=== PATIENT | male | born 1975 | race American Indian/Alaskan Native ===

== ENCOUNTER 2016-08-16 09:58 | Inpatient (IN) | payer MEDICARE, OTHER ==
[2016-08-16 10:12] VITALS: BMI 25.8
[2016-08-16] MEDS ORDERED: Benzoin Compound Tincture (60 ml) TOP STA (10:12)
[2016-08-16 10:36] LABS: BASO # 0.1 K/uL (0.0-0.2); BASO % 0.8 % (0.0-2.0); EOS # 0.2 K/uL (0.0-0.7); EOS % 3.2 % (0.0-4.0); HEMATOCRIT 29.2 % (35.0-51.0); LYMPH # 1.6 K/uL (1.0-4.3); LYMPH % 22.6 % (20.0-40.0); MEAN CELL VOLUME 78.1 fL (80.0-94.0); MEAN CORPUSCULAR HEMOGLOBIN 23.9 pg (27.0-31.0); MEAN CORPUSCULAR HGB CONC 30.5 g/dL (33.0-37.0); MEAN PLATELET VOLUME 9.4 fL (7.2-11.7); MONO # 0.4 K/uL (0.0-0.8); MONO % 5.8 % (0.0-10.0); RED CELL DISTRIBUTION WIDTH 19.7 % (11.5-14.5); WHITE BLOOD COUNT 6.9 K/uL (4.8-10.8)
[2016-08-16 10:44] LABS: INR 1.1
[2016-08-16] MEDS ORDERED: Midazolam 2 MG/2 ML VIAL ONE ×2 (10:47→11:04)
[2016-08-16] MEDS ORDERED: Midazolam 2 MG/2 ML VIAL IV STA ×2 (10:54→11:04)
[2016-08-16 11:03] LABS: POTASSIUM 3.7 mmol/L (3.6-5.2)
[2016-08-16] MEDS ORDERED: Propofol 10 mg/ml 1,000 MG/100 ML VIAL ONE (11:03)
[2016-08-16 11:05] LABS: ALB/GLOB RATIO 1.2 (1.0-2.1); BILIRUBIN,TOTAL 0.6 mg/dL (0.2-1.3); TOTAL PROTEIN 6.7 g/dL (6.3-8.3)
[2016-08-16 11:06] LABS: CALCIUM 9.2 mg/dl (8.6-10.4)
[2016-08-16] MEDS ORDERED: Propofol 10 mg/ml Inj (20 ML) IV ONE (11:13)
[2016-08-16] MEDS: Propofol 10 mg/ml 1,000 MG/100 ML VIAL IV PRN ×4 (11:16→18:36)
--- NOTE | 2016-08-16 11:25 | C.PDOC ---
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 As per EMS, patient had a witnessed arrest during hemodialysis. HD staff states to EMS, patient received one defibrillator prior to their arrival. Pt found unconscious with sinus tachycardia and palpable pulse. (+) airway compromise, that improved w/ B/L nasal trumpet prior to arrival. Patient given bicarb and calcium en route. Fingerstick 180. All other Hx unable to obtain due to clinical condition. 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 PER EMS, WITNESSED ARREST DURING HD. HD STAFF STATES TO EMS PT RECEIVED 1 DEFIB PRIOR TO THEIR ARRIVAL. FOUND PT UNCONSCIOUS + SINUS TACH W PALP PULSE. 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 GIVEN BICARB AND CALCIUM EN ROUTE. FS 180 RO UTO EXAM SEVERE DIST, HYPOTENSIVE 100% ON NRB HEENT PERRLA +PROFUSE ORAL SECRETIONS; NO EPISTAXIS B/L NASAL TRUMPETS IN PLACE NO STRIDOR LUNGS SPONT RESP CTA B/L NO W/R/R CV RRR SINUS TACH PALP RADIAL ABD NO DISTENTION, SOFT NEURO UNRESPONSIVE TO VERBAL +GAG REFLEX, +FOCAL RESPONSE TO PAIN SKIN DIAPH WARM MDM ?CARDIAC ARREST VS NEW ONSET SZ W BREAKTHROUGH SZ ACTIVITY IN ER; +RESP DISTRESS. Time Seen by Provider: 08/16/16 10:00 Chief Complaint (Nursing): Cardiac Arrest Past Medical History Reviewed: Historical Data, Nursing Documentation, Vital Signs Vital Signs: Last Vital Signs Temp 97.6 F 08/16/16 10:12 Pulse 110 H 08/16/16 14:00 Resp 18 08/16/16 14:00 BP 108/70 08/16/16 14:00 Pulse Ox 98 08/16/16 14:00 - Medical History PMH: Fractures (Rt. Finger Compound Fx.15 Yrs ago.), HTN, End Stage Renal Disease, Chronic Kidney Disease (ESRD) - [facility] Procedures INSERTION OF INFUSION DEV INTO INF VENA CAVA, PERC APPROACH (12/09/15) INSERTION OF INFUSION DEV INTO R FEMOR VEIN, PERC APPROACH (12/17/15) PERFORMANCE OF URINARY FILTRATION, SINGLE (12/09/15) Family History: States: No Known Family Hx - Social History Hx Alcohol Use: No Hx Substance Use: No - Immunization History Hx Tetanus Toxoid Vaccination: No Hx Influenza Vaccination: No Hx Pneumococcal Vaccination: No Review Of Systems Review Of Systems: ROS cannot be obtained secondary to pt's inabilty to answer questions. Physical Exam - Physical Exam Appears: Other (SEVERE DIST, HYPOTENSIVE 100% ON NRB) Skin: Warm, Diaphoretic Head: Other (PERRLA +PROFUSE ORAL SECRETIONS; NO EPISTAXIS B/L NASAL TRUMPETS IN PLACE) Eye(s): bilateral: PERRL Nose: No Epistaxis Cardiovascular: Rhythm Regular, No Murmur, Other (PALP RADIAL) Respiratory: No Stridor, Other (SPONT RESP CTA B/L NO W/R/R) Gastrointestinal/Abdominal: Soft, No Distention Neurological/Psych: Other ( UNRESPONSIVE TO VERBAL +GAG REFLEX, +FOCAL RESPONSE TO PAIN) ED Course And Treatment - Laboratory Results Result Diagrams: 08/16/16 10:29 08/16/16 10:29 ECG: Interpreted By Ct ECG Rhythm: Sinus Tachycardia (108) ECG Interpretation: Abnormal - Radiology CXR: Interpreted by Ct CXR Interpretation: Yes: Other (NABIL ARLENE) Endotracheal Intubation - Endotracheal Intubation Intubated With ETT Size: 8 Blade Type Used: Curved Indication: Respiratory Failure, Airway Protection Intubated: Orally Pre-Intubation Airway Assessment: Ventilated And Oxygenated, Appears To Have A difficult Airway Medications Used During Pre-Intubation: Midazolam Paralyzed With: Succinylcholine Post-Intubation Assessment: ETT Secured AT (cm): (22), Breath Sounds Equal Bilat , Placement Confirmed Via CXR, Color Change W/End Tidal CO2 Detector, Oxygen Saturation: (100) Procedure: Blank - Time Time Performed: 11:00 - Time Out Time Out: Patient ID confirmed - Procedure Procedure:: OROGASTRIC TUBE - Consent obtained: Consent obtained: Emergent consent implied - Performed by: Performed by:: Attending physician - Contraindications: Contraindications:: None - Patient Position Patient Position:: Supine - Location Location: Mouth - Tube Size Tube size Peruvian:: 14 - Result Result: Successful - Post-Procedure Post-procedure:: Vital signs stable, Other (+GASTRIC SOUND W AUSCULATION, + GASTRIC ASPIRATION) Progress - Re-Evaluation Re-evaluation Note: 08/16/16 10:20 EXAM UNCH 100% +GAG, FOCAL RESPONSE TO PAIN. 08/16/16 10:41 +NEW ONSET SEIZURE TONIC CLONIC. RELIEVED W ATIVAN. INCR RESP DISTRESS. SINUS TACH ON MONITOR, 100%. WILL INTUBATE FOR AIRPROTECTION UNABLE TO PROCEED W CODE FREEZE DUE TO CLIN COND @ THIS TIME. 08/16/16 10:50 RECUR SZ, REPEAT ATIVAN GIVEN. 08/16/16 11:31 REPEAT CXR: +ETT ABOVE BRYAN SP INTUBATION PENDING CT HEAD 08/16/16 12:13 D/W DR MCLAUGHLIN NO EMERGENT NEED FOR HD. WILL CONSULT. STATES PT IS CHRONICALLY ELEVATED HTN DIATOLIC <100. FAMILY @ BEDSIDE. PMD SKLOWER. STABLE ON VENT W HTN PT W EXCLUSION CRITERIA FOR CODE FREEZE. 08/16/16 13:33 CT HEAD NEG D/W DR RILEY ACCEPTS FOR ICU - Data Reviewed Data Reviewed: Lab, Diagnostic imaging, EKG, Old records - Critical Care Citical Care: Excluding Proc Time Critical Care Time: 120 minutes Medical Decision Making Medical Decision Making: MDM ?CARDIAC ARREST VS NEW ONSET SZ W BREAKTHROUGH SZ ACTIVITY IN ER; +RESP DISTRESS. 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 - Scribe Statement The provider has reviewed the documentation as recorded by the Scribe (Mikael Mathews) All medical record entries made by the Scribe were at my direction and personally dictated by me. I have reviewed the chart and agree that the record accurately reflects my personal performance of the history, physical exam, medical decision making, and the department course for this patient. I have also personally directed, reviewed, and agree with the discharge instructions and disposition. Decision To Admit - Pt Status Changed To: Hospital Disposition Of: Inpatient - Admit Certification Admit to Inpatient:: After my assessment, the patient will require hospitalization for at least two midnights. This is because of the severity of symptoms shown, intensity of services needed, and/or the medical risk in this patient being treated as an outpatient. - InPatient: Physician Admission Certification:: SEE NOTE - . Bed Request Type: ICU Admitting Physician: Arjun Beasley Patient Diagnosis: Respiratory failure, Cardiac arrest, New onset seizure, ESRD (end stage renal disease)
[2016-08-16 11:59] LABS: TROPONIN I 0.241 ng/mL (0.00-0.120)
--- NOTE | 2016-08-16 12:02 | RAD ---
PROCEDURE: CHEST RADIOGRAPH, 1 VIEW HISTORY: CARDIAC ARREST COMPARISON: 12/09/2015 FINDINGS: LUNGS: Moderate venous congestion with right hilar prominence and patchy left basilar airspace opacity. Right paratracheal airspace opacity may represent prominent vasculature. Correlation with lateral view may be helpful. Circumferential right pleural thickening. Correlation with chest CT may be helpful. PLEURA: As above. CARDIOVASCULAR: Cardiomegaly. OSSEOUS STRUCTURES: No significant abnormalities. VISUALIZED UPPER ABDOMEN: Normal. OTHER FINDINGS: None. IMPRESSION: Moderate venous congestion with right hilar prominence and patchy left basilar airspace opacity. Right paratracheal airspace opacity may represent prominent vasculature. Correlation with lateral view may be helpful. Circumferential right pleural thickening. Correlation with chest CT may be helpful. Cardiomegaly.
--- NOTE | 2016-08-16 12:16 | RAD ---
Chest x-ray single frontal view History: ET tube placement. Comparison: 08/17/2015 Findings: Endotracheal tube approximately 5 centimeters from the ari. Advancement approximately 1-2 centimeters may be helpful. NG tube with the distal tip not well visualized. Repeat study is recommended. Mild venous congestion. Patchy left basilar airspace opacity. Lucency along the right heart border which may represent Mach artifact. Clinical correlation. Repeat study may be helpful. Right hilar prominence. Persistent right paratracheal airspace opacity may represent prominent vasculature. Circumferential pleural thickening in the right deny thorax. Impression: Endotracheal tube approximately 5 centimeters from the ari. Advancement approximately 1-2 centimeters may be helpful. NG tube with the distal tip not well visualized. Repeat study is recommended. Mild venous congestion. Patchy left basilar airspace opacity. Lucency along the right heart border which may represent Mach artifact. Clinical correlation. Repeat study may be helpful. Right hilar prominence. Persistent right paratracheal airspace opacity may represent prominent vasculature. Circumferential pleural thickening in the right deny thorax.
--- NOTE | 2016-08-16 12:40 | CP.PCM.CON ---
History of Present Illness - History of Present Illness History of Present Illness: seen and examined and mother at bedside pt is a 41 yo male w/ hx of esrd on hd tts, femoral permcath. hx of htn, sec hyperparathyroidism. Was undergoing usual hd - noted to have high heart rate in 170 range, improved to 115 after hd terminated, pt passed out 2.5 hr of hd initiation. CPR done, pt shocked once, EMS found him unresponsive but good pulse. Pt was noticed to be seizing twice in ER, was intubated for airway protection. denies any recent illnesses, travel, sick contact. no fevers chills n/v/d/ neck stiffness. No prior hx of seizures. No missed hd, last hd monday. ROS: unable to obtain Allergies: NKDA PMHx: as per HPI surgeries: HD catheter family hx: NC Past Patient History - Infectious Disease Hx of Infectious Diseases: None - Past Medical History & Family History Past Medical History?: Yes - Past Social History Smoking Status: Never Smoked - CARDIAC Hx Hypertension: Yes - PULMONARY Hx Respiratory Disorders: No - NEUROLOGICAL Hx Neurological Disorder: No - HEENT Hx HEENT Problems: No - RENAL Hx Chronic Kidney Disease: Yes (ESRD) - ENDOCRINE/METABOLIC Hx Endocrine Disorders: No - HEMATOLOGICAL/ONCOLOGICAL Hx Blood Disorders: No - INTEGUMENTARY Hx Dermatological Problems: No - MUSCULOSKELETAL/RHEUMATOLOGICAL Hx Fractures: Yes (Rt. Finger Compound Fx.15 Yrs ago.) - GASTROINTESTINAL Hx Gastrointestinal Disorders: No - GENITOURINARY/GYNECOLOGICAL Hx Genitourinary Disorders: Yes Other/Comment: on HD VOIDS CLEAR YELLOW - PSYCHIATRIC Hx Substance Use: No - SURGICAL HISTORY Hx Surgeries: Yes Other/Comment: RIGHT GROIN DIAYSIS CATH 11/2015, P:D Catheter 4 Yrs. Ago,Rt. Perma cath - ANESTHESIA Hx Anesthesia: Yes Hx Anesthesia Reactions: No Hx Malignant Hyperthermia: No Meds Allergies/Adverse Reactions: Allergies Allergy/AdvReac Type Severity Reaction Status Date / Time shellfish Allergy Uncoded 08/16/16 10:09 Physical Exam - Constitutional Additional comments: intubated sedated - Head Exam Head Exam: ATRAUMATIC, NORMAL INSPECTION - Eye Exam Eye Exam: Normal appearance - ENT Exam Additional comments: et tube - Neck Exam Neck exam: Positive for: Normal Inspection - Respiratory Exam Additional comments: mechanical vent sounds - Cardiovascular Exam Cardiovascular Exam: Tachycardia, REGULAR RHYTHM - GI/Abdominal Exam GI & Abdominal Exam: Diminished Bowel Sounds, Distended, Soft - Extremities Exam Extremities exam: Positive for: normal inspection Results - Vital Signs Recent Vital Signs: Last Vital Signs Temp 97.6 F 08/16/16 10:12 Pulse 114 H 08/16/16 12:33 Resp 18 08/16/16 12:33 BP 99/69 L 08/16/16 12:33 Pulse Ox 99 08/16/16 12:33 - Labs Result Diagrams: 08/16/16 10:29 08/16/16 10:29 Labs: Laboratory Results - last 24 hr 08/16/16 08/16/16 08/16/16 10:17 10:29 10:29 WBC 6.9 RBC 3.74 L Hgb 8.9 L Hct 29.2 L MCV 78.1 L MCH 23.9 L MCHC 30.5 L RDW 19.7 H Plt Count 139 MPV 9.4 Neut % (Auto) 67.6 Lymph % (Auto) 22.6 Hinds % (Auto) 5.8 Eos % (Auto) 3.2 Baso % (Auto) 0.8 Neut # 4.7 Lymph # 1.6 Hinds # 0.4 Eos # 0.2 Baso # 0.1 PT 12.5 H INR 1.1 APTT 22 Sodium Potassium Chloride Carbon Dioxide Anion Gap BUN Creatinine Est GFR ( Amer) Est GFR (Non-Af Amer) POC Glucose (mg/dL) 138 H Random Glucose Calcium Total Bilirubin AST ALT Alkaline Phosphatase Troponin I NT-Pro-B Natriuret Pep Total Protein Albumin Globulin Albumin/Globulin Ratio Lipase 08/16/16 10:29 WBC RBC Hgb Hct MCV MCH MCHC RDW Plt Count MPV Neut % (Auto) Lymph % (Auto) Hinds % (Auto) Eos % (Auto) Baso % (Auto) Neut # Lymph # Hinds # Eos # Baso # PT INR APTT Sodium 139 Potassium 3.7 Chloride 92 L Carbon Dioxide 28 Anion Gap 23 H BUN 41 H Creatinine 9.0 H* D Est GFR ( Amer) 8 Est GFR (Non-Af Amer) 6 POC Glucose (mg/dL) Random Glucose 114 H Calcium 9.2 Total Bilirubin 0.6 AST 37 ALT 31 Alkaline Phosphatase 348 H Troponin I 0.2410 H* NT-Pro-B Natriuret Pep 05844 H Total Protein 6.7 Albumin 3.6 Globulin 3.1 Albumin/Globulin Ratio 1.2 Lipase 52 Assessment & Plan (1) Seizure Status: Acute (2) Cardiac arrest Status: Acute (3) Anemia Status: Acute (4) ESRD (end stage renal disease) Status: Chronic (5) HTN (hypertension) Status: Chronic - Assessment and Plan (Free Text) Assessment: -head imaging - icu admission -neuro consultation -repeat chem later today. -probable hd tomorrow if lytes stable. Pt had 2.5 hours today -iv antihypertensives per icu team
--- NOTE | 2016-08-16 13:29 | CT ---
PROCEDURE: CT HEAD WITHOUT CONTRAST. HISTORY: SEIZURE, CARDIAC ARREST COMPARISON: None available. TECHNIQUE: Axial computed tomography images were obtained through the head/brain without intravenous contrast. Radiation dose: Total exam DLP = 1046.86 mGy-cm. This CT exam was performed using one or more of the following dose reduction techniques: Automated exposure control, adjustment of the mA and/or kV according to patient size, and/or use of iterative reconstruction technique. FINDINGS: HEMORRHAGE: No intracranial hemorrhage. BRAIN: No mass effect or edema. No atrophy or chronic microvascular ischemic changes. VENTRICLES: Unremarkable. No hydrocephalus. CALVARIUM: Abnormal appearance of the calvarium, diffusely, with loss of normal inner and outer table definition. Granular appearance of the calvarium. Findings consistent with renal osteodystrophy. PARANASAL SINUSES: Mild chronic ethmoid and right maxillary sinusitis. MASTOID AIR CELLS: Unremarkable as visualized. No inflammatory changes. OTHER FINDINGS: There are 2 oral tubes identified, likely orogastric and joan tracheal. Please correlate. IMPRESSION: No intracranial mass, hemorrhage or evidence of acute infarct. 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
--- NOTE | 2016-08-16 13:55 | CP.PCM.CON ---
<Kacie Garcia - Last Filed: 08/16/16 14:03> History of Present Illness - History of Present Illness History of Present Illness: ICU Consult note Reason for consult: cardiac arrest Please note history as per and mother at bedside as patient was sedated on propofol, intubated on vent HPI: 41 year old male PMHx ESRD on HD TTS, HTN, secondary hyperparathyroidism presented s/p cardiac arrest at HD center. Patient was having dialysis for 2.5 hours and was complaining of dizziness and soon became unresponsive. Patient was coded and was defibrillated one time before EMS arrived. Patient was found unconscious with sinus tachycardia and palpable pulse and had bilateral nasal trumpets placed and was brought to ER. Patient was given bicarb and calcium en route to ED and fingerstick BG was 180. In the ED patient had profuse oral secretions and had two witnessed tonic clonic seizures and was given 2 doses of ativan. Patient intubated for airway protection and placed on vent. reports that since last year patient has been complaining of some SOB and dyspnea on exertion [especially when walking up stairs at home and walking 1/2 to 1 a block] and b/l leg swelling and pain. Patient also had an episode of dizziness 1 month ago during HD after which he had en episode of nonbloody nonbiliuos emesis. denied patient having missed HD, no prior hx of seizures , no travel hx, sick contacts, recent illnesses. denied patient complaining of any recent fever, chills, pain in his chest, cough, abd pain, bowel complaints. PMD: Dr Bearden Collar Feller: Dr. Mata/Alivia PMHx: ESRD on HD TTS, HTN, secondary hyperparathyroidism Meds: please see chart ALL: NKDA PSurg: femoral permacath 12/16/16 PHospitalization: Nov 2015 for hyperkalemia FamHx: no hx of CVA, [place]; lung cancer in aunt who is a smoker SocHx: denies tobacco, EtOH, drug use. Currently unemployed and lives at home with . Denied any recent travel. ROS: unobtainable Review of Systems - Review of Systems Systems not reviewed;Unavailable: Acuity of Condition Past Patient History - Infectious Disease Hx of Infectious Diseases: None - Past Medical History & Family History Past Medical History?: Yes - Past Social History Smoking Status: Never Smoked - CARDIAC Hx Hypertension: Yes - PULMONARY Hx Respiratory Disorders: No - NEUROLOGICAL Hx Neurological Disorder: No - HEENT Hx HEENT Problems: No - RENAL Hx Chronic Kidney Disease: Yes (ESRD) - ENDOCRINE/METABOLIC Hx Endocrine Disorders: No - HEMATOLOGICAL/ONCOLOGICAL Hx Blood Disorders: No - INTEGUMENTARY Hx Dermatological Problems: No - MUSCULOSKELETAL/RHEUMATOLOGICAL Hx Fractures: Yes (Rt. Finger Compound Fx.15 Yrs ago.) - GASTROINTESTINAL Hx Gastrointestinal Disorders: No - GENITOURINARY/GYNECOLOGICAL Hx Genitourinary Disorders: Yes Other/Comment: on HD VOIDS CLEAR YELLOW - PSYCHIATRIC Hx Substance Use: No - SURGICAL HISTORY Hx Surgeries: Yes Other/Comment: RIGHT GROIN DIAYSIS CATH 11/2015, P:D Catheter 4 Yrs. Ago,Rt. Perma cath - ANESTHESIA Hx Anesthesia: Yes Hx Anesthesia Reactions: No Hx Malignant Hyperthermia: No Meds Allergies/Adverse Reactions: Allergies Allergy/AdvReac Type Severity Reaction Status Date / Time shellfish Allergy Uncoded 08/16/16 10:09 - Medications Medications: Current Medications Propofol (Diprivan) 1,000 mg in 100 mls @ 4.972 mls/hr IV .Q20H7M PRN; Protocol ; 9 MCG/KG/MIN PRN Reason: TITRATE PER MD ORDER Last Admin: 08/16/16 13:41 Dose: 4.972 mls/hr Physical Exam - Constitutional Appears: Other (sedated, intubated on vent) - Head Exam Head Exam: ATRAUMATIC, NORMAL INSPECTION, NORMOCEPHALIC - Eye Exam Eye Exam: Normal appearance, PERRL. absent: Conjunctival injection, Scleral icterus Pupil Exam: NORMAL ACCOMODATION, PERRL - ENT Exam ENT Exam: Mucous Membranes Moist Additional comments: ET tube in place- oral secretions noted - Neck Exam Neck exam: Positive for: Normal Inspection. Negative for: Lymphadenopathy - Respiratory Exam Respiratory Exam: Decreased Breath Sounds (vent sounds heard throughout), NORMAL BREATHING PATTERN. absent: Accessory Muscle Use, Rales, Rhonchi, Wheezes Additional comments: intubated on vent (14, 5, 550, 100%) - Cardiovascular Exam Cardiovascular Exam: Tachycardia, REGULAR RHYTHM, +S1, +S2. absent: Systolic Murmur - GI/Abdominal Exam GI & Abdominal Exam: Normal Bowel Sounds, Soft. absent: Firm - Extremities Exam Extremities exam: Positive for: normal capillary refill, pedal edema (trace b/l) , pedal pulses present - Neurological Exam Additional comments: sedated on propofol gtt - Skin Skin Exam: Dry, Intact, Normal Color, Warm Results - Vital Signs Recent Vital Signs: Last Vital Signs Temp 97.6 F 08/16/16 10:12 Pulse 104 H 08/16/16 13:30 Resp 18 08/16/16 13:30 BP 112/73 08/16/16 13:30 Pulse Ox 100 08/16/16 13:30 - Labs Result Diagrams: 08/16/16 10:29 08/16/16 10:29 Labs: Laboratory Results - last 24 hr 08/16/16 08/16/16 08/16/16 10:17 10:29 10:29 WBC 6.9 RBC 3.74 L Hgb 8.9 L Hct 29.2 L MCV 78.1 L MCH 23.9 L MCHC 30.5 L RDW 19.7 H Plt Count 139 MPV 9.4 Neut % (Auto) 67.6 Lymph % (Auto) 22.6 [place] % (Auto) 5.8 Eos % (Auto) 3.2 Baso % (Auto) 0.8 Neut # 4.7 Lymph # 1.6 [place] # 0.4 Eos # 0.2 Baso # 0.1 PT 12.5 H INR 1.1 APTT 22 Sodium Potassium Chloride Carbon Dioxide Anion Gap BUN Creatinine Est GFR ( Amer) Est GFR (Non-Af Amer) POC Glucose (mg/dL) 138 H Random Glucose Calcium Total Bilirubin AST ALT Alkaline Phosphatase Troponin I NT-Pro-B Natriuret Pep Total Protein Albumin Globulin Albumin/Globulin Ratio Lipase 08/16/16 10:29 WBC RBC Hgb Hct MCV MCH MCHC RDW Plt Count MPV Neut % (Auto) Lymph % (Auto) [place] % (Auto) Eos % (Auto) Baso % (Auto) Neut # Lymph # [place] # Eos # Baso # PT INR APTT Sodium 139 Potassium 3.7 Chloride 92 L Carbon Dioxide 28 Anion Gap 23 H BUN 41 H Creatinine 9.0 H* D Est GFR ( Amer) 8 Est GFR (Non-Af Amer) 6 POC Glucose (mg/dL) Random Glucose 114 H Calcium 9.2 Total Bilirubin 0.6 AST 37 ALT 31 Alkaline Phosphatase 348 H Troponin I 0.2410 H* NT-Pro-B Natriuret Pep 72326 H Total Protein 6.7 Albumin 3.6 Globulin 3.1 Albumin/Globulin Ratio 1.2 Lipase 52 Assessment & Plan - Assessment and Plan (Free Text) Assessment: 41 year old male PMHx ESRD on HD TTS, HTN, secondary hyperparathyroidism presented s/p cardiac arrest at HD center Plan: Neuro -intubated and sedated on propofol gtt -patient had 2 seizures in ER and was given ATivan 2mg x 2 -f/u EEG -CT head: unremarkable Cardiovascular -Patient s/p cardiac arrest and 1 defibrillation in HD center -f/u lipid panel -troponin 0.2410 -f/u repeat PATRICK with EKG -proBNP 96535 -f/u Echo -f/u D dimer -f/u venous dopplers b/l -ASA 81mg po daily -Plavix 75mg po daily -Crestor 10mg po hs -Metoprolol tartate 12.5mg po bid -Dr Haynes consulted Respiratory -respiratory failure -intubated on vent (5, 14, 550, 100%) -f/u ABG shock panel -CXR: mild venous congestion; patchy L basilar airspace opacity; lucency along R heart border which may represent artifact; R hilar prominence; persistent R paratracheal airspace opacity may represent prominent vascularture; circumferential pleural thickening in R hemithorax GI -no acute issues Renal -ESRD on HD TTS -probable HD tomorrow 08/17 -Dr Bunch consulted Heme -Anemia of chronic disease -H&H stable Endo -f/u HgbA1c -Accucheck Q6 -RISS q6 ID -f/u blood culture -f/u sputum culture DVT ppx: Heparin 5000u sc q12; SCD c/i for DVT suspection GI ppx: Pepcid 20mg ivp daily Code status: full code Case discussed with Dr. Hilario Garcia PGY2 <Neo Rich - Last Filed: 08/16/16 16:31> Meds - Medications Medications: Current Medications Aspirin (Aspirin Chewable) 81 mg PO DAILY [facility] Last Admin: 08/16/16 15:46 Dose: 81 mg Clopidogrel Bisulfate (Plavix) 75 mg PO DAILY [facility] Last Admin: 08/16/16 15:46 Dose: 75 mg Famotidine (Pepcid) 20 mg IVP DAILY [facility] Last Admin: 08/16/16 15:45 Dose: 20 mg Heparin Sodium (Porcine) (Heparin) 5,000 units SC Q12 [facility] Propofol (Diprivan) 1,000 mg in 100 mls @ 4.972 mls/hr IV .Q20H7M PRN; Protocol ; 9 MCG/KG/MIN PRN Reason: TITRATE PER MD ORDER Last Admin: 08/16/16 13:45 Dose: 18.1 mcg/kg/min, 10 mls/hr Insulin Aspart (Novolog) 0 unit SC Q6 [facility] PRN Reason: Protocol Metoprolol Tartrate (Lopressor) 12.5 mg PO BID [facility] Rosuvastatin Calcium (Crestor) 10 mg PO HS [facility] Results - Vital Signs Recent Vital Signs: Last Vital Signs Temp 98.7 F 08/16/16 14:45 Pulse 91 H 08/16/16 15:30 Resp 14 08/16/16 15:30 BP 130/98 H 08/16/16 14:38 Pulse Ox 100 08/16/16 16:11 - Labs Result Diagrams: 08/16/16 10:29 08/16/16 10:29 Labs: Laboratory Results - last 24 hr 08/16/16 08/16/16 08/16/16 14:59 15:30 15:30 D-Dimer, Quantitative 936 H Puncture Site Lr pCO2 36 pO2 421 H HCO3 28.8 H ABG pH 7.50 H ABG Total CO2 29.2 H ABG O2 Saturation 99.3 H ABG Base Excess 4.9 H Alberto Test Unable ABG Potassium 3.1 L A-a O2 Difference 247.0 Respiratory Index 0.6 Sodium 140.0 Chloride 106.0 Glucose 77 Lactate 1.4 Mechanical Rate 14 FiO2 100.0 Tidal Volume 550 PEEP 5 Hemoglobin A1c 5.4 Arterial Blood Potassium 3.1 L Attending/Attestation - Attestation I have personally seen and examined this patient.: Yes I have fully participated in the care of the patient.: Yes I have reviewed all pertinent clinical information: Yes Notes (Text): 08/16/16 16:25 Patient seen and examined. 41 year old male PMHx ESRD on HD TTS, HTN, secondary hyperparathyroidism presented s/p cardiac arrest at HD center, Status post cardioversion for ventricular tachycardia Intubated in the emergency room for seizures Now sedated on propofol Neurology and cardiology evaluation
[2016-08-16] MEDS ORDERED: (Novolog) Insulin Aspart, Recombinant 100 u/ml 10 ml vial SC SCH (14:30)
[2016-08-16 14:34] LABS: MAGNESIUM 2.3 mg/dL (1.6-2.3); PHOSPHOROUS 4.8 mg/dL (2.5-4.5)
[2016-08-16 15:03] LABS: ABG ALLEN TEST UNABLE; ABG MECHANICAL RATE 14; ATERIAL BLOOD GAS PEEP 5; DRAW SITE LR
--- NOTE | 2016-08-16 15:18 | CP.PCM.HP ---
<Kacie Garcia - Last Filed: 08/16/16 15:16> History of Present Illness - History of Present Illness History of Present Illness: Please note history as per and mother at bedside as patient was sedated on propofol, intubated on vent HPI: 41 year old male PMHx ESRD on HD TTS, HTN, secondary hyperparathyroidism presented s/p cardiac arrest at HD center. Patient was having dialysis for 2.5 hours and was complaining of dizziness and soon became unresponsive. Patient was coded and was defibrillated one time before EMS arrived. Patient was found unconscious with sinus tachycardia and palpable pulse and had bilateral nasal trumpets placed and was brought to ER. Patient was given bicarb and calcium en route to ED and fingerstick BG was 180. In the ED patient had profuse oral secretions and had two witnessed tonic clonic seizures and was given 2 doses of ativan. Patient intubated for airway protection and placed on vent. reports that since last year patient has been complaining of some SOB and dyspnea on exertion [especially when walking up stairs at home and walking 1/2 to 1 a block] and b/l leg swelling and pain. Patient also had an episode of dizziness 1 month ago during HD after which he had en episode of nonbloody nonbiliuos emesis. denied patient having missed HD, no prior hx of seizures , no travel hx, sick contacts, recent illnesses. denied patient complaining of any recent fever, chills, pain in his chest, cough, abd pain, bowel complaints. PMD: Dr Bearden Content Curator: Dr. Mata/Alivia PMHx: ESRD on HD TTS, HTN, secondary hyperparathyroidism Meds: please see chart ALL: NKDA PSurg: femoral permacath 12/16/16 PHospitalization: Nov 2015 for hyperkalemia FamHx: no hx of CVA, [place]; lung cancer in aunt who is a smoker SocHx: denies tobacco, EtOH, drug use. Currently unemployed and lives at home with . Denied any recent travel. ROS: unobtainable Present on Admission - Present on Admission Any Indicators Present on Admission: No Review of Systems - Review of Systems Systems not reviewed;Unavailable: Acuity of Condition Past Patient History - Infectious Disease Hx of Infectious Diseases: None - Past Medical History & Family History Past Medical History?: Yes - Past Social History Smoking Status: Never Smoked - CARDIAC Hx Hypertension: Yes - PULMONARY Hx Respiratory Disorders: No - NEUROLOGICAL Hx Neurological Disorder: No - HEENT Hx HEENT Problems: No - RENAL Hx Chronic Kidney Disease: Yes (ESRD) - ENDOCRINE/METABOLIC Hx Endocrine Disorders: No - HEMATOLOGICAL/ONCOLOGICAL Hx Blood Disorders: No - INTEGUMENTARY Hx Dermatological Problems: No - MUSCULOSKELETAL/RHEUMATOLOGICAL Hx Fractures: Yes (Rt. Finger Compound Fx.15 Yrs ago.) - GASTROINTESTINAL Hx Gastrointestinal Disorders: No - GENITOURINARY/GYNECOLOGICAL Hx Genitourinary Disorders: Yes Other/Comment: on HD VOIDS CLEAR YELLOW - PSYCHIATRIC Hx Substance Use: No - SURGICAL HISTORY Hx Surgeries: Yes Other/Comment: RIGHT GROIN DIAYSIS CATH 11/2015, P:D Catheter 4 Yrs. Ago,Rt. Perma cath - ANESTHESIA Hx Anesthesia: Yes Hx Anesthesia Reactions: No Hx Malignant Hyperthermia: No Meds Allergies/Adverse Reactions: Allergies Allergy/AdvReac Type Severity Reaction Status Date / Time shellfish Allergy DIZZINESS Uncoded 08/16/16 16:54 Physical Exam - Constitutional Appears: Other (sedated on propofol gtt and intubated) - Head Exam Head Exam: ATRAUMATIC, NORMAL INSPECTION, NORMOCEPHALIC - Eye Exam Eye Exam: Normal appearance, PERRL. absent: Conjunctival injection, Scleral icterus Pupil Exam: NORMAL ACCOMODATION, PERRL - ENT Exam ENT Exam: Mucous Membranes Moist Additional comments: ET tube in place- oral secretions noted - Neck Exam Neck exam: Positive for: Normal Inspection. Negative for: Lymphadenopathy - Respiratory Exam Respiratory Exam: Decreased Breath Sounds (vent sounds heard throughout), NORMAL BREATHING PATTERN. absent: Rales, Rhonchi, Wheezes Additional comments: intubated on vent (14, 5, 550, 100%) - Cardiovascular Exam Cardiovascular Exam: Tachycardia, REGULAR RHYTHM, +S1, +S2. absent: Systolic Murmur - GI/Abdominal Exam GI & Abdominal Exam: Normal Bowel Sounds, Soft. absent: Firm - Extremities Exam Extremities exam: Positive for: normal capillary refill, pedal edema, pedal pulses present - Neurological Exam Additional comments: sedated on propofol gtt - Skin Skin Exam: Dry, Intact, Normal Color, Warm Results - Vital Signs Recent Vital Signs: Last Vital Signs Temp 97.6 F 08/16/16 10:12 Pulse 110 H 08/16/16 14:00 Resp 18 08/16/16 14:00 BP 108/70 08/16/16 14:00 Pulse Ox 98 08/16/16 14:00 - Labs Result Diagrams: 08/16/16 10:29 08/16/16 10:29 Labs: Laboratory Results - last 24 hr 08/16/16 08/16/16 08/16/16 10:17 10:29 10:29 WBC 6.9 RBC 3.74 L Hgb 8.9 L Hct 29.2 L MCV 78.1 L MCH 23.9 L MCHC 30.5 L RDW 19.7 H Plt Count 139 MPV 9.4 Neut % (Auto) 67.6 Lymph % (Auto) 22.6 [place] % (Auto) 5.8 Eos % (Auto) 3.2 Baso % (Auto) 0.8 Neut # 4.7 Lymph # 1.6 [place] # 0.4 Eos # 0.2 Baso # 0.1 PT 12.5 H INR 1.1 APTT 22 Puncture Site pCO2 pO2 HCO3 ABG pH ABG Total CO2 ABG O2 Saturation ABG Base Excess Alberto Test ABG Potassium A-a O2 Difference Respiratory Index Glucose Lactate Mechanical Rate FiO2 Tidal Volume PEEP Sodium Potassium Chloride Carbon Dioxide Anion Gap BUN Creatinine Est GFR ( Amer) Est GFR (Non-Af Amer) POC Glucose (mg/dL) 138 H Random Glucose Calcium Phosphorus Magnesium Total Bilirubin AST ALT Alkaline Phosphatase Troponin I NT-Pro-B Natriuret Pep Total Protein Albumin Globulin Albumin/Globulin Ratio Lipase Arterial Blood Potassium 08/16/16 08/16/16 10:29 14:59 WBC RBC Hgb Hct MCV MCH MCHC RDW Plt Count MPV Neut % (Auto) Lymph % (Auto) [place] % (Auto) Eos % (Auto) Baso % (Auto) Neut # Lymph # [place] # Eos # Baso # PT INR APTT Puncture Site Lr pCO2 36 pO2 421 H HCO3 28.8 H ABG pH 7.50 H ABG Total CO2 29.2 H ABG O2 Saturation 99.3 H ABG Base Excess 4.9 H Alberto Test Unable ABG Potassium 3.1 L A-a O2 Difference 247.0 Respiratory Index 0.6 Glucose 77 Lactate 1.4 Mechanical Rate 14 FiO2 100.0 Tidal Volume 550 PEEP 5 Sodium 139 140.0 Potassium 3.7 Chloride 92 L 106.0 Carbon Dioxide 28 Anion Gap 23 H BUN 41 H Creatinine 9.0 H* D Est GFR ( Amer) 8 Est GFR (Non-Af Amer) 6 POC Glucose (mg/dL) Random Glucose 114 H Calcium 9.2 Phosphorus 4.8 H Magnesium 2.3 Total Bilirubin 0.6 AST 37 ALT 31 Alkaline Phosphatase 348 H Troponin I 0.2410 H* NT-Pro-B Natriuret Pep 57467 H Total Protein 6.7 Albumin 3.6 Globulin 3.1 Albumin/Globulin Ratio 1.2 Lipase 52 Arterial Blood Potassium 3.1 L Assessment & Plan - Assessment and Plan (Free Text) Assessment: 41 year old male PMHx ESRD on HD TTS, HTN, secondary hyperparathyroidism presented s/p cardiac arrest at HD center Plan: Neuro -intubated and sedated on propofol gtt -patient had 2 seizures in ER and was given ATivan 2mg x 2 -f/u EEG -CT head: unremarkable Cardiovascular -Patient s/p cardiac arrest and 1 defibrillation in HD center -f/u lipid panel -troponin 0.2410 -f/u repeat PATRICK with EKG -proBNP 80500 -f/u Echo -f/u D dimer -f/u venous dopplers b/l -ASA 81mg po daily -Plavix 75mg po daily -Crestor 10mg po hs -Metoprolol tartate 12.5mg po bid -Dr Haynes consulted Respiratory -respiratory failure -intubated on vent (5, 14, 550, 100%) -f/u ABG shock panel -CXR: mild venous congestion; patchy L basilar airspace opacity; lucency along R heart border which may represent artifact; R hilar prominence; persistent R paratracheal airspace opacity may represent prominent vascularture; circumferential pleural thickening in R hemithorax GI -no acute issues Renal -ESRD on HD TTS -probable HD tomorrow 08/17 -Dr Bunch consulted Heme -Anemia of chronic disease -H&H stable Endo -f/u HgbA1c -Accucheck Q6 -RISS q6 ID -f/u blood culture -f/u sputum culture DVT ppx: Heparin 5000u sc q12; SCD c/i for DVT suspection GI ppx: Pepcid 20mg ivp daily Code status: full code Case discussed with Dr. Hilario Garcia PGY2 <Arjun Beasley H - Last Filed: 08/16/16 17:21> Results - Vital Signs Recent Vital Signs: Last Vital Signs Temp 97.6 F 08/16/16 16:00 Pulse 96 H 08/16/16 16:37 Resp 16 08/16/16 16:37 BP 102/72 08/16/16 16:37 Pulse Ox 100 08/16/16 16:37 - Labs Result Diagrams: 08/16/16 10:29 08/16/16 10:29 Labs: Laboratory Results - last 24 hr 08/16/16 08/16/16 08/16/16 14:59 15:30 15:30 D-Dimer, Quantitative Puncture Site Lr pCO2 36 pO2 421 H HCO3 28.8 H ABG pH 7.50 H ABG Total CO2 29.2 H ABG O2 Saturation 99.3 H ABG Base Excess 4.9 H Alberto Test Unable ABG Potassium 3.1 L A-a O2 Difference 247.0 Respiratory Index 0.6 Sodium 140.0 Chloride 106.0 Glucose 77 Lactate 1.4 Mechanical Rate 14 FiO2 100.0 Tidal Volume 550 PEEP 5 Hemoglobin A1c 5.4 Phosphorus 4.9 H Magnesium 2.3 Total Creatine Kinase 439 H CK-MB (Mass) 5.80 H Troponin I, Quant 0.3480 H* Arterial Blood Potassium 3.1 L 08/16/16 15:30 D-Dimer, Quantitative 936 H Puncture Site pCO2 pO2 HCO3 ABG pH ABG Total CO2 ABG O2 Saturation ABG Base Excess Alberto Test ABG Potassium A-a O2 Difference Respiratory Index Sodium Chloride Glucose Lactate Mechanical Rate FiO2 Tidal Volume PEEP Hemoglobin A1c Phosphorus Magnesium Total Creatine Kinase CK-MB (Mass) Troponin I, Quant Arterial Blood Potassium Attending/Attestation - Attestation I have personally seen and examined this patient.: Yes I have fully participated in the care of the patient.: Yes I have reviewed all pertinent clinical information: Yes Notes (Text): 08/16/16 17:16 Medical Attending: Patient was seen and examined by me as well. Patient as mentioned above in the resident note was at HD and had 2 and half hours of HD when he lossed consciousness and required a shock to be given - the rhythm is not clear, he is on telemetry monitoring now - there is some recorded bigemny noted. He is currently intubated and also on propofol for sedation Family members present at bedside including his mother, father, sister and we all discussed. The patient was previously here at [facility] in November 2015 for need of repair of the femoral HD access and also because of an elevated K. Hopefully he will be able to successfully be extubated soon. Head CT did not suggest any hemorrhage seen. There is a 2 decho ordered. thank you Arjun Beasley
[2016-08-16 15:46] LABS: MAGNESIUM 2.3 mg/dL (1.6-2.3); PHOSPHOROUS 4.9 mg/dL (2.5-4.5)
[2016-08-16] MEDS: (Novolog) Insulin Aspart, Recombinant 100 u/ml 10 ml vial SC SCH (18:23)
--- NOTE | 2016-08-16 19:59 | CP.PCM.CON ---
History of Present Illness - History of Present Illness History of Present Illness: Reason For Consultation: Cardiac arrest Patient intubated. Info from the chart HPI: 41 year old male PMHx ESRD on HD TTS, HTN, secondary hyperparathyroidism presented s/p cardiac arrest at HD center. Patient was having dialysis for 2.5 hours and was complaining of dizziness and soon became unresponsive. Patient was coded and was defibrillated one time before EMS arrived. Patient was found unconscious with sinus tachycardia and palpable pulse and had bilateral nasal trumpets placed and was brought to ER. Patient was given bicarb and calcium en route to ED and fingerstick BG was 180. In the ED patient had profuse oral secretions and had two witnessed tonic clonic seizures and was given 2 doses of ativan. Patient intubated for airway protection and placed on vent. reports that since last year patient has been complaining of some SOB and dyspnea on exertion [especially when walking up stairs at home and walking 1/2 to 1 a block] and b/l leg swelling and pain. Patient also had an episode of dizziness 1 month ago during HD after which he had en episode of nonbloody nonbiliuos emesis. denied patient having missed HD, no prior hx of seizures , no travel hx, sick contacts, recent illnesses. denied patient complaining of any recent fever, chills, pain in his chest, cough, abd pain, bowel complaints. PMD: Dr Bearden Central Processing Technician: Dr. Mata/Alivia PMHx: ESRD on HD TTS, HTN, secondary hyperparathyroidism Meds: please see chart ALL: NKDA PSurg: femoral permacath 12/16/16 PHospitalization: Nov 2015 for hyperkalemia FamHx: no hx of CVA, MA; lung cancer in aunt who is a smoker SocHx: denies tobacco, EtOH, drug use. Currently unemployed and lives at home with . Denied any recent travel. ROS: unobtainable Present on Admission - Present on Admission Any Indicators Present on Admission: No Review of Systems - Review of Systems Systems not reviewed;Unavailable: Acuity of Condition Meds Allergies/Adverse Reactions: Allergies Allergy/AdvReac Type Severity Reaction Status Date / Time shellfish Allergy DIZZINESS Uncoded 08/16/16 16:54 Physical Exam - Constitutional Appears: Other (sedated on propofol gtt and intubated) - Head Exam Head Exam: ATRAUMATIC, NORMAL INSPECTION, NORMOCEPHALIC - Eye Exam Eye Exam: Normal appearance, PERRL. absent: Conjunctival injection, Scleral icterus Pupil Exam: NORMAL ACCOMODATION, PERRL - ENT Exam ENT Exam: Mucous Membranes Moist Additional comments: ET tube in place- oral secretions noted - Neck Exam Neck exam: Positive for: Normal Inspection. Negative for: Lymphadenopathy - Respiratory Exam Respiratory Exam: Decreased Breath Sounds (vent sounds heard throughout), NORMAL BREATHING PATTERN. absent: Rales, Rhonchi, Wheezes Additional comments: intubated on vent (14, 5, 550, 100%) - Cardiovascular Exam Cardiovascular Exam: Tachycardia, REGULAR RHYTHM, +S1, +S2. absent: Systolic Murmur - GI/Abdominal Exam GI & Abdominal Exam: Normal Bowel Sounds, Soft. absent: Firm - Extremities Exam Extremities exam: Positive for: normal capillary refill, pedal edema, pedal pulses present - Neurological Exam Additional comments: sedated on propofol gtt - Skin Skin Exam: Dry, Intact, Normal Color, Warm Past Patient History - Infectious Disease Hx of Infectious Diseases: None - Past Medical History & Family History Past Medical History?: Yes - Past Social History Smoking Status: Never Smoked - CARDIAC Hx Hypertension: Yes - PULMONARY Hx Respiratory Disorders: No - NEUROLOGICAL Hx Neurological Disorder: No - HEENT Hx HEENT Problems: No - RENAL Hx Dialysis: Yes Type of Dialysis Access: Permacath Date of Last Dialysis Treatment: 08/16/16 - ENDOCRINE/METABOLIC Hx Endocrine Disorders: No - HEMATOLOGICAL/ONCOLOGICAL Hx Blood Disorders: No - INTEGUMENTARY Hx Dermatological Problems: No - MUSCULOSKELETAL/RHEUMATOLOGICAL Hx Falls: No - GASTROINTESTINAL Hx Gastrointestinal Disorders: No - GENITOURINARY/GYNECOLOGICAL Hx Genitourinary Disorders: Yes Other/Comment: on HD VOIDS CLEAR YELLOW - PSYCHIATRIC Hx Substance Use: No - SURGICAL HISTORY Hx Surgeries: Yes Other/Comment: RIGHT GROIN DIAYSIS CATH 11/2015, P:D Catheter 4 Yrs. Ago,Rt. Perma cath - ANESTHESIA Hx Anesthesia: Yes Hx Anesthesia Reactions: No Hx Malignant Hyperthermia: No Meds Allergies/Adverse Reactions: Allergies Allergy/AdvReac Type Severity Reaction Status Date / Time shellfish Allergy DIZZINESS Uncoded 08/16/16 16:54 - Medications Medications: Current Medications Aspirin (Aspirin Chewable) 81 mg PO DAILY [facility] Last Admin: 08/16/16 15:46 Dose: 81 mg Clopidogrel Bisulfate (Plavix) 75 mg PO DAILY [facility] Last Admin: 08/16/16 15:46 Dose: 75 mg Famotidine (Pepcid) 20 mg IVP DAILY [facility] Last Admin: 08/16/16 15:45 Dose: 20 mg Heparin Sodium (Porcine) (Heparin) 5,000 units SC Q12 [facility] Propofol (Diprivan) 1,000 mg in 100 mls @ 4.972 mls/hr IV .Q20H7M PRN; Protocol ; 9 MCG/KG/MIN PRN Reason: TITRATE PER MD ORDER Last Admin: 08/16/16 18:36 Dose: 18.1 mcg/kg/min, 10 mls/hr Insulin Aspart (Novolog) 0 unit SC Q6 [facility] PRN Reason: Protocol Last Admin: 08/16/16 18:23 Dose: Not Given Metoprolol Tartrate (Lopressor) 12.5 mg PO BID [facility] Last Admin: 08/16/16 17:30 Dose: 12.5 mg Rosuvastatin Calcium (Crestor) 10 mg PO [facility] Results - Vital Signs Recent Vital Signs: Last Vital Signs Temp 97.6 F 08/16/16 16:00 Pulse 85 08/16/16 18:38 Resp 20 08/16/16 18:38 BP 99/72 L 08/16/16 18:38 Pulse Ox 100 08/16/16 18:38 - Labs Result Diagrams: 08/16/16 10:29 08/16/16 10:29 Labs: Laboratory Results - last 24 hr 08/16/16 08/16/16 08/16/16 14:59 15:30 15:30 D-Dimer, Quantitative Puncture Site Lr pCO2 36 pO2 421 H HCO3 28.8 H ABG pH 7.50 H ABG Total CO2 29.2 H ABG O2 Saturation 99.3 H ABG Base Excess 4.9 H Alberto Test Unable ABG Potassium 3.1 L A-a O2 Difference 247.0 Respiratory Index 0.6 Sodium 140.0 Chloride 106.0 Glucose 77 Lactate 1.4 Mechanical Rate 14 FiO2 100.0 Tidal Volume 550 PEEP 5 POC Glucose (mg/dL) Hemoglobin A1c 5.4 Phosphorus 4.9 H Magnesium 2.3 Total Creatine Kinase 439 H CK-MB (Mass) 5.80 H Troponin I, Quant 0.3480 H* Arterial Blood Potassium 3.1 L 08/16/16 08/16/16 15:30 17:40 D-Dimer, Quantitative 936 H Puncture Site pCO2 pO2 HCO3 ABG pH ABG Total CO2 ABG O2 Saturation ABG Base Excess Alberto Test ABG Potassium A-a O2 Difference Respiratory Index Sodium Chloride Glucose Lactate Mechanical Rate FiO2 Tidal Volume PEEP POC Glucose (mg/dL) 89 Hemoglobin A1c Phosphorus Magnesium Total Creatine Kinase CK-MB (Mass) Troponin I, Quant Arterial Blood Potassium Assessment & Plan - Assessment and Plan (Free Text) Assessment: Assessment & Plan - Assessment and Plan (Free Text) Assessment: 41 year old male PMHx ESRD on HD TTS, HTN, secondary hyperparathyroidism presented s/p cardiac arrest at HD center Plan: Neuro -intubated and sedated on propofol gtt -patient had 2 seizures in ER and was given ATivan 2mg x 2 -f/u EEG -CT head: unremarkable Cardiovascular -Patient s/p cardiac arrest and 1 defibrillation in HD center -f/u lipid panel -troponin 0.2410 -f/u repeat PATRICK with EKG -proBNP 13208 -f/u Echo -f/u D dimer -f/u venous dopplers b/l -ASA 81mg po daily -Plavix 75mg po daily -Crestor 10mg po hs -Metoprolol tartate 12.5mg po bid Check ECHO Cardiac cath Respiratory -respiratory failure -intubated on vent (5, 14, 550, 100%) -f/u ABG shock panel -CXR: mild venous congestion; patchy L basilar airspace opacity; lucency along R heart border which may represent artifact; R hilar prominence; persistent R paratracheal airspace opacity may represent prominent vascularture; circumferential pleural thickening in R hemithorax GI -no acute issues Renal -ESRD on HD TTS -probable HD tomorrow 08/17 -Dr Bunch consulted Heme -Anemia of chronic disease -H&H stable Endo -f/u HgbA1c -Accucheck Q6 -RISS q6 ID -f/u blood culture -f/u sputum culture DVT ppx: Heparin 5000u sc q12; SCD c/i for DVT suspection GI ppx: Pepcid 20mg ivp daily Code status: full code
[2016-08-17] MEDS: (Novolog) Insulin Aspart, Recombinant 100 u/ml 10 ml vial SC SCH ×2 (00:45→06:00)
[2016-08-17] MEDS ORDERED: Sodium Chloride 0.9% 500 ML IV ONE ×2 (01:14→02:24)
[2016-08-17] MEDS: Propofol 10 mg/ml 1,000 MG/100 ML VIAL IV PRN (02:31)
[2016-08-17 04:49] LABS: ABG MECHANICAL RATE 12; ARTERIAL BLOOD HGB O2 SAT 96.1 % (95.0-98.0); ATERIAL BLOOD GAS PEEP 5; CARBOXYHEMOGLOBIN 1.6 % (0.5-1.5); DRAW SITE LB; HHB 1.4 % (0.0-5.0); METHEMOGLOBIN 0.9 % (0.0-3.0)
[2016-08-17 06:19] LABS: BASO # 0.1 K/uL (0.0-0.2); BASO % 1.2 % (0.0-2.0); EOS # 0.2 K/uL (0.0-0.7); EOS % 2.2 % (0.0-4.0); HEMATOCRIT 28.9 % (35.0-51.0); LYMPH % 14.7 % (20.0-40.0); MEAN CELL VOLUME 79.1 fL (80.0-94.0); MEAN CORPUSCULAR HEMOGLOBIN 24.4 pg (27.0-31.0); MEAN CORPUSCULAR HGB CONC 30.8 g/dL (33.0-37.0); MEAN PLATELET VOLUME 9.9 fL (7.2-11.7); MONO # 0.4 K/uL (0.0-0.8); MONO % 5.8 % (0.0-10.0); NRBC % 0.1 % (0.0-2.0); RED CELL DISTRIBUTION WIDTH 20.6 % (11.5-14.5); WHITE BLOOD COUNT 6.9 K/uL (4.8-10.8)
[2016-08-17 06:21] LABS: ALB/GLOB RATIO 1.1 (1.0-2.1); BILIRUBIN,TOTAL 0.6 mg/dL (0.2-1.3); TOTAL PROTEIN 5.6 g/dL (6.3-8.3)
[2016-08-17 06:22] LABS: CALCIUM 8.4 mg/dl (8.6-10.4); MAGNESIUM 2.1 mg/dL (1.6-2.3); PHOSPHOROUS 5.7 mg/dL (2.5-4.5)
--- NOTE | 2016-08-17 07:36 | CP.CCUPN ---
<Kacie Garcia - Last Filed: 08/17/16 13:59> CCU Subjective - Physician Review Subjective (Free Text): 08/17/16 13:59 Patient seen and examined at bedside. Patient was on sedation vacation and then extubated this AM and placed on ventimask which he tolerated and now on NC 3L satting well. Patient is a little drowsy and has a sore throat s/p intubation but responding to ROS well and communicating with family. Patient was able to eat some jello this AM. He denied any chest pain, palpitations, SOB, cough, abd pain, nausea, vomiting, bowel/bladder complaints, pain in his legs. CCU Objective - Vital Signs / Intake & Output Vital Signs (Last 4 hours): Vital Signs Temp Pulse Resp BP Pulse Ox 08/17/16 06:00 97 H 16 100 08/17/16 05:38 97/59 L 08/17/16 05:00 97 H 21 100 08/17/16 04:37 102/65 08/17/16 04:00 97.7 F 94 H 11 L 100 08/17/16 03:38 88/55 L Intake and Output (Last 8hrs): Intake & Output 08/16/16 08/17/16 08/17/16 22:59 06:59 14:59 Intake Total 447.5 1325.4 Balance 447.5 1325.4 Weight 209 lb 11.2 oz 211 lb 8 oz Intake: IV 140 160 Intake, IV Amount 107.5 1165.4 Right Antecubital 79 1079.7 Right Hand 28.5 85.7 Oral 200 Other: # Bowel Movements 0 0 - Physical Exam Head: Positive for: Atraumatic, Normocephalic Pupils: Positive for: PERRL Extroacular Muscles: Positive for: EOMI Conjunctiva: Positive for: Normal. Negative for: Injected, Icteric Mouth: Positive for: Moist Mucous Membranes Nose (External): Positive for: Atraumatic, Other (NC in place 3L) Neck: Negative for: JVD Respiratory/Chest: Negative for: Respiratory Distress, Accessory Muscle Use, Wheezes, Rales, Rhonchi, Tachypneic Cardiovascular: Positive for: Normal S1, S2, Tachycardic. Negative for: Irregular Rhythm Abdomen: Positive for: Normal Bowel Sounds. Negative for: Tenderness, Distention, Peritoneal Signs Upper Extremity: Positive for: Normal Inspection. Negative for: Cyanosis, Edema Lower Extremity: Positive for: Normal Inspection. Negative for: Edema Skin: Positive for: Warm, Dry, Normal Color Psychiatric: Positive for: Alert, Oriented x 3 - Medications Active Medications: Active Medications Generic Name Dose Route Start Last Admin Trade Name Freq PRN Reason Stop Dose Admin Aspirin 81 mg 08/16/16 15:15 08/16/16 15:46 Aspirin Chewable PO 81 mg DAILY RAYNE Administration Clopidogrel Bisulfate 75 mg 08/16/16 15:15 08/16/16 15:46 Plavix PO 75 mg DAILY RAYNE Administration Famotidine 20 mg 08/16/16 14:45 08/16/16 15:45 Pepcid IVP 20 mg DAILY RAYNE Administration Heparin Sodium (Porcine) 5,000 units 08/16/16 22:00 08/16/16 22:08 Heparin SC 5,000 units Q12 RAYNE Administration Propofol 1,000 mg in 100 mls @ 4.972 mls/hr 08/16/16 11:16 08/17/16 02:31 Diprivan IV 10 mcg/kg/min .Q20H7M PRN 5.525 mls/hr TITRATE PER MD ORDER Administration Protocol 9 MCG/KG/MIN Fentanyl Citrate 2,500 mcg/ 250 mls @ 28.53 mls/hr 08/16/16 21:30 08/17/16 07 :23 Sodium Chloride IV Not Given .[id number] RAYNE Protocol 3 MCG/KG/HR Insulin Aspart 0 unit 08/16/16 18:00 08/17/16 06:00 Novolog SC Not Given Q6 [facility] Protocol Metoprolol Tartrate 12.5 mg 08/16/16 18:00 08/16/16 17:30 Lopressor PO 12.5 mg BID RAYNE Administration Rosuvastatin Calcium 10 mg 08/16/16 22:00 08/16/16 22:09 Crestor PO 10 mg HS RAYNE Administration - Patient Studies Lab Studies: Microbiology Studies 08/16/16 14:38 Gram Stain - Final Trachasp Lab Studies 08/17/16 08/17/16 08/17/16 Range/Units 06:03 06:03 06:03 WBC 6.9 (4.8-10.8) K/uL RBC 3.65 L (4.40-5.90) Mil/uL Hgb 8.9 L (12.0-18.0) g/dL Hct 28.9 L (35.0-51.0) % MCV 79.1 L (80.0-94.0) fL MCH 24.4 L (27.0-31.0) pg MCHC 30.8 L (33.0-37.0) g/dL RDW 20.6 H (11.5-14.5) % Plt Count 154 (130-400) K/uL MPV 9.9 (7.2-11.7) fL Neut % (Auto) 76.1 H (50.0-75.0) % Lymph % (Auto) 14.7 L (20.0-40.0) % [place] % (Auto) 5.8 (0.0-10.0) % Eos % (Auto) 2.2 (0.0-4.0) % Baso % (Auto) 1.2 (0.0-2.0) % Neut # 5.2 (1.8-7.0) K/uL Lymph # 1.0 (1.0-4.3) K/uL [place] # 0.4 (0.0-0.8) K/uL Eos # 0.2 (0.0-0.7) K/uL Baso # 0.1 (0.0-0.2) K/uL APTT 29 D (21-34) SECONDS D-Dimer, Quantitative (0-243) ng/mlDDU Puncture Site pCO2 (35-45) mm/Hg pO2 (80-100) mm/Hg HCO3 (21-28) mmol/L ABG pH (7.35-7.45) ABG Total CO2 (22-28) mmol/L ABG O2 Saturation (95-98) % ABG Base Excess (-2.0-3.0) mmol/L ABG Hemoglobin (11.7-17.4) g/dL ABG Carboxyhemoglobin (0.5-1.5) % POC ABG HHb (Measured) (0.0-5.0) % ABG Methemoglobin (0.0-3.0) % Alberto Test ABG Potassium (3.6-5.2) mmol/L A-a O2 Difference mm/Hg Respiratory Index Hgb O2 Saturation (95.0-98.0) % Sodium 134 (132-148) mmol/l Chloride 95 L (98-107) mmol/L Glucose (75-110) mg/dl Lactate (0.7-2.1) mmol/L Mechanical Rate FiO2 % Tidal Volume PEEP Potassium 4.0 (3.6-5.2) mmol/L Carbon Dioxide 23 (22-30) mmol/L Anion Gap 20 (10-20) BUN 42 H (9-20) mg/dL Creatinine 9.4 H* (0.8-1.5) MG/DL Est GFR ( Amer) 7 Est GFR (Non-Af Amer) 6 POC Glucose (mg/dL) (65-110) mg/dL Random Glucose 64 L (75-110) mg/dL Hemoglobin A1c (4.2-6.5) % Calcium 8.4 L (8.6-10.4) mg/dl Phosphorus 5.7 H (2.5-4.5) mg/dL Magnesium 2.1 (1.6-2.3) mg/dL Total Bilirubin 0.6 (0.2-1.3) mg/dL AST 25 (17-59) U/L ALT 24 (21-72) U/L Alkaline Phosphatase 275 H D (38-126) U/L Total Creatine Kinase (55-170) U/L CK-MB (Mass) (0.0-3.38) ng/mL Troponin I, Quant (0.00-0.120) ng/mL Total Protein 5.6 L (6.3-8.3) g/dL Albumin 3.0 L (3.5-5.0) g/dL Globulin 2.7 (2.2-3.9) gm/dL Albumin/Globulin Ratio 1.1 (1.0-2.1) Triglycerides 700 H (0-149) mg/dL Cholesterol 108 (0-199) mg/dL LDL Cholesterol Direct 46 (0-129) mg/dL HDL Cholesterol 25 L (30-70) mg/dL Arterial Blood Potassium (3.6-5.2) mmol/L 08/17/16 08/17/16 08/16/16 Range/Units 05:29 04:35 23:27 WBC (4.8-10.8) K/uL RBC (4.40-5.90) Mil/uL Hgb (12.0-18.0) g/dL Hct (35.0-51.0) % MCV (80.0-94.0) fL MCH (27.0-31.0) pg MCHC (33.0-37.0) g/dL RDW (11.5-14.5) % Plt Count (130-400) K/uL MPV (7.2-11.7) fL Neut % (Auto) (50.0-75.0) % Lymph % (Auto) (20.0-40.0) % [place] % (Auto) (0.0-10.0) % Eos % (Auto) (0.0-4.0) % Baso % (Auto) (0.0-2.0) % Neut # (1.8-7.0) K/uL Lymph # (1.0-4.3) K/uL [place] # (0.0-0.8) K/uL Eos # (0.0-0.7) K/uL Baso # (0.0-0.2) K/uL APTT (21-34) SECONDS D-Dimer, Quantitative (0-243) ng/mlDDU Puncture Site Lb pCO2 43 (35-45) mm/Hg pO2 119 H (80-100) mm/Hg HCO3 26.7 (21-28) mmol/L ABG pH 7.41 (7.35-7.45) ABG Total CO2 28.6 H (22-28) mmol/L ABG O2 Saturation 98.6 H (95-98) % ABG Base Excess 2.3 (-2.0-3.0) mmol/L ABG Hemoglobin 13.0 (11.7-17.4) g/dL ABG Carboxyhemoglobin 1.6 H (0.5-1.5) % POC ABG HHb (Measured) 1.4 (0.0-5.0) % ABG Methemoglobin 0.9 (0.0-3.0) % Alberto Test Na ABG Potassium (3.6-5.2) mmol/L A-a O2 Difference 112.0 mm/Hg Respiratory Index 0.9 Hgb O2 Saturation 96.1 (95.0-98.0) % Sodium (132-148) mmol/l Chloride (98-107) mmol/L Glucose (75-110) mg/dl Lactate (0.7-2.1) mmol/L Mechanical Rate 12 FiO2 40.0 % Tidal Volume 500 PEEP 5 Potassium (3.6-5.2) mmol/L Carbon Dioxide (22-30) mmol/L Anion Gap (10-20) BUN (9-20) mg/dL Creatinine (0.8-1.5) MG/DL Est GFR ( Amer) Est GFR (Non-Af Amer) POC Glucose (mg/dL) 88 86 (65-110) mg/dL Random Glucose (75-110) mg/dL Hemoglobin A1c (4.2-6.5) % Calcium (8.6-10.4) mg/dl Phosphorus (2.5-4.5) mg/dL Magnesium (1.6-2.3) mg/dL Total Bilirubin (0.2-1.3) mg/dL AST (17-59) U/L ALT (21-72) U/L Alkaline Phosphatase (38-126) U/L Total Creatine Kinase (55-170) U/L CK-MB (Mass) (0.0-3.38) ng/mL Troponin I, Quant (0.00-0.120) ng/mL Total Protein (6.3-8.3) g/dL Albumin (3.5-5.0) g/dL Globulin (2.2-3.9) gm/dL Albumin/Globulin Ratio (1.0-2.1) Triglycerides (0-149) mg/dL Cholesterol (0-199) mg/dL LDL Cholesterol Direct (0-129) mg/dL HDL Cholesterol (30-70) mg/dL Arterial Blood Potassium (3.6-5.2) mmol/L 08/16/16 08/16/16 08/16/16 Range/Units 17:40 15:30 15:30 WBC (4.8-10.8) K/uL RBC (4.40-5.90) Mil/uL Hgb (12.0-18.0) g/dL Hct (35.0-51.0) % MCV (80.0-94.0) fL MCH (27.0-31.0) pg MCHC (33.0-37.0) g/dL RDW (11.5-14.5) % Plt Count (130-400) K/uL MPV (7.2-11.7) fL Neut % (Auto) (50.0-75.0) % Lymph % (Auto) (20.0-40.0) % [place] % (Auto) (0.0-10.0) % Eos % (Auto) (0.0-4.0) % Baso % (Auto) (0.0-2.0) % Neut # (1.8-7.0) K/uL Lymph # (1.0-4.3) K/uL [place] # (0.0-0.8) K/uL Eos # (0.0-0.7) K/uL Baso # (0.0-0.2) K/uL APTT (21-34) SECONDS D-Dimer, Quantitative 936 H (0-243) ng/mlDDU Puncture Site pCO2 (35-45) mm/Hg pO2 (80-100) mm/Hg HCO3 (21-28) mmol/L ABG pH (7.35-7.45) ABG Total CO2 (22-28) mmol/L ABG O2 Saturation (95-98) % ABG Base Excess (-2.0-3.0) mmol/L ABG Hemoglobin (11.7-17.4) g/dL ABG Carboxyhemoglobin (0.5-1.5) % POC ABG HHb (Measured) (0.0-5.0) % ABG Methemoglobin (0.0-3.0) % Alberto Test ABG Potassium (3.6-5.2) mmol/L A-a O2 Difference mm/Hg Respiratory Index Hgb O2 Saturation (95.0-98.0) % Sodium (132-148) mmol/l Chloride (98-107) mmol/L Glucose (75-110) mg/dl Lactate (0.7-2.1) mmol/L Mechanical Rate FiO2 % Tidal Volume PEEP Potassium (3.6-5.2) mmol/L Carbon Dioxide (22-30) mmol/L Anion Gap (10-20) BUN (9-20) mg/dL Creatinine (0.8-1.5) MG/DL Est GFR ( Amer) Est GFR (Non-Af Amer) POC Glucose (mg/dL) 89 (65-110) mg/dL Random Glucose (75-110) mg/dL Hemoglobin A1c 5.4 (4.2-6.5) % Calcium (8.6-10.4) mg/dl Phosphorus (2.5-4.5) mg/dL Magnesium (1.6-2.3) mg/dL Total Bilirubin (0.2-1.3) mg/dL AST (17-59) U/L ALT (21-72) U/L Alkaline Phosphatase (38-126) U/L Total Creatine Kinase (55-170) U/L CK-MB (Mass) (0.0-3.38) ng/mL Troponin I, Quant (0.00-0.120) ng/mL Total Protein (6.3-8.3) g/dL Albumin (3.5-5.0) g/dL Globulin (2.2-3.9) gm/dL Albumin/Globulin Ratio (1.0-2.1) Triglycerides (0-149) mg/dL Cholesterol (0-199) mg/dL LDL Cholesterol Direct (0-129) mg/dL HDL Cholesterol (30-70) mg/dL Arterial Blood Potassium (3.6-5.2) mmol/L 08/16/16 08/16/16 Range/Units 15:30 14:59 WBC (4.8-10.8) K/uL RBC (4.40-5.90) Mil/uL Hgb (12.0-18.0) g/dL Hct (35.0-51.0) % MCV (80.0-94.0) fL MCH (27.0-31.0) pg MCHC (33.0-37.0) g/dL RDW (11.5-14.5) % Plt Count (130-400) K/uL MPV (7.2-11.7) fL Neut % (Auto) (50.0-75.0) % Lymph % (Auto) (20.0-40.0) % [place] % (Auto) (0.0-10.0) % Eos % (Auto) (0.0-4.0) % Baso % (Auto) (0.0-2.0) % Neut # (1.8-7.0) K/uL Lymph # (1.0-4.3) K/uL [place] # (0.0-0.8) K/uL Eos # (0.0-0.7) K/uL Baso # (0.0-0.2) K/uL APTT (21-34) SECONDS D-Dimer, Quantitative (0-243) ng/mlDDU Puncture Site Lr pCO2 36 (35-45) mm/Hg pO2 421 H (80-100) mm/Hg HCO3 28.8 H (21-28) mmol/L ABG pH 7.50 H (7.35-7.45) ABG Total CO2 29.2 H (22-28) mmol/L ABG O2 Saturation 99.3 H (95-98) % ABG Base Excess 4.9 H (-2.0-3.0) mmol/L ABG Hemoglobin (11.7-17.4) g/dL ABG Carboxyhemoglobin (0.5-1.5) % POC ABG HHb (Measured) (0.0-5.0) % ABG Methemoglobin (0.0-3.0) % Alebrto Test Unable ABG Potassium 3.1 L (3.6-5.2) mmol/L A-a O2 Difference 247.0 mm/Hg Respiratory Index 0.6 Hgb O2 Saturation (95.0-98.0) % Sodium 140.0 (132-148) mmol/l Chloride 106.0 (98-107) mmol/L Glucose 77 (75-110) mg/dl Lactate 1.4 (0.7-2.1) mmol/L Mechanical Rate 14 FiO2 100.0 % Tidal Volume 550 PEEP 5 Potassium (3.6-5.2) mmol/L Carbon Dioxide (22-30) mmol/L Anion Gap (10-20) BUN (9-20) mg/dL Creatinine (0.8-1.5) MG/DL Est GFR ( Amer) Est GFR (Non-Af Amer) POC Glucose (mg/dL) (65-110) mg/dL Random Glucose (75-110) mg/dL Hemoglobin A1c (4.2-6.5) % Calcium (8.6-10.4) mg/dl Phosphorus 4.9 H (2.5-4.5) mg/dL Magnesium 2.3 (1.6-2.3) mg/dL Total Bilirubin (0.2-1.3) mg/dL AST (17-59) U/L ALT (21-72) U/L Alkaline Phosphatase (38-126) U/L Total Creatine Kinase 439 H (55-170) U/L CK-MB (Mass) 5.80 H (0.0-3.38) ng/mL Troponin I, Quant 0.3480 H* (0.00-0.120) ng/mL Total Protein (6.3-8.3) g/dL Albumin (3.5-5.0) g/dL Globulin (2.2-3.9) gm/dL Albumin/Globulin Ratio (1.0-2.1) Triglycerides (0-149) mg/dL Cholesterol (0-199) mg/dL LDL Cholesterol Direct (0-129) mg/dL HDL Cholesterol (30-70) mg/dL Arterial Blood Potassium 3.1 L (3.6-5.2) mmol/L Laboratory Results - last 24 hr 08/16/16 08/16/16 08/16/16 14:59 15:30 15:30 WBC RBC Hgb Hct MCV MCH MCHC RDW Plt Count MPV Neut % (Auto) Lymph % (Auto) [place] % (Auto) Eos % (Auto) Baso % (Auto) Neut # Lymph # [place] # Eos # Baso # APTT D-Dimer, Quantitative Puncture Site Lr pCO2 36 pO2 421 H HCO3 28.8 H ABG pH 7.50 H ABG Total CO2 29.2 H ABG O2 Saturation 99.3 H ABG Base Excess 4.9 H ABG Hemoglobin ABG Carboxyhemoglobin POC ABG HHb (Measured) ABG Methemoglobin Alberto Test Unable ABG Potassium 3.1 L A-a O2 Difference 247.0 Respiratory Index 0.6 Hgb O2 Saturation Sodium 140.0 Chloride 106.0 Glucose 77 Lactate 1.4 Mechanical Rate 14 FiO2 100.0 Tidal Volume 550 PEEP 5 Potassium Carbon Dioxide Anion Gap BUN Creatinine Est GFR ( Amer) Est GFR (Non-Af Amer) POC Glucose (mg/dL) Random Glucose Hemoglobin A1c 5.4 Calcium Phosphorus 4.9 H Magnesium 2.3 Total Bilirubin AST ALT Alkaline Phosphatase Total Creatine Kinase 439 H CK-MB (Mass) 5.80 H Troponin I, Quant 0.3480 H* Total Protein Albumin Globulin Albumin/Globulin Ratio Triglycerides Cholesterol LDL Cholesterol Direct HDL Cholesterol Arterial Blood Potassium 3.1 L 08/16/16 08/16/16 08/16/16 15:30 17:40 23:27 WBC RBC Hgb Hct MCV MCH MCHC RDW Plt Count MPV Neut % (Auto) Lymph % (Auto) [place] % (Auto) Eos % (Auto) Baso % (Auto) Neut # Lymph # [place] # Eos # Baso # APTT D-Dimer, Quantitative 936 H Puncture Site pCO2 pO2 HCO3 ABG pH ABG Total CO2 ABG O2 Saturation ABG Base Excess ABG Hemoglobin ABG Carboxyhemoglobin POC ABG HHb (Measured) ABG Methemoglobin Alberto Test ABG Potassium A-a O2 Difference Respiratory Index Hgb O2 Saturation Sodium Chloride Glucose Lactate Mechanical Rate FiO2 Tidal Volume PEEP Potassium Carbon Dioxide Anion Gap BUN Creatinine Est GFR ( Amer) Est GFR (Non-Af Amer) POC Glucose (mg/dL) 89 86 Random Glucose Hemoglobin A1c Calcium Phosphorus Magnesium Total Bilirubin AST ALT Alkaline Phosphatase Total Creatine Kinase CK-MB (Mass) Troponin I, Quant Total Protein Albumin Globulin Albumin/Globulin Ratio Triglycerides Cholesterol LDL Cholesterol Direct HDL Cholesterol Arterial Blood Potassium 08/17/16 08/17/16 08/17/16 04:35 05:29 06:03 WBC RBC Hgb Hct MCV MCH MCHC RDW Plt Count MPV Neut % (Auto) Lymph % (Auto) [place] % (Auto) Eos % (Auto) Baso % (Auto) Neut # Lymph # [place] # Eos # Baso # APTT D-Dimer, Quantitative Puncture Site Lb pCO2 43 pO2 119 H HCO3 26.7 ABG pH 7.41 ABG Total CO2 28.6 H ABG O2 Saturation 98.6 H ABG Base Excess 2.3 ABG Hemoglobin 13.0 ABG Carboxyhemoglobin 1.6 H POC ABG HHb (Measured) 1.4 ABG Methemoglobin 0.9 Alberto Test Na ABG Potassium A-a O2 Difference 112.0 Respiratory Index 0.9 Hgb O2 Saturation 96.1 Sodium 134 Chloride 95 L Glucose Lactate Mechanical Rate 12 FiO2 40.0 Tidal Volume 500 PEEP 5 Potassium 4.0 Carbon Dioxide 23 Anion Gap 20 BUN 42 H Creatinine 9.4 H* Est GFR ( Amer) 7 Est GFR (Non-Af Amer) 6 POC Glucose (mg/dL) 88 Random Glucose 64 L Hemoglobin A1c Calcium 8.4 L Phosphorus 5.7 H Magnesium 2.1 Total Bilirubin 0.6 AST 25 ALT 24 Alkaline Phosphatase 275 H D Total Creatine Kinase CK-MB (Mass) Troponin I, Quant Total Protein 5.6 L Albumin 3.0 L Globulin 2.7 Albumin/Globulin Ratio 1.1 Triglycerides 700 H Cholesterol 108 LDL Cholesterol Direct 46 HDL Cholesterol 25 L Arterial Blood Potassium 08/17/16 08/17/16 06:03 06:03 WBC 6.9 RBC 3.65 L Hgb 8.9 L Hct 28.9 L MCV 79.1 L MCH 24.4 L MCHC 30.8 L RDW 20.6 H Plt Count 154 MPV 9.9 Neut % (Auto) 76.1 H Lymph % (Auto) 14.7 L [place] % (Auto) 5.8 Eos % (Auto) 2.2 Baso % (Auto) 1.2 Neut # 5.2 Lymph # 1.0 [place] # 0.4 Eos # 0.2 Baso # 0.1 APTT 29 D D-Dimer, Quantitative Puncture Site pCO2 pO2 HCO3 ABG pH ABG Total CO2 ABG O2 Saturation ABG Base Excess ABG Hemoglobin ABG Carboxyhemoglobin POC ABG HHb (Measured) ABG Methemoglobin Alberto Test ABG Potassium A-a O2 Difference Respiratory Index Hgb O2 Saturation Sodium Chloride Glucose Lactate Mechanical Rate FiO2 Tidal Volume PEEP Potassium Carbon Dioxide Anion Gap BUN Creatinine Est GFR ( Amer) Est GFR (Non-Af Amer) POC Glucose (mg/dL) Random Glucose Hemoglobin A1c Calcium Phosphorus Magnesium Total Bilirubin AST ALT Alkaline Phosphatase Total Creatine Kinase CK-MB (Mass) Troponin I, Quant Total Protein Albumin Globulin Albumin/Globulin Ratio Triglycerides Cholesterol LDL Cholesterol Direct HDL Cholesterol Arterial Blood Potassium EKG/Cardiology Studies: Cardiology / EKG Studies 08/16/16 16:00 EKG [ELECTROCARDIOGRAM] Routine Comment: Mode Of Transportation: Reason For Exam: s/p cardiac arrest Fingerstick Blood Sugar Results: 88 Review of Systems - Cardiovascular Cardiovascular: As Per HPI. absent: Chest Pain, Dyspnea, Palpitations - Respiratory Respiratory: As Per HPI. absent: Cough - Gastrointestinal Gastrointestinal: As Per HPI. absent: Abdominal Pain, Constipation, Diarrhea, Nausea, Vomiting - Musculoskeletal Musculoskeletal: As Par HPI. absent: Numbness - Integumentary Integumentary: As Per HPI. absent: Rash - Neurological Neurological: As Per HPI, Other (drowsy) Assessment/Plan - Assessment and Plan (Free Text) Assessment: 41 year old male PMHx ESRD on HD TTS, HTN, secondary hyperparathyroidism presented s/p cardiac arrest at HD center Plan: Neuro -patient had 2 seizures in ER and was given Ativan 2mg x 2 in ER -likely hypoxic seizure -f/u EEG -CT head: unremarkable -Thiamine 100mg iv q8 -neuro following Dr. Negrete Cardiovascular -Patient s/p cardiac arrest and 1 defibrillation in HD center -lipid panel TG 700 Chol 108 LDL 46 HDL 25 -troponin 0.2410 -f/u repeat PATRICK with EKG -proBNP 99921 -Echo 08/17: LV severely dilated; normal LV thickness; EF 30-35% extensive akinesia of septal, inferior, inferoapical, apex; CAD; no mural clots seen; Transmitral flow pattern is Grade II pseudonormal filling dynamics; LA pressure mod elevated; LA volume index is severely increased; RV systolic fxn mildly reduced; LA severely dilated; Sclerotic mitral leaflets; calcified posterior mitral leaflet; MR mod to severe; Pulm systolic pressures is underestimated -D dimer +936 -CTA to be done before patient gets HD tomorrow 08/18 -f/u venous dopplers b/l -ASA 81mg po daily -Plavix 75mg po daily -Crestor 10mg po hs -Metoprolol tartate 12.5mg po bid -Dr Haynes consulted -Dr Maza consulted Respiratory -extubated this AM -on NC 3L -CXR: mild venous congestion; patchy L basilar airspace opacity; lucency along R heart border which may represent artifact; R hilar prominence; persistent R paratracheal airspace opacity may represent prominent vascularture; circumferential pleural thickening in R hemithorax GI -no acute issues Renal -ESRD on HD TTS -HD tomorrow 08/18 -Dr Bunch consulted Heme -Anemia of chronic disease -H&H stable Endo -HgbA1c 5.7 -no acute issues ID -f/u blood culture -sputum culture: no growth DVT ppx: Heparin 5000u sc q12; SCD c/i for DVT suspection GI ppx: Pepcid 20mg ivp daily Code status: full code Case discussed with Dr. Hilario Garcia PGY2 <Neo Rich - Last Filed: 08/17/16 16:27> CCU Objective - Vital Signs / Intake & Output Intake and Output (Last 8hrs): Intake & Output 08/17/16 08/17/16 08/17/16 06:59 14:59 22:59 Intake Total 1395.4 104.3 Balance 1395.4 104.3 Weight 211 lb 8 oz Intake: IV 230 43 Intake, IV Amount 1165.4 61.3 Right Antecubital 1079.7 51.7 Right Hand 85.7 9.6 Other: # Bowel Movements 0 0 - Medications Active Medications: Active Medications Generic Name Dose Route Start Last Admin Trade Name Freq PRN Reason Stop Dose Admin Aspirin 81 mg 08/16/16 15:15 08/17/16 09:49 Aspirin Chewable PO 81 mg DAILY RAYNE Administration Calcium Acetate 1,334 mg 08/17/16 14:00 08/17/16 14:00 Phoslo PO Not Given TIDCC RAYNE Clopidogrel Bisulfate 75 mg 08/16/16 15:15 08/17/16 09:49 Plavix PO 75 mg DAILY RAYNE Administration Epoetin Imtiaz 10,000 unit 08/18/16 10:00 Procrit IV TTS RAYNE Famotidine 20 mg 08/16/16 14:45 08/17/16 09:49 Pepcid IVP 20 mg DAILY RAYNE Administration Heparin Sodium (Porcine) 5,000 units 08/16/16 22:00 08/17/16 09:48 Heparin SC 5,000 units Q12 RAYNE Administration Metoprolol Tartrate 12.5 mg 08/17/16 10:00 08/17/16 10:09 Lopressor PO Not Given Q12 RANYE Rosuvastatin Calcium 10 mg 08/16/16 22:00 08/16/16 22:09 Crestor PO 10 mg HS RAYNE Administration Thiamine HCl 100 mg 08/17/16 12:00 08/17/16 12:41 Vitamin B1 Inj IV 100 mg Q8H RAYNE Administration - Patient Studies Lab Studies: Microbiology Studies 08/16/16 15:20 Blood Culture - Preliminary Blood-Venous NO GROWTH AFTER 24 HOURS 08/16/16 14:50 Blood Culture - Preliminary Blood-Venous NO GROWTH AFTER 24 HOURS 08/16/16 14:38 Gram Stain - Final Trachasp Lab Studies 08/17/16 08/17/16 08/17/16 Range/Units 12:46 06:03 06:03 WBC 6.9 (4.8-10.8) K/uL RBC 3.65 L (4.40-5.90) Mil/uL Hgb 8.9 L (12.0-18.0) g/dL Hct 28.9 L (35.0-51.0) % MCV 79.1 L (80.0-94.0) fL MCH 24.4 L (27.0-31.0) pg MCHC 30.8 L (33.0-37.0) g/dL RDW 20.6 H (11.5-14.5) % Plt Count 154 (130-400) K/uL MPV 9.9 (7.2-11.7) fL Neut % (Auto) 76.1 H (50.0-75.0) % Lymph % (Auto) 14.7 L (20.0-40.0) % [place] % (Auto) 5.8 (0.0-10.0) % Eos % (Auto) 2.2 (0.0-4.0) % Baso % (Auto) 1.2 (0.0-2.0) % Neut # 5.2 (1.8-7.0) K/uL Lymph # 1.0 (1.0-4.3) K/uL [place] # 0.4 (0.0-0.8) K/uL Eos # 0.2 (0.0-0.7) K/uL Baso # 0.1 (0.0-0.2) K/uL APTT 29 D (21-34) SECONDS Puncture Site pCO2 (35-45) mm/Hg pO2 (80-100) mm/Hg HCO3 (21-28) mmol/L ABG pH (7.35-7.45) ABG Total CO2 (22-28) mmol/L ABG O2 Saturation (95-98) % ABG Base Excess (-2.0-3.0) mmol/L ABG Hemoglobin (11.7-17.4) g/dL ABG Carboxyhemoglobin (0.5-1.5) % POC ABG HHb (Measured) (0.0-5.0) % ABG Methemoglobin (0.0-3.0) % Alberto Test A-a O2 Difference mm/Hg Respiratory Index Hgb O2 Saturation (95.0-98.0) % Mechanical Rate FiO2 % Tidal Volume PEEP Sodium (132-148) mmol/L Potassium (3.6-5.2) mmol/L Chloride (98-107) mmol/L Carbon Dioxide (22-30) mmol/L Anion Gap (10-20) BUN (9-20) mg/dL Creatinine (0.8-1.5) MG/DL Est GFR ( Amer) Est GFR (Non-Af Amer) POC Glucose (mg/dL) 74 (65-110) mg/dL Random Glucose (75-110) mg/dL Hemoglobin A1c (4.2-6.5) % Calcium (8.6-10.4) mg/dl Phosphorus (2.5-4.5) mg/dL Magnesium (1.6-2.3) mg/dL Total Bilirubin (0.2-1.3) mg/dL AST (17-59) U/L ALT (21-72) U/L Alkaline Phosphatase (38-126) U/L Total Creatine Kinase (55-170) U/L CK-MB (Mass) (0.0-3.38) ng/mL Troponin I, Quant (0.00-0.120) ng/mL Total Protein (6.3-8.3) g/dL Albumin (3.5-5.0) g/dL Globulin (2.2-3.9) gm/dL Albumin/Globulin Ratio (1.0-2.1) Triglycerides (0-149) mg/dL Cholesterol (0-199) mg/dL LDL Cholesterol Direct (0-129) mg/dL HDL Cholesterol (30-70) mg/dL 08/17/16 08/17/16 08/17/16 Range/Units 06:03 06:03 05:29 WBC (4.8-10.8) K/uL RBC (4.40-5.90) Mil/uL Hgb (12.0-18.0) g/dL Hct (35.0-51.0) % MCV (80.0-94.0) fL MCH (27.0-31.0) pg MCHC (33.0-37.0) g/dL RDW (11.5-14.5) % Plt Count (130-400) K/uL MPV (7.2-11.7) fL Neut % (Auto) (50.0-75.0) % Lymph % (Auto) (20.0-40.0) % [place] % (Auto) (0.0-10.0) % Eos % (Auto) (0.0-4.0) % Baso % (Auto) (0.0-2.0) % Neut # (1.8-7.0) K/uL Lymph # (1.0-4.3) K/uL [place] # (0.0-0.8) K/uL Eos # (0.0-0.7) K/uL Baso # (0.0-0.2) K/uL APTT (21-34) SECONDS Puncture Site pCO2 (35-45) mm/Hg pO2 (80-100) mm/Hg HCO3 (21-28) mmol/L ABG pH (7.35-7.45) ABG Total CO2 (22-28) mmol/L ABG O2 Saturation (95-98) % ABG Base Excess (-2.0-3.0) mmol/L ABG Hemoglobin (11.7-17.4) g/dL ABG Carboxyhemoglobin (0.5-1.5) % POC ABG HHb (Measured) (0.0-5.0) % ABG Methemoglobin (0.0-3.0) % Alberto Test A-a O2 Difference mm/Hg Respiratory Index Hgb O2 Saturation (95.0-98.0) % Mechanical Rate FiO2 % Tidal Volume PEEP Sodium 134 (132-148) mmol/L Potassium 4.0 (3.6-5.2) mmol/L Chloride 95 L (98-107) mmol/L Carbon Dioxide 23 (22-30) mmol/L Anion Gap 20 (10-20) BUN 42 H (9-20) mg/dL Creatinine 9.4 H* (0.8-1.5) MG/DL Est GFR ( Amer) 7 Est GFR (Non-Af Amer) 6 POC Glucose (mg/dL) 88 (65-110) mg/dL Random Glucose 64 L (75-110) mg/dL Hemoglobin A1c 5.7 (4.2-6.5) % Calcium 8.4 L (8.6-10.4) mg/dl Phosphorus 5.7 H (2.5-4.5) mg/dL Magnesium 2.1 (1.6-2.3) mg/dL Total Bilirubin 0.6 (0.2-1.3) mg/dL AST 25 (17-59) U/L ALT 24 (21-72) U/L Alkaline Phosphatase 275 H D (38-126) U/L Total Creatine Kinase (55-170) U/L CK-MB (Mass) (0.0-3.38) ng/mL Troponin I, Quant (0.00-0.120) ng/mL Total Protein 5.6 L (6.3-8.3) g/dL Albumin 3.0 L (3.5-5.0) g/dL Globulin 2.7 (2.2-3.9) gm/dL Albumin/Globulin Ratio 1.1 (1.0-2.1) Triglycerides 700 H (0-149) mg/dL Cholesterol 108 (0-199) mg/dL LDL Cholesterol Direct 46 (0-129) mg/dL HDL Cholesterol 25 L (30-70) mg/dL 08/17/16 08/16/16 08/16/16 Range/Units 04:35 23:27 17:40 WBC (4.8-10.8) K/uL RBC (4.40-5.90) Mil/uL Hgb (12.0-18.0) g/dL Hct (35.0-51.0) % MCV (80.0-94.0) fL MCH (27.0-31.0) pg MCHC (33.0-37.0) g/dL RDW (11.5-14.5) % Plt Count (130-400) K/uL MPV (7.2-11.7) fL Neut % (Auto) (50.0-75.0) % Lymph % (Auto) (20.0-40.0) % [place] % (Auto) (0.0-10.0) % Eos % (Auto) (0.0-4.0) % Baso % (Auto) (0.0-2.0) % Neut # (1.8-7.0) K/uL Lymph # (1.0-4.3) K/uL [place] # (0.0-0.8) K/uL Eos # (0.0-0.7) K/uL Baso # (0.0-0.2) K/uL APTT (21-34) SECONDS Puncture Site Lb pCO2 43 (35-45) mm/Hg pO2 119 H (80-100) mm/Hg HCO3 26.7 (21-28) mmol/L ABG pH 7.41 (7.35-7.45) ABG Total CO2 28.6 H (22-28) mmol/L ABG O2 Saturation 98.6 H (95-98) % ABG Base Excess 2.3 (-2.0-3.0) mmol/L ABG Hemoglobin 13.0 (11.7-17.4) g/dL ABG Carboxyhemoglobin 1.6 H (0.5-1.5) % POC ABG HHb (Measured) 1.4 (0.0-5.0) % ABG Methemoglobin 0.9 (0.0-3.0) % Alberto Test Na A-a O2 Difference 112.0 mm/Hg Respiratory Index 0.9 Hgb O2 Saturation 96.1 (95.0-98.0) % Mechanical Rate 12 FiO2 40.0 % Tidal Volume 500 PEEP 5 Sodium (132-148) mmol/L Potassium (3.6-5.2) mmol/L Chloride (98-107) mmol/L Carbon Dioxide (22-30) mmol/L Anion Gap (10-20) BUN (9-20) mg/dL Creatinine (0.8-1.5) MG/DL Est GFR ( Amer) Est GFR (Non-Af Amer) POC Glucose (mg/dL) 86 89 (65-110) mg/dL Random Glucose (75-110) mg/dL Hemoglobin A1c (4.2-6.5) % Calcium (8.6-10.4) mg/dl Phosphorus (2.5-4.5) mg/dL Magnesium (1.6-2.3) mg/dL Total Bilirubin (0.2-1.3) mg/dL AST (17-59) U/L ALT (21-72) U/L Alkaline Phosphatase (38-126) U/L Total Creatine Kinase (55-170) U/L CK-MB (Mass) (0.0-3.38) ng/mL Troponin I, Quant (0.00-0.120) ng/mL Total Protein (6.3-8.3) g/dL Albumin (3.5-5.0) g/dL Globulin (2.2-3.9) gm/dL Albumin/Globulin Ratio (1.0-2.1) Triglycerides (0-149) mg/dL Cholesterol (0-199) mg/dL LDL Cholesterol Direct (0-129) mg/dL HDL Cholesterol (30-70) mg/dL 08/16/16 Range/Units 15:30 WBC (4.8-10.8) K/uL RBC (4.40-5.90) Mil/uL Hgb (12.0-18.0) g/dL Hct (35.0-51.0) % MCV (80.0-94.0) fL MCH (27.0-31.0) pg MCHC (33.0-37.0) g/dL RDW (11.5-14.5) % Plt Count (130-400) K/uL MPV (7.2-11.7) fL Neut % (Auto) (50.0-75.0) % Lymph % (Auto) (20.0-40.0) % [place] % (Auto) (0.0-10.0) % Eos % (Auto) (0.0-4.0) % Baso % (Auto) (0.0-2.0) % Neut # (1.8-7.0) K/uL Lymph # (1.0-4.3) K/uL [place] # (0.0-0.8) K/uL Eos # (0.0-0.7) K/uL Baso # (0.0-0.2) K/uL APTT (21-34) SECONDS Puncture Site pCO2 (35-45) mm/Hg pO2 (80-100) mm/Hg HCO3 (21-28) mmol/L ABG pH (7.35-7.45) ABG Total CO2 (22-28) mmol/L ABG O2 Saturation (95-98) % ABG Base Excess (-2.0-3.0) mmol/L ABG Hemoglobin (11.7-17.4) g/dL ABG Carboxyhemoglobin (0.5-1.5) % POC ABG HHb (Measured) (0.0-5.0) % ABG Methemoglobin (0.0-3.0) % Alberto Test A-a O2 Difference mm/Hg Respiratory Index Hgb O2 Saturation (95.0-98.0) % Mechanical Rate FiO2 % Tidal Volume PEEP Sodium (132-148) mmol/L Potassium (3.6-5.2) mmol/L Chloride (98-107) mmol/L Carbon Dioxide (22-30) mmol/L Anion Gap (10-20) BUN (9-20) mg/dL Creatinine (0.8-1.5) MG/DL Est GFR ( Amer) Est GFR (Non-Af Amer) POC Glucose (mg/dL) (65-110) mg/dL Random Glucose (75-110) mg/dL Hemoglobin A1c (4.2-6.5) % Calcium (8.6-10.4) mg/dl Phosphorus 4.9 H (2.5-4.5) mg/dL Magnesium 2.3 (1.6-2.3) mg/dL Total Bilirubin (0.2-1.3) mg/dL AST (17-59) U/L ALT (21-72) U/L Alkaline Phosphatase (38-126) U/L Total Creatine Kinase 439 H (55-170) U/L CK-MB (Mass) 5.80 H (0.0-3.38) ng/mL Troponin I, Quant 0.3480 H* (0.00-0.120) ng/mL Total Protein (6.3-8.3) g/dL Albumin (3.5-5.0) g/dL Globulin (2.2-3.9) gm/dL Albumin/Globulin Ratio (1.0-2.1) Triglycerides (0-149) mg/dL Cholesterol (0-199) mg/dL LDL Cholesterol Direct (0-129) mg/dL HDL Cholesterol (30-70) mg/dL Laboratory Results - last 24 hr 08/16/16 08/16/1608/16/17 15:30 17:40 23:27 WBC RBC Hgb Hct MCV MCH MCHC RDW Plt Count MPV Neut % (Auto) Lymph % (Auto) [place] % (Auto) Eos % (Auto) Baso % (Auto) Neut # Lymph # [place] # Eos # Baso # APTT Puncture Site pCO2 pO2 HCO3 ABG pH ABG Total CO2 ABG O2 Saturation ABG Base Excess ABG Hemoglobin ABG Carboxyhemoglobin POC ABG HHb (Measured) ABG Methemoglobin Alberto Test A-a O2 Difference Respiratory Index Hgb O2 Saturation Mechanical Rate FiO2 Tidal Volume PEEP Sodium Potassium Chloride Carbon Dioxide Anion Gap BUN Creatinine Est GFR ( Amer) Est GFR (Non-Af Amer) POC Glucose (mg/dL) 89 86 Random Glucose Hemoglobin A1c Calcium Phosphorus 4.9 H Magnesium 2.3 Total Bilirubin AST ALT Alkaline Phosphatase Total Creatine Kinase 439 H CK-MB (Mass) 5.80 H Troponin I, Quant 0.3480 H* Total Protein Albumin Globulin Albumin/Globulin Ratio Triglycerides Cholesterol LDL Cholesterol Direct HDL Cholesterol 08/17/16 08/17/16 08/17/16 04:35 05:29 06:03 WBC RBC Hgb Hct MCV MCH MCHC RDW Plt Count MPV Neut % (Auto) Lymph % (Auto) [place] % (Auto) Eos % (Auto) Baso % (Auto) Neut # Lymph # [place] # Eos # Baso # APTT Puncture Site Lb pCO2 43 pO2 119 H HCO3 26.7 ABG pH 7.41 ABG Total CO2 28.6 H ABG O2 Saturation 98.6 H ABG Base Excess 2.3 ABG Hemoglobin 13.0 ABG Carboxyhemoglobin 1.6 H POC ABG HHb (Measured) 1.4 ABG Methemoglobin 0.9 Alberto Test Na A-a O2 Difference 112.0 Respiratory Index 0.9 Hgb O2 Saturation 96.1 Mechanical Rate 12 FiO2 40.0 Tidal Volume 500 PEEP 5 Sodium 134 Potassium 4.0 Chloride 95 L Carbon Dioxide 23 Anion Gap 20 BUN 42 H Creatinine 9.4 H* Est GFR ( Amer) 7 Est GFR (Non-Af Amer) 6 POC Glucose (mg/dL) 88 Random Glucose 64 L Hemoglobin A1c Calcium 8.4 L Phosphorus 5.7 H Magnesium 2.1 Total Bilirubin 0.6 AST 25 ALT 24 Alkaline Phosphatase 275 H D Total Creatine Kinase CK-MB (Mass) Troponin I, Quant Total Protein 5.6 L Albumin 3.0 L Globulin 2.7 Albumin/Globulin Ratio 1.1 Triglycerides 700 H Cholesterol 108 LDL Cholesterol Direct 46 HDL Cholesterol 25 L 08/17/16 08/17/16 08/17/16 06:03 06:03 06:03 WBC 6.9 RBC 3.65 L Hgb 8.9 L Hct 28.9 L MCV 79.1 L MCH 24.4 L MCHC 30.8 L RDW 20.6 H Plt Count 154 MPV 9.9 Neut % (Auto) 76.1 H Lymph % (Auto) 14.7 L [place] % (Auto) 5.8 Eos % (Auto) 2.2 Baso % (Auto) 1.2 Neut # 5.2 Lymph # 1.0 [place] # 0.4 Eos # 0.2 Baso # 0.1 APTT 29 D Puncture Site pCO2 pO2 HCO3 ABG pH ABG Total CO2 ABG O2 Saturation ABG Base Excess ABG Hemoglobin ABG Carboxyhemoglobin POC ABG HHb (Measured) ABG Methemoglobin Alberto Test A-a O2 Difference Respiratory Index Hgb O2 Saturation Mechanical Rate FiO2 Tidal Volume PEEP Sodium Potassium Chloride Carbon Dioxide Anion Gap BUN Creatinine Est GFR ( Amer) Est GFR (Non-Af Amer) POC Glucose (mg/dL) Random Glucose Hemoglobin A1c 5.7 Calcium Phosphorus Magnesium Total Bilirubin AST ALT Alkaline Phosphatase Total Creatine Kinase CK-MB (Mass) Troponin I, Quant Total Protein Albumin Globulin Albumin/Globulin Ratio Triglycerides Cholesterol LDL Cholesterol Direct HDL Cholesterol 08/17/16 12:46 WBC RBC Hgb Hct MCV MCH MCHC RDW Plt Count MPV Neut % (Auto) Lymph % (Auto) [place] % (Auto) Eos % (Auto) Baso % (Auto) Neut # Lymph # [place] # Eos # Baso # APTT Puncture Site pCO2 pO2 HCO3 ABG pH ABG Total CO2 ABG O2 Saturation ABG Base Excess ABG Hemoglobin ABG Carboxyhemoglobin POC ABG HHb (Measured) ABG Methemoglobin Alberto Test A-a O2 Difference Respiratory Index Hgb O2 Saturation Mechanical Rate FiO2 Tidal Volume PEEP Sodium Potassium Chloride Carbon Dioxide Anion Gap BUN Creatinine Est GFR ( Amer) Est GFR (Non-Af Amer) POC Glucose (mg/dL) 74 Random Glucose Hemoglobin A1c Calcium Phosphorus Magnesium Total Bilirubin AST ALT Alkaline Phosphatase Total Creatine Kinase CK-MB (Mass) Troponin I, Quant Total Protein Albumin Globulin Albumin/Globulin Ratio Triglycerides Cholesterol LDL Cholesterol Direct HDL Cholesterol EKG/Cardiology Studies: Cardiology / EKG Studies 08/16/16 16:00 EKG [ELECTROCARDIOGRAM] Routine Comment: Mode Of Transportation: Reason For Exam: s/p cardiac arrest Critical Care Progress Note - Nutrition Nutrition: Nutrition Category Date Time Status Liquid Diet [DIET] Diets 08/17/16 Dinner Active Attending/Attestation - Attestation I have personally seen and examined this patient.: Yes I have fully participated in the care of the patient.: Yes I have reviewed all pertinent clinical information: Yes Notes (Text): 08/17/16 16:27 patient seen and examined in the intensive care unit. Case discussed with house staff in the morning rounds. Extubated after weaning trial No further seizure activity Awake responsive Seen by neurology EEG done Cardiology workup for low ejection fraction
--- NOTE | 2016-08-17 09:16 | CP.PCM.PN ---
Subjective - Date & Time of Evaluation Date of Evaluation: 08/17/16 Time of Evaluation: 08:45 - Subjective Subjective: Medical Attending Follow-up: Cardiac arrest, Hyperkalema, Seizure, ESRD Patient seen and examined with family at bedside. Patient is currently on sedation vacation. Unable to review clinical ROS secondary to clinical state. Objective - Vital Signs/Intake and Output Vital Signs (last 24 hours): Temp Pulse Resp BP Pulse Ox 98.2 F 95 H 14 86/53 L 100 08/17/16 08:00 08/17/16 08:00 08/17/16 08:00 08/17/16 07:38 08/17/16 08:00 Intake and Output: 08/17/16 08/17/16 06:59 18:59 Intake Total 1512.9 53.8 Balance 1512.9 53.8 - Medications Medications: Current Medications Aspirin (Aspirin Chewable) 81 mg PO DAILY [facility] Last Admin: 08/16/16 15:46 Dose: 81 mg Clopidogrel Bisulfate (Plavix) 75 mg PO DAILY [facility] Last Admin: 08/16/16 15:46 Dose: 75 mg Famotidine (Pepcid) 20 mg IVP DAILY [facility] Last Admin: 08/16/16 15:45 Dose: 20 mg Heparin Sodium (Porcine) (Heparin) 5,000 units SC Q12 [facility] Last Admin: 08/16/16 22:08 Dose: 5,000 units Propofol (Diprivan) 1,000 mg in 100 mls @ 4.972 mls/hr IV .Q20H7M PRN; Protocol ; 9 MCG/KG/MIN PRN Reason: TITRATE PER MD ORDER Last Titration: 08/17/16 08:10 Dose: 10 mcg/kg/min, 5.525 mls/hr Fentanyl Citrate 2,500 mcg/ (Sodium Chloride) 250 mls @ 28.53 mls/hr IV .Q8H46M [facility]; 3 MCG/KG/HR PRN Reason: Protocol Last Admin: 08/17/16 07:23 Dose: Not Given Insulin Aspart (Novolog) 0 unit SC Q6 [facility] PRN Reason: Protocol Last Admin: 08/17/16 06:00 Dose: Not Given Metoprolol Tartrate (Lopressor) 12.5 mg PO BID [facility] Last Admin: 08/16/16 17:30 Dose: 12.5 mg Rosuvastatin Calcium (Crestor) 10 mg PO HS [facility] Last Admin: 08/16/16 22:09 Dose: 10 mg - Labs Labs: 08/17/16 06:03 08/17/16 06:03 PT 12.5 SECONDS (9.7-12.2) H 08/16/16 10:29 INR 1.1 08/16/16 10:29 APTT 29 SECONDS (21-34) D 08/17/16 06:03 - Constitutional Appears: Non-toxic, No Acute Distress - Head Exam Head Exam: NORMAL INSPECTION - Eye Exam Eye Exam: PERRL. absent: EOMI, Nystagmus, Scleral icterus - ENT Exam ENT Exam: Mucous Membranes Moist - Cardiovascular Exam Cardiovascular Exam: REGULAR RHYTHM, +S1, +S2 - GI/Abdominal Exam GI & Abdominal Exam: Soft, Normal Bowel Sounds. absent: Distended, Guarding, Rigid, Tenderness, Rebound - Extremities Exam Extremities Exam: Pedal Edema. absent: Tenderness - Neurological Exam Neurological Exam: Alert - Skin Skin Exam: Dry, Intact, Normal Color, Warm Assessment and Plan (1) Cardiac arrest Assessment & Plan: Consult: Dr Haynes (Cardiology) on board-->help appreciated -Patient s/p cardiac arrest and 1 defibrillation in HD center -T, Cholestrol: 108, LDL: 46, HDL: 25 -Hgba1c: 5.4--->patient is not diabetic; d/c insuling regimen -Troponin: 0.2410-->0.3480 -proBNP 47109 -Pending echocardiogram -f/u D dimer -f/u venous dopplers b/l -ASA 81mg po daily -Plavix 75mg po daily -Crestor 10mg po hs -Metoprolol tartate 12.5mg po bid -head CT (08/16/16): no intracranial mass, hemorrhage, or evidence of acute infarct. 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 Mata) on board-->help appreciated Lopressor 12.5mg PO Q 12hours ESRD Status: Chronic (5) Prophylactic measure Assessment & Plan: DVT ppx: Heparin 5000 units subq 12hours Status: Acute
[2016-08-17] MEDS ORDERED: Dextrose 50% SYRINGE Inj (50 ml) IV STA (09:31)
--- NOTE | 2016-08-17 10:49 | RAD ---
HISTORY: intubated COMPARISON: 08/16/2016 FINDINGS: LUNGS: Linear opacity mid right lung, likely subsegmental atelectasis. No pulmonary infiltrate. Possible subsegmental atelectasis at left base, retrocardiac. No acute infiltrate. PLEURA: No significant pleural effusion identified, no pneumothorax apparent. CARDIOVASCULAR: Mild cardiomegaly. OSSEOUS STRUCTURES: No significant abnormalities. VISUALIZED UPPER ABDOMEN: Normal. OTHER FINDINGS: ETT and NG tube unchanged. IMPRESSION: No acute infiltrate. Mild cardiomegaly. Subsegmental atelectasis. Lines and tubes unchanged.
--- NOTE | 2016-08-17 11:23 | CARD ---
APPROVED REPORT EKG Measurement Heart [id number] <Conclusion> Normal sinus rhythm Possible Left atrial enlargement Inferior infarct, age undetermined Prolonged QT Abnormal ECG
--- NOTE | 2016-08-17 11:24 | CARD ---
APPROVED REPORT EKG Measurement Heart [id number] <Conclusion> a.fib with rvr Inferior infarct, age undetermined Anterior infarct, age undetermined Marked ST abnormality, possible lateral subendocardial injury Abnormal ECG
--- NOTE | 2016-08-17 11:25 | CARD ---
APPROVED REPORT EKG Measurement Heart [id number] <Conclusion> multifocal atrial tachy. Inferior infarct, age undetermined Abnormal ECG
[2016-08-17] MEDS: Thiamine 100 mg/ml Inj IV SCH ×2 (12:41→19:56)
--- NOTE | 2016-08-17 13:30 | CARD ---
APPROVED REPORT EXAM: Two-dimensional and M-mode echocardiogram with Doppler and color Doppler. Other Information Quality : GoodRhythm : NSR INDICATION Dizziness and Vertigo ESRD RISK FACTORS Hypertension 2D DIMENSIONS IVSd1.1 (0.7-1.1cm)Aortic Root (2D)3.1 (2.0-3.7cm) LVDd5.4 (3.9-5.9cm)PWd1.1 (0.7-1.1cm) LVDs4.6 (2.5-4.0cm)FS (%) 15.0 % LVEF (%)31.5 (>50%) M-Mode DIMENSIONS RVDd3.20 (2.1-3.2cm)Left Atrium (MM)5.90 (2.5-4.0cm) IVSd0.86 (0.7-1.1cm)Aortic Root2.93 (2.2-3.7cm) LVDd6.36 (4.0-5.6cm)Aortic Cusp Exc.1.87 (1.5-2.0cm) PWd1.09 (0.7-1.1cm)FS (%) 21 % LVDs5.00 (2.0-3.8cm)LVEF (%)43 (>50%) Mitral Valve MV E Xqudkhez081.7cm/sMV A Zonnqhzl40.7cm/sE/A ratio1.1 TDI E/Lateral E'0.0E/Medial E'0.0 Tricuspid Valve TR Peak [id number]/sTR Peak Gr.[id number] LEFT VENTRICLE The Left Ventricle is severely dilated. There is normal left ventricular wall thickness. The Ejection Fraction is 30-35%. extensive akinesia of septal,inferior,inferoapical,apex.cad.no mural clots seen. Transmitral Doppler flow pattern is Grade II-pseudonormal filling dynamics. The left atrial pressure is moderately elevated. la volume index is severely increased. RIGHT VENTRICLE The right ventricle is normal size. Systolic function is mildly reduced. ATRIA The left atrium is severely dilated. The right atrium size is normal. The interatrial septum is intact with no evidence for an atrial septal defect. AORTIC VALVE The aortic valve is trileaflet. The aortic valve is mildly calcified. No aortic regurgitation is present. MITRAL VALVE sclerotic mitral leaflets.calcified posterior mitral leaflet. Mitral regurgitation is moderate to severe. TRICUSPID VALVE The tricuspid valve is normal in structure. There is severe tricuspid regurgitation. Right ventricular systolic pressure is estimated at 30 mmHg. PULMONIC VALVE The pulmonary valve is normal in structure. GREAT VESSELS The aortic root is normal size. The aortic root displays moderate sclerocalcific changes of the aortic root. PERICARDIAL EFFUSION small posterior pericardial effusion seen. <Conclusion> The Left Ventricle is severely dilated. There is normal left ventricular wall thickness. The Ejection Fraction is 30-35%. extensive akinesia of septal,inferior,inferoapical,apex.cad.no mural clots seen. Transmitral Doppler flow pattern is Grade II-pseudonormal filling dynamics. The left atrial pressure is moderately elevated. la volume index is severely increased. rv Systolic function is mildly reduced. The left atrium is severely dilated. sclerotic mitral leaflets.calcified posterior mitral leaflet. Mitral regurgitation is moderate to severe. calculated pulmonary systolic pressures is underestimated.
--- NOTE | 2016-08-17 13:32 | CP.PCM.PN ---
Subjective - Date & Time of Evaluation Date of Evaluation: 08/17/16 Time of Evaluation: 13:30 - Subjective Subjective: Events noted. Now extubated , alert No witnessed seizures now BP better Dopplers just done Not dyspneic, no CPs Objective - Vital Signs/Intake and Output Vital Signs (last 24 hours): Temp Pulse Resp BP Pulse Ox 98.2 F 98 H 17 111/72 100 08/17/16 08:00 08/17/16 11:17 08/17/16 11:17 08/17/16 11:17 08/17/16 11:17 Intake and Output: 08/17/16 08/17/16 06:59 18:59 Intake Total 1512.9 104.3 Balance 1512.9 104.3 - Medications Medications: Current Medications Aspirin (Aspirin Chewable) 81 mg PO DAILY [facility] Last Admin: 08/17/16 09:49 Dose: 81 mg Clopidogrel Bisulfate (Plavix) 75 mg PO DAILY [facility] Last Admin: 08/17/16 09:49 Dose: 75 mg Famotidine (Pepcid) 20 mg IVP DAILY [facility] Last Admin: 08/17/16 09:49 Dose: 20 mg Heparin Sodium (Porcine) (Heparin) 5,000 units SC Q12 [facility] Last Admin: 08/17/16 09:48 Dose: 5,000 units Metoprolol Tartrate (Lopressor) 12.5 mg PO Q12 [facility] Last Admin: 08/17/16 10:09 Dose: Not Given Rosuvastatin Calcium (Crestor) 10 mg PO HS [facility] Last Admin: 08/16/16 22:09 Dose: 10 mg Thiamine HCl (Vitamin B1 Inj) 100 mg IV Q8H [facility] Last Admin: 08/17/16 12:41 Dose: 100 mg - Labs Labs: 08/17/16 06:03 08/17/16 06:03 PT 12.5 SECONDS (9.7-12.2) H 08/16/16 10:29 INR 1.1 08/16/16 10:29 APTT 29 SECONDS (21-34) D 08/17/16 06:03 - Constitutional Appears: No Acute Distress, Chronically Ill - Head Exam Head Exam: ATRAUMATIC, NORMAL INSPECTION - Eye Exam Eye Exam: EOMI, Normal appearance - Neck Exam Neck Exam: Normal Inspection. absent: Tenderness - Respiratory Exam Respiratory Exam: Clear to Ausculation Bilateral, NORMAL BREATHING PATTERN - Cardiovascular Exam Cardiovascular Exam: REGULAR RHYTHM, +S1 - GI/Abdominal Exam GI & Abdominal Exam: Soft. absent: Tenderness - Extremities Exam Extremities Exam: Tenderness. absent: Pedal Edema - Neurological Exam Neurological Exam: Awake, CN II-XII Intact - Skin Skin Exam: Dry, Warm Assessment and Plan (1) Secondary hyperparathyroidism Status: Acute (2) Cardiac arrest Status: Acute (3) Seizure Status: Acute (4) ESRD (end stage renal disease) Status: Chronic (5) HTN (hypertension) Status: Chronic - Assessment and Plan (Free Text) Plan: Repeat dialysis in AM and TTS Add phoslo Continue ICU management check dopplers monitor BP
--- NOTE | 2016-08-17 15:56 | CP.PCM.CON ---
<Nicolás Turcios - Last Filed: 08/17/16 16:21> History of Present Illness - History of Present Illness History of Present Illness: Consult Note for Dr. Maza Reason for Consult: EF 30-35% 41 y/o M with PMH of ESRD, HTN, and secondary hyperparathyroidism presented initially on 08/16/16 s/p cardiac arrest at dialysis center. Pt had 2.5 hours of dialysis treatment when he began feeling dizzy. Pt coded at the dialysis center and was defibrillated one time in the field. Pt was brought into the ED where he was found to have 2 episodes of tonic clonic seizures. Pt was given ativan at this time for seizures. Initial history was provided by who stated the patient had been complaining of dyspnea for the past year, especially on exertion. EKG showed multifocal atrial tachycardia with a rate of 108 bpm. Echocardiogram showed an EF of 30-35%, severely dilated LA and LV, and reduced systolic dysfunction. PMH: ESRD, HTN, secondary hyperparathyroidism Surgical Hx: Femoral permacath 12/16/16 Family Hx: Lung cancer Social Hx: denies tobacco, EtOH, drug use. Currently unemployed and lives at home with . Denied any recent travel. Meds: See MAR ALL: NKDA Review of Systems - Constitutional Constitutional: Fatigue. absent: Fever - EENT Eyes: absent: Blurred Vision, Change in Vision - Cardiovascular Cardiovascular: absent: Chest Pain, Irregular Heart Rhythm - Respiratory Respiratory: absent: Cough, Dyspnea - Gastrointestinal Gastrointestinal: absent: Abdominal Pain, Diarrhea, Vomiting - Genitourinary Genitourinary: absent: Dysuria, Hematuria - Integumentary Integumentary: absent: New Lesions, Rash - Neurological Neurological: absent: Dizziness, Syncope, Tremor Past Patient History - Infectious Disease Hx of Infectious Diseases: None - Past Medical History & Family History Past Medical History?: Yes - Past Social History Smoking Status: Never Smoked - CARDIAC Hx Hypertension: Yes - PULMONARY Hx Respiratory Disorders: No - NEUROLOGICAL Hx Neurological Disorder: No - HEENT Hx HEENT Problems: No - RENAL Hx Dialysis: Yes Type of Dialysis Access: Permacath Date of Last Dialysis Treatment: 08/16/16 - ENDOCRINE/METABOLIC Hx Endocrine Disorders: No - HEMATOLOGICAL/ONCOLOGICAL Hx Blood Disorders: No - INTEGUMENTARY Hx Dermatological Problems: No - MUSCULOSKELETAL/RHEUMATOLOGICAL Hx Falls: No - GASTROINTESTINAL Hx Gastrointestinal Disorders: No - GENITOURINARY/GYNECOLOGICAL Hx Genitourinary Disorders: Yes Other/Comment: on HD VOIDS CLEAR YELLOW - PSYCHIATRIC Hx Substance Use: No - SURGICAL HISTORY Hx Surgeries: Yes Other/Comment: RIGHT GROIN DIAYSIS CATH 11/2015, P:D Catheter 4 Yrs. Ago,Rt. Perma cath - ANESTHESIA Hx Anesthesia: Yes Hx Anesthesia Reactions: No Hx Malignant Hyperthermia: No Meds Allergies/Adverse Reactions: Allergies Allergy/AdvReac Type Severity Reaction Status Date / Time shellfish Allergy DIZZINESS Uncoded 08/16/16 16:54 - Medications Medications: Current Medications Aspirin (Aspirin Chewable) 81 mg PO DAILY [facility] Last Admin: 08/17/16 09:49 Dose: 81 mg Calcium Acetate (Phoslo) 1,334 mg PO TIDCC [facility] Clopidogrel Bisulfate (Plavix) 75 mg PO DAILY [facility] Last Admin: 08/17/16 09:49 Dose: 75 mg Epoetin Imtiaz (Procrit) 10,000 unit IV TTS [facility] Famotidine (Pepcid) 20 mg IVP DAILY [facility] Last Admin: 08/17/16 09:49 Dose: 20 mg Heparin Sodium (Porcine) (Heparin) 5,000 units SC Q12 [facility] Last Admin: 08/17/16 09:48 Dose: 5,000 units Metoprolol Tartrate (Lopressor) 12.5 mg PO Q12 [facility] Last Admin: 08/17/16 10:09 Dose: Not Given Rosuvastatin Calcium (Crestor) 10 mg PO HS [facility] Last Admin: 08/16/16 22:09 Dose: 10 mg Thiamine HCl (Vitamin B1 Inj) 100 mg IV Q8H [facility] Last Admin: 08/17/16 12:41 Dose: 100 mg Physical Exam - Constitutional Appears: Non-toxic, No Acute Distress - Head Exam Head Exam: ATRAUMATIC, NORMAL INSPECTION, NORMOCEPHALIC - ENT Exam ENT Exam: Mucous Membranes Moist - Respiratory Exam Respiratory Exam: Clear to Auscultation Bilateral, NORMAL BREATHING PATTERN. absent: Rhonchi, Wheezes - Cardiovascular Exam Cardiovascular Exam: RRR, +S1, +S2 - GI/Abdominal Exam GI & Abdominal Exam: Normal Bowel Sounds, Soft. absent: Tenderness - Extremities Exam Extremities exam: Negative for: calf tenderness, pedal edema Additional comments: Dialysis catheter located on right leg - Neurological Exam Neurological exam: Alert, Oriented x3 - Skin Skin Exam: Intact, Normal Color, Warm Results - Vital Signs Recent Vital Signs: Last Vital Signs Temp 98.2 F 08/17/16 08:00 Pulse 98 H 08/17/16 11:17 Resp 17 08/17/16 11:17 BP 111/72 08/17/16 11:17 Pulse Ox 100 08/17/16 11:17 - Labs Result Diagrams: 08/17/16 06:03 08/17/16 06:03 Labs: Laboratory Results - last 24 hr 08/16/16 08/16/16 08/16/16 15:30 15:30 15:30 WBC RBC Hgb Hct MCV MCH MCHC RDW Plt Count MPV Neut % (Auto) Lymph % (Auto) [place] % (Auto) Eos % (Auto) Baso % (Auto) Neut # Lymph # Walker # Eos # Baso # APTT D-Dimer, Quantitative 936 H Puncture Site pCO2 pO2 HCO3 ABG pH ABG Total CO2 ABG O2 Saturation ABG Base Excess ABG Hemoglobin ABG Carboxyhemoglobin POC ABG HHb (Measured) ABG Methemoglobin Alberto Test A-a O2 Difference Respiratory Index Hgb O2 Saturation Mechanical Rate FiO2 Tidal Volume PEEP Sodium Potassium Chloride Carbon Dioxide Anion Gap BUN Creatinine Est GFR ( Amer) Est GFR (Non-Af Amer) POC Glucose (mg/dL) Random Glucose Hemoglobin A1c 5.4 Calcium Phosphorus 4.9 H Magnesium 2.3 Total Bilirubin AST ALT Alkaline Phosphatase Total Creatine Kinase 439 H CK-MB (Mass) 5.80 H Troponin I, Quant 0.3480 H* Total Protein Albumin Globulin Albumin/Globulin Ratio Triglycerides Cholesterol LDL Cholesterol Direct HDL Cholesterol 08/16/16 08/16/16 08/17/16 17:40 23:27 04:35 WBC RBC Hgb Hct MCV MCH MCHC RDW Plt Count MPV Neut % (Auto) Lymph % (Auto) [place] % (Auto) Eos % (Auto) Baso % (Auto) Neut # Lymph # [place] # Eos # Baso # APTT D-Dimer, Quantitative Puncture Site Lb pCO2 43 pO2 119 H HCO3 26.7 ABG pH 7.41 ABG Total CO2 28.6 H ABG O2 Saturation 98.6 H ABG Base Excess 2.3 ABG Hemoglobin 13.0 ABG Carboxyhemoglobin 1.6 H POC ABG HHb (Measured) 1.4 ABG Methemoglobin 0.9 Alberto Test Na A-a O2 Difference 112.0 Respiratory Index 0.9 Hgb O2 Saturation 96.1 Mechanical Rate 12 FiO2 40.0 Tidal Volume 500 PEEP 5 Sodium Potassium Chloride Carbon Dioxide Anion Gap BUN Creatinine Est GFR ( Amer) Est GFR (Non-Af Amer) POC Glucose (mg/dL) 89 86 Random Glucose Hemoglobin A1c Calcium Phosphorus Magnesium Total Bilirubin AST ALT Alkaline Phosphatase Total Creatine Kinase CK-MB (Mass) Troponin I, Quant Total Protein Albumin Globulin Albumin/Globulin Ratio Triglycerides Cholesterol LDL Cholesterol Direct HDL Cholesterol 08/17/16 08/17/16 08/17/16 05:29 06:03 06:03 WBC RBC Hgb Hct MCV MCH MCHC RDW Plt Count MPV Neut % (Auto) Lymph % (Auto) [place] % (Auto) Eos % (Auto) Baso % (Auto) Neut # Lymph # [place] # Eos # Baso # APTT D-Dimer, Quantitative Puncture Site pCO2 pO2 HCO3 ABG pH ABG Total CO2 ABG O2 Saturation ABG Base Excess ABG Hemoglobin ABG Carboxyhemoglobin POC ABG HHb (Measured) ABG Methemoglobin Alberto Test A-a O2 Difference Respiratory Index Hgb O2 Saturation Mechanical Rate FiO2 Tidal Volume PEEP Sodium 134 Potassium 4.0 Chloride 95 L Carbon Dioxide 23 Anion Gap 20 BUN 42 H Creatinine 9.4 H* Est GFR ( Amer) 7 Est GFR (Non-Af Amer) 6 POC Glucose (mg/dL) 88 Random Glucose 64 L Hemoglobin A1c 5.7 Calcium 8.4 L Phosphorus 5.7 H Magnesium 2.1 Total Bilirubin 0.6 AST 25 ALT 24 Alkaline Phosphatase 275 H D Total Creatine Kinase CK-MB (Mass) Troponin I, Quant Total Protein 5.6 L Albumin 3.0 L Globulin 2.7 Albumin/Globulin Ratio 1.1 Triglycerides 700 H Cholesterol 108 LDL Cholesterol Direct 46 HDL Cholesterol 25 L 08/17/16 08/17/16 08/17/16 06:03 06:03 12:46 WBC 6.9 RBC 3.65 L Hgb 8.9 L Hct 28.9 L MCV 79.1 L MCH 24.4 L MCHC 30.8 L RDW 20.6 H Plt Count 154 MPV 9.9 Neut % (Auto) 76.1 H Lymph % (Auto) 14.7 L Walker % (Auto) 5.8 Eos % (Auto) 2.2 Baso % (Auto) 1.2 Neut # 5.2 Lymph # 1.0 Walker # 0.4 Eos # 0.2 Baso # 0.1 APTT 29 D D-Dimer, Quantitative Puncture Site pCO2 pO2 HCO3 ABG pH ABG Total CO2 ABG O2 Saturation ABG Base Excess ABG Hemoglobin ABG Carboxyhemoglobin POC ABG HHb (Measured) ABG Methemoglobin Alberto Test A-a O2 Difference Respiratory Index Hgb O2 Saturation Mechanical Rate FiO2 Tidal Volume PEEP Sodium Potassium Chloride Carbon Dioxide Anion Gap BUN Creatinine Est GFR ( Amer) Est GFR (Non-Af Amer) POC Glucose (mg/dL) 74 Random Glucose Hemoglobin A1c Calcium Phosphorus Magnesium Total Bilirubin AST ALT Alkaline Phosphatase Total Creatine Kinase CK-MB (Mass) Troponin I, Quant Total Protein Albumin Globulin Albumin/Globulin Ratio Triglycerides Cholesterol LDL Cholesterol Direct HDL Cholesterol Assessment & Plan (1) Cardiac arrest Assessment and Plan: S/p cardiac arrest during dialysis Seizure in ED, being followed by Neurology BNP [id number] Troponins elevated, possibly secondary to CPR? Echocardiogram with decreased EF 30-35% Will consider ICD placement vs Life vest Status: Acute <Ashlyn Maza A - Last Filed: 09/23/16 07:56> Results - Vital Signs Recent Vital Signs: Last Vital Signs Temp 98.4 F 08/22/16 19:00 Pulse 105 H 08/22/16 19:00 Resp 18 08/22/16 19:00 BP 131/91 H 08/22/16 19:00 Pulse Ox 100 08/22/16 19:00 - Labs Result Diagrams: 08/22/16 08:09 08/22/16 08:09 Attending/Attestation - Attestation I have personally seen and examined this patient.: Yes I have fully participated in the care of the patient.: Yes I have reviewed all pertinent clinical information: Yes Notes (Text): 09/23/16 07:56 s/p cardiac arrest will eval for icd tx
--- NOTE | 2016-08-17 16:48 | CP.PCM.CON ---
History of Present Illness - History of Present Illness History of Present Illness: NEURO CONSULT NOTE: 08/17/16 CHIEF COMPLAINT: NEW ONSET SEIZURE HPI: 41 YEAR OLD MAN WITH H/O ESRD ON HD, HTN, HLD, SECONDARY HYPERPARATHYROIDISM WHO WAS S/P CARDIAC ARREST AT HEMODIALYSIS. IT WAS NOTICES HE HAD GENERALIZED TONIC CLONIC MOVEMENTS AFTER THE CARDIAC ARREST. IT WAS NOTICED HIS SYSTOLIC AND DIASTOLIC BP WERE LOWER. CT HEAD SHOWED NO ACUTE INTRACRANIAL ABNORMALITY. CURRENTLY HE'S EXTUBATED, FOLLOWS SIMPLE COMMANDS, AND MOVES ALL EXTREMITIES. ROS: 14 POINT REVIEW OF SYMPTOMS IS NEGATIVE PER HPI. ALLERGIES: SHELLFISH SOCIAL HISTORY: NO ILLICIT DRUG USE, SMOKING, OR ETOH USE. FAMILY: NON CONTRIBUTORY. MEDICATIONS: REVIEWED BY NURSE'S RECONCILIATION SHEET. PAST MEDICAL HISTORY: HTN, ESRD ON HD, SECONDARY HYPERPARATHYROIDISM PHYSICAL EXAM: VITAL SIGNS: REVIEWED BY THE CHART GENERAL EXAM: PATIENT SEEN IN BED, IN NO ACUTE DISTRESS MORBIDLY OBESE. HEENT: PERRLA, EOMI, NECK SUPPLE, NO JVD, NO ADENOPATHY CVS: S1, S2, RRR, NO MURMURS NOTED LUNGS: CLEAR TO AUSCULTATION, NO ADVENTITIOUS SOUNDS ABDOMEN: SOFT AND NONTENDER EXTREMITIES: NO CLUBBING OR CYANOSIS. PP 2+ B/L NEURO: PT IS ALERT AND ORIENTED TO PERSON, PLACE, AND YEAR. POOR ATTENTION SPAN , SLOW THOUGHT PROCESS, RECALL TO 5 MINUTES 0/3, SPEECH IS FLUENT WITHOUT ERRORS, CN II-XII INTACT, MOTOR EXAM: NORMAL TONE, NORMAL BULK OF MUSCLE, MOVES ALL EXTREMITIES EQUALLY, NO PRONATOR DRIFT SEEN. SENSORY EXAM: LIGHT TOUCH, PIN PRICK UP TO CALVES B/L, PROPRIOCEPTION , VIBRATION ARE INTACT B/L DEEP TENDON REFLEXES: 2+ THROUGHOUT. COORDINATION: FINGER TO NOSE IS INTACT. GAIT: DEFERRED LABS: REVIEWED BY THE CHART. ASSESSMENT AND PLAN: 41 YEAR OLD MAN WITH H/O ESRD ON HD, HTN, HLD, SECONDARY HYPERPARATHYROIDISM WHO WAS S/P CARDIAC ARREST AT HEMODIALYSIS. IT WAS NOTICES HE HAD GENERALIZED TONIC CLONIC MOVEMENTS AFTER THE CARDIAC ARREST. IT WAS NOTICED HIS SYSTOLIC AND DIASTOLIC BP WERE LOWER. CT HEAD SHOWED NO ACUTE INTRACRANIAL ABNORMALITY. CURRENTLY HE'S EXTUBATED, FOLLOWS SIMPLE COMMANDS, AND MOVES ALL EXTREMITIES. 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 PLAN: 1.. ASA 81 MG FOR STROKE PREVENTION 2. MONITOR ELECTROLYTES AND CORRECT ACCORDINGLY. 3. NO AEDS FOR NOW AND MONITOR 4. LOOP RECORDER POSSIBLY TO ASSESS FOR ARRYTHMIAS. THANK YOU PLEASE RECONSULT NECESSARY. Aretha PATRICIO MD Past Patient History - Infectious Disease Hx of Infectious Diseases: None - Past Medical History & Family History Past Medical History?: Yes - Past Social History Smoking Status: Never Smoked - CARDIAC Hx Hypertension: Yes - PULMONARY Hx Respiratory Disorders: No - NEUROLOGICAL Hx Neurological Disorder: No - HEENT Hx HEENT Problems: No - RENAL Hx Dialysis: Yes Type of Dialysis Access: Permacath Date of Last Dialysis Treatment: 08/16/16 - ENDOCRINE/METABOLIC Hx Endocrine Disorders: No - HEMATOLOGICAL/ONCOLOGICAL Hx Blood Disorders: No - INTEGUMENTARY Hx Dermatological Problems: No - MUSCULOSKELETAL/RHEUMATOLOGICAL Hx Falls: No - GASTROINTESTINAL Hx Gastrointestinal Disorders: No - GENITOURINARY/GYNECOLOGICAL Hx Genitourinary Disorders: Yes Other/Comment: on HD VOIDS CLEAR YELLOW - PSYCHIATRIC Hx Substance Use: No - SURGICAL HISTORY Hx Surgeries: Yes Other/Comment: RIGHT GROIN DIAYSIS CATH 11/2015, P:D Catheter 4 Yrs. Ago,Rt. Perma cath - ANESTHESIA Hx Anesthesia: Yes Hx Anesthesia Reactions: No Hx Malignant Hyperthermia: No Meds Allergies/Adverse Reactions: Allergies Allergy/AdvReac Type Severity Reaction Status Date / Time shellfish Allergy DIZZINESS Uncoded 08/16/16 16:54 - Medications Medications: Current Medications Aspirin (Aspirin Chewable) 81 mg PO DAILY [facility] Last Admin: 08/17/16 09:49 Dose: 81 mg Calcium Acetate (Phoslo) 1,334 mg PO TIDCC [facility] Last Admin: 08/17/16 14:00 Dose: Not Given Clopidogrel Bisulfate (Plavix) 75 mg PO DAILY [facility] Last Admin: 08/17/16 09:49 Dose: 75 mg Epoetin Imtiaz (Procrit) 10,000 unit IV TTS [facility] Famotidine (Pepcid) 20 mg IVP DAILY [facility] Last Admin: 08/17/16 09:49 Dose: 20 mg Heparin Sodium (Porcine) (Heparin) 5,000 units SC Q12 [facility] Last Admin: 08/17/16 09:48 Dose: 5,000 units Metoprolol Tartrate (Lopressor) 12.5 mg PO Q12 [facility] Last Admin: 08/17/16 10:09 Dose: Not Given Rosuvastatin Calcium (Crestor) 10 mg PO HS [facility] Last Admin: 08/16/16 22:09 Dose: 10 mg Thiamine HCl (Vitamin B1 Inj) 100 mg IV Q8H [facility] Last Admin: 08/17/16 12:41 Dose: 100 mg Results - Vital Signs Recent Vital Signs: Last Vital Signs Temp 98.2 F 08/17/16 08:00 Pulse 98 H 08/17/16 11:17 Resp 17 08/17/16 11:17 BP 111/72 08/17/16 11:17 Pulse Ox 100 08/17/16 11:17 - Labs Result Diagrams: 08/17/16 06:03 08/17/16 06:03 Labs: Laboratory Results - last 24 hr 08/16/16 08/16/16 08/17/16 17:40 23:27 04:35 WBC RBC Hgb Hct MCV MCH MCHC RDW Plt Count MPV Neut % (Auto) Lymph % (Auto) [place] % (Auto) Eos % (Auto) Baso % (Auto) Neut # Lymph # [place] # Eos # Baso # APTT Puncture Site Lb pCO2 43 pO2 119 H HCO3 26.7 ABG pH 7.41 ABG Total CO2 28.6 H ABG O2 Saturation 98.6 H ABG Base Excess 2.3 ABG Hemoglobin 13.0 ABG Carboxyhemoglobin 1.6 H POC ABG HHb (Measured) 1.4 ABG Methemoglobin 0.9 Alberto Test Na A-a O2 Difference 112.0 Respiratory Index 0.9 Hgb O2 Saturation 96.1 Mechanical Rate 12 FiO2 40.0 Tidal Volume 500 PEEP 5 Sodium Potassium Chloride Carbon Dioxide Anion Gap BUN Creatinine Est GFR ( Amer) Est GFR (Non-Af Amer) POC Glucose (mg/dL) 89 86 Random Glucose Hemoglobin A1c Calcium Phosphorus Magnesium Total Bilirubin AST ALT Alkaline Phosphatase Total Protein Albumin Globulin Albumin/Globulin Ratio Triglycerides Cholesterol LDL Cholesterol Direct HDL Cholesterol 08/17/16 08/17/16 08/17/16 05:29 06:03 06:03 WBC RBC Hgb Hct MCV MCH MCHC RDW Plt Count MPV Neut % (Auto) Lymph % (Auto) [place] % (Auto) Eos % (Auto) Baso % (Auto) Neut # Lymph # [place] # Eos # Baso # APTT Puncture Site pCO2 pO2 HCO3 ABG pH ABG Total CO2 ABG O2 Saturation ABG Base Excess ABG Hemoglobin ABG Carboxyhemoglobin POC ABG HHb (Measured) ABG Methemoglobin Alberto Test A-a O2 Difference Respiratory Index Hgb O2 Saturation Mechanical Rate FiO2 Tidal Volume PEEP Sodium 134 Potassium 4.0 Chloride 95 L Carbon Dioxide 23 Anion Gap 20 BUN 42 H Creatinine 9.4 H* Est GFR ( Amer) 7 Est GFR (Non-Af Amer) 6 POC Glucose (mg/dL) 88 Random Glucose 64 L Hemoglobin A1c 5.7 Calcium 8.4 L Phosphorus 5.7 H Magnesium 2.1 Total Bilirubin 0.6 AST 25 ALT 24 Alkaline Phosphatase 275 H D Total Protein 5.6 L Albumin 3.0 L Globulin 2.7 Albumin/Globulin Ratio 1.1 Triglycerides 700 H Cholesterol 108 LDL Cholesterol Direct 46 HDL Cholesterol 25 L 08/17/16 08/17/16 08/17/16 06:03 06:03 12:46 WBC 6.9 RBC 3.65 L Hgb 8.9 L Hct 28.9 L MCV 79.1 L MCH 24.4 L MCHC 30.8 L RDW 20.6 H Plt Count 154 MPV 9.9 Neut % (Auto) 76.1 H Lymph % (Auto) 14.7 L [place] % (Auto) 5.8 Eos % (Auto) 2.2 Baso % (Auto) 1.2 Neut # 5.2 Lymph # 1.0 [place] # 0.4 Eos # 0.2 Baso # 0.1 APTT 29 D Puncture Site pCO2 pO2 HCO3 ABG pH ABG Total CO2 ABG O2 Saturation ABG Base Excess ABG Hemoglobin ABG Carboxyhemoglobin POC ABG HHb (Measured) ABG Methemoglobin Alberto Test A-a O2 Difference Respiratory Index Hgb O2 Saturation Mechanical Rate FiO2 Tidal Volume PEEP Sodium Potassium Chloride Carbon Dioxide Anion Gap BUN Creatinine Est GFR ( Amer) Est GFR (Non-Af Amer) POC Glucose (mg/dL) 74 Random Glucose Hemoglobin A1c Calcium Phosphorus Magnesium Total Bilirubin AST ALT Alkaline Phosphatase Total Protein Albumin Globulin Albumin/Globulin Ratio Triglycerides Cholesterol LDL Cholesterol Direct HDL Cholesterol
--- NOTE | 2016-08-17 17:17 | CP.PCM.PN ---
Subjective - Date & Time of Evaluation Date of Evaluation: 08/17/16 Time of Evaluation: 10:00 - Subjective Subjective: EEG REPORT: CONDITION OF THIS RECORDING: DROWSY DIAGNOSIS: AMS MEDICATIONS:l REVIEWED BY NURSE'S RECONCILIATION INTERPRETATION: THIS IS A 16 CHANNEL INTERNATIONAL RECORDING. THE BACKEND OF THIS TRACING WAS COMPOSED OF 6-7 CYCLES PER SECOND. THERE WAS SMALL AMOUNT OF BETA ACTIVITY OF 16-20 CPS IN THE RECORDING AND INCREASE AMOUNT OF THETA ACTIVITY OF 5-7 CPS SEEN IN THIS TRACING. DROWSINESS WAS CHARACTERIZED BY MIXED BETA AND THETA ACTIVITIES. SLEEP WAS CHARACTERIZED BY VERTEX TRANSIENT WAVE, SLEEP SPINDLES, AND B/L SLOWING. PHOTIC STIMULATION SHOWED NO CHANGE IN THE TRACING. NO PAROXYSMAL ACTIVITY NOTED IN THIS RECORDING. EMG ARTIFICAT WAS SEEN. CONCLUSION: THIS IS AN ABNORMAL EEG SHOWING MILD B/L SLOWING THROUGHOUT THE RECORDING CONSISTENT WITH MILD B/L CEREBRAL DYSFUNCTION. NO SEIZURE ACTIVITY. Aretha PATRICIO MD Objective - Vital Signs/Intake and Output Vital Signs (last 24 hours): Temp Pulse Resp BP Pulse Ox 99.8 F H 98 H 17 106/67 99 08/17/16 16:00 08/17/16 16:45 08/17/16 16:45 08/17/16 16:18 08/17/16 16:45 Intake and Output: 08/17/16 08/17/16 06:59 18:59 Intake Total 1512.9 254.3 Balance 1512.9 254.3 - Medications Medications: Current Medications Aspirin (Aspirin Chewable) 81 mg PO DAILY [facility] Last Admin: 08/17/16 09:49 Dose: 81 mg Calcium Acetate (Phoslo) 1,334 mg PO TIDCC [facility] Last Admin: 08/17/16 14:00 Dose: Not Given Clopidogrel Bisulfate (Plavix) 75 mg PO DAILY [facility] Last Admin: 08/17/16 09:49 Dose: 75 mg Epoetin Imtiaz (Procrit) 10,000 unit IV TTS [facility] Famotidine (Pepcid) 20 mg IVP DAILY [facility] Last Admin: 08/17/16 09:49 Dose: 20 mg Heparin Sodium (Porcine) (Heparin) 5,000 units SC Q12 [facility] Last Admin: 08/17/16 09:48 Dose: 5,000 units Metoprolol Tartrate (Lopressor) 12.5 mg PO Q12 [facility] Last Admin: 06/28/17 10:09 Dose: Not Given Rosuvastatin Calcium (Crestor) 10 mg PO HS [facility] Last Admin: 08/16/16 22:09 Dose: 10 mg Thiamine HCl (Vitamin B1 Inj) 100 mg IV Q8H [facility] Last Admin: 08/17/16 12:41 Dose: 100 mg - Labs Labs: 08/17/16 06:03 08/17/16 06:03 PT 12.5 SECONDS (9.7-12.2) H 08/16/16 10:29 INR 1.1 08/16/16 10:29 APTT 29 SECONDS (21-34) D 08/17/16 06:03
[2016-08-17] MEDS ORDERED: Acetaminophen 650mg/20.3ml solution UD PO STA (19:27)
--- NOTE | 2016-08-17 23:24 | CP.PCM.PN ---
Subjective - Date & Time of Evaluation Date of Evaluation: 08/17/16 Time of Evaluation: 17:25 - Subjective Subjective: Patient seen and evaluated Extubated Family at bed side Plan of care discussed with the family For Cath Monday Objective - Vital Signs/Intake and Output Vital Signs (last 24 hours): Temp Pulse Resp BP Pulse Ox 98.5 F 90 19 111/77 97 08/17/16 20:00 08/17/16 23:00 08/17/16 23:00 08/17/16 22:54 08/17/16 23:00 Intake and Output: 08/17/16 08/18/16 18:59 06:59 Intake Total 254.3 420 Balance 254.3 420 - Medications Medications: Current Medications Aspirin (Aspirin Chewable) 81 mg PO DAILY [facility] Last Admin: 08/17/16 09:49 Dose: 81 mg Calcium Acetate (Phoslo) 1,334 mg PO TIDCC [facility] Last Admin: 08/17/16 17:00 Dose: Not Given Clopidogrel Bisulfate (Plavix) 75 mg PO DAILY [facility] Last Admin: 08/17/16 09:49 Dose: 75 mg Epoetin Imtiaz (Procrit) 10,000 unit IV TTS [facility] Famotidine (Pepcid) 20 mg IVP DAILY [facility] Last Admin: 08/17/16 09:49 Dose: 20 mg Heparin Sodium (Porcine) (Heparin) 5,000 units SC Q12 [facility] Last Admin: 08/17/16 21:43 Dose: 5,000 units Metoprolol Tartrate (Lopressor) 12.5 mg PO Q12 [facility] Last Admin: 08/17/16 21:43 Dose: 12.5 mg Rosuvastatin Calcium (Crestor) 10 mg PO HS [facility] Last Admin: 08/17/16 21:43 Dose: 10 mg Thiamine HCl (Vitamin B1 Inj) 100 mg IV Q8H [facility] Last Admin: 08/17/16 19:56 Dose: 100 mg - Labs Labs: 08/17/16 06:03 08/17/16 06:03 PT 12.5 SECONDS (9.7-12.2) H 08/16/16 10:29 INR 1.1 08/16/16 10:29 APTT 29 SECONDS (21-34) D 08/17/16 06:03
[2016-08-18] MEDS: Thiamine 100 mg/ml Inj IV SCH ×3 (04:00→20:18)
[2016-08-18 05:56] LABS: ABG ALLEN TEST POS; ARTERIAL BLOOD HGB O2 SAT 93.3 % (95.0-98.0); CARBOXYHEMOGLOBIN 2.4 % (0.5-1.5); DRAW SITE RR; HHB 3.5 % (0.0-5.0); METHEMOGLOBIN 0.7 % (0.0-3.0)
[2016-08-18 06:48] LABS: BASO # 0.1 K/uL (0.0-0.2); BASO % 1.2 % (0.0-2.0); EOS # 0.3 K/uL (0.0-0.7); EOS % 4.8 % (0.0-4.0); HEMATOCRIT 33.1 % (35.0-51.0); LYMPH # 1.4 K/uL (1.0-4.3); LYMPH % 21.2 % (20.0-40.0); MEAN CELL VOLUME 78.3 fL (80.0-94.0); MEAN CORPUSCULAR HGB CONC 30.6 g/dL (33.0-37.0); MEAN PLATELET VOLUME 9.9 fL (7.2-11.7); MONO # 0.4 K/uL (0.0-0.8); MONO % 6.4 % (0.0-10.0); NRBC % 0.1 % (0.0-2.0); RED CELL DISTRIBUTION WIDTH 20.4 % (11.5-14.5); WHITE BLOOD COUNT 6.5 K/uL (4.8-10.8)
[2016-08-18 07:04] LABS: POTASSIUM 4.6 mmol/L (3.6-5.2)
[2016-08-18 07:06] LABS: ALB/GLOB RATIO 1.2 (1.0-2.1); BILIRUBIN,TOTAL 0.8 mg/dL (0.2-1.3); PHOSPHOROUS 6.5 mg/dL (2.5-4.5); TOTAL PROTEIN 6.5 g/dL (6.3-8.3)
[2016-08-18 07:07] LABS: CALCIUM 10.4 mg/dl (8.6-10.4); MAGNESIUM 2.5 mg/dL (1.6-2.3)
--- NOTE | 2016-08-18 07:22 | CP.CCUPN ---
<Kacie Garcia - Last Filed: 08/18/16 18:18> CCU Subjective - Physician Review Subjective (Free Text): 08/18/16 18:18 Patient seen and examined at bedside. Had HD today as per [facility] schedule. As per nursing no acute events overnight. reported patient was OOB to chair last night which made him very tired. This AM patient is lethargic but easily arousable- nods to reply to ROS. He denied any acute headache, dizziness, chest pain, palpitations, SOB, cough, abd pain, nausea, vomiting, bowel complaints, pain/swelling in his legs b/l. Patient was eager to eat and tolerated diet well. CCU Objective - Vital Signs / Intake & Output Vital Signs (Last 4 hours): Vital Signs Temp Pulse Resp BP Pulse Ox 08/18/16 07:00 89 19 96 08/18/16 06:55 94 H 15 133/92 H 100 08/18/16 06:00 98 H 19 99 08/18/16 05:55 97 H 14 132/89 99 08/18/16 05:00 95 H 16 100 08/18/16 04:55 135/92 H 08/18/16 04:00 97.5 F L 91 H 13 98 08/18/16 03:55 95 H 10 L 130/84 99 Intake and Output (Last 8hrs): Intake & Output 08/17/16 08/18/16 08/18/16 22:59 06:59 14:59 Intake Total 420 50 Balance 420 50 Weight 204 lb Intake: Intake, IV Amount 0 Right Antecubital 0 Oral 420 50 Other: # Bowel Movements 0 0 - Physical Exam Head: Positive for: Atraumatic, Normocephalic Pupils: Positive for: PERRL Extroacular Muscles: Positive for: EOMI Conjunctiva: Positive for: Normal. Negative for: Injected, Icteric Mouth: Positive for: Moist Mucous Membranes Nose (External): Positive for: Atraumatic, Other (NC in place 3L) Neck: Negative for: JVD Respiratory/Chest: Negative for: Respiratory Distress, Accessory Muscle Use, Wheezes, Rales, Rhonchi, Tachypneic Cardiovascular: Positive for: Normal S1, S2, Tachycardic. Negative for: Irregular Rhythm Abdomen: Positive for: Normal Bowel Sounds. Negative for: Tenderness, Distention, Peritoneal Signs Upper Extremity: Positive for: Normal Inspection. Negative for: Cyanosis, Edema Lower Extremity: Positive for: Normal Inspection. Negative for: Edema Neurological: Positive for: Speech Normal Skin: Positive for: Warm, Dry, Normal Color Psychiatric: Positive for: Alert, Oriented x 3 - Medications Active Medications: Active Medications Generic Name Dose Route Start Last Admin Trade Name Freq PRN Reason Stop Dose Admin Aspirin 81 mg 08/16/16 15:15 08/17/16 09:49 Aspirin Chewable PO 81 mg DAILY RAYNE Administration Calcium Acetate 1,334 mg 08/17/16 14:00 08/17/16 17:00 Phoslo PO Not Given TIDCC RAYNE Clopidogrel Bisulfate 75 mg 08/16/16 15:15 08/17/16 09:49 Plavix PO 75 mg DAILY RAYNE Administration Epoetin Imtiaz 10,000 unit 08/18/16 10:00 Procrit IV TTS RAYNE Famotidine 20 mg 08/16/16 14:45 08/17/16 09:49 Pepcid IVP 20 mg DAILY RAYNE Administration Heparin Sodium (Porcine) 5,000 units 08/16/16 22:00 08/17/16 21:43 Heparin SC 5,000 units Q12 RAYNE Administration Metoprolol Tartrate 12.5 mg 08/17/16 10:00 08/17/16 21:43 Lopressor PO 12.5 mg Q12 RAYNE Administration Rosuvastatin Calcium 10 mg 08/16/16 22:00 08/17/16 21:43 Crestor PO 10 mg HS RAYNE Administration Thiamine HCl 100 mg 08/17/16 12:00 08/18/16 04:00 Vitamin B1 Inj IV 100 mg Q8H RAYNE Administration - Patient Studies Lab Studies: Microbiology Studies 08/16/16 14:11 MRSA Culture (Admit) - Final Nose MRSA NOT DETECTED 08/16/16 15:20 Blood Culture - Preliminary Blood-Venous NO GROWTH AFTER 24 HOURS 08/16/16 14:50 Blood Culture - Preliminary Blood-Venous NO GROWTH AFTER 24 HOURS Lab Studies 08/18/16 08/18/16 08/18/16 Range/Units 06:31 06:31 05:53 WBC 6.5 (4.8-10.8) K/uL RBC 4.23 L (4.40-5.90) Mil/uL Hgb 10.1 L (12.0-18.0) g/dL Hct 33.1 L (35.0-51.0) % MCV 78.3 L (80.0-94.0) fL MCH 24.0 L (27.0-31.0) pg MCHC 30.6 L (33.0-37.0) g/dL RDW 20.4 H (11.5-14.5) % Plt Count 185 (130-400) K/uL MPV 9.9 (7.2-11.7) fL Neut % (Auto) 66.4 (50.0-75.0) % Lymph % (Auto) 21.2 (20.0-40.0) % [place] % (Auto) 6.4 (0.0-10.0) % Eos % (Auto) 4.8 H (0.0-4.0) % Baso % (Auto) 1.2 (0.0-2.0) % Neut # 4.3 (1.8-7.0) K/uL Lymph # 1.4 (1.0-4.3) K/uL [place] # 0.4 (0.0-0.8) K/uL Eos # 0.3 (0.0-0.7) K/uL Baso # 0.1 (0.0-0.2) K/uL Puncture Site Rr pCO2 35 (35-45) mm/Hg pO2 68 L (80-100) mm/Hg HCO3 26.4 (21-28) mmol/L ABG pH 7.47 H (7.35-7.45) ABG Total CO2 26.6 (22-28) mmol/L ABG O2 Saturation 96.4 (95-98) % ABG Base Excess 1.9 (-2.0-3.0) mmol/L ABG Hemoglobin 9.3 L (11.7-17.4) g/dL ABG Carboxyhemoglobin 2.4 H (0.5-1.5) % POC ABG HHb (Measured) 3.5 (0.0-5.0) % ABG Methemoglobin 0.7 (0.0-3.0) % Alberto Test Pos A-a O2 Difference 38.0 mm/Hg Respiratory Index 0.6 Hgb O2 Saturation 93.3 L (95.0-98.0) % FiO2 21.0 % POC Glucose (mg/dL) (65-110) mg/dL Hemoglobin A1c (4.2-6.5) % % Saturation 22 (20-55) 08/17/16 08/17/16 08/17/16 Range/Units 21:42 16:45 12:46 WBC (4.8-10.8) K/uL RBC (4.40-5.90) Mil/uL Hgb (12.0-18.0) g/dL Hct (35.0-51.0) % MCV (80.0-94.0) fL MCH (27.0-31.0) pg MCHC (33.0-37.0) g/dL RDW (11.5-14.5) % Plt Count (130-400) K/uL MPV (7.2-11.7) fL Neut % (Auto) (50.0-75.0) % Lymph % (Auto) (20.0-40.0) % [place] % (Auto) (0.0-10.0) % Eos % (Auto) (0.0-4.0) % Baso % (Auto) (0.0-2.0) % Neut # (1.8-7.0) K/uL Lymph # (1.0-4.3) K/uL [place] # (0.0-0.8) K/uL Eos # (0.0-0.7) K/uL Baso # (0.0-0.2) K/uL Puncture Site pCO2 (35-45) mm/Hg pO2 (80-100) mm/Hg HCO3 (21-28) mmol/L ABG pH (7.35-7.45) ABG Total CO2 (22-28) mmol/L ABG O2 Saturation (95-98) % ABG Base Excess (-2.0-3.0) mmol/L ABG Hemoglobin (11.7-17.4) g/dL ABG Carboxyhemoglobin (0.5-1.5) % POC ABG HHb (Measured) (0.0-5.0) % ABG Methemoglobin (0.0-3.0) % Alberto Test A-a O2 Difference mm/Hg Respiratory Index Hgb O2 Saturation (95.0-98.0) % FiO2 % POC Glucose (mg/dL) 115 H 75 74 (65-110) mg/dL Hemoglobin A1c (4.2-6.5) % % Saturation (20-55) // Range/Units 06:03 WBC (4.8-10.8) K/uL RBC (4.40-5.90) Mil/uL Hgb (12.0-18.0) g/dL Hct (35.0-51.0) % MCV (80.0-94.0) fL MCH (27.0-31.0) pg MCHC (33.0-37.0) g/dL RDW (11.5-14.5) % Plt Count (130-400) K/uL MPV (7.2-11.7) fL Neut % (Auto) (50.0-75.0) % Lymph % (Auto) (20.0-40.0) % [place] % (Auto) (0.0-10.0) % Eos % (Auto) (0.0-4.0) % Baso % (Auto) (0.0-2.0) % Neut # (1.8-7.0) K/uL Lymph # (1.0-4.3) K/uL [place] # (0.0-0.8) K/uL Eos # (0.0-0.7) K/uL Baso # (0.0-0.2) K/uL Puncture Site pCO2 (35-45) mm/Hg pO2 (80-100) mm/Hg HCO3 (21-28) mmol/L ABG pH (7.35-7.45) ABG Total CO2 (22-28) mmol/L ABG O2 Saturation (95-98) % ABG Base Excess (-2.0-3.0) mmol/L ABG Hemoglobin (11.7-17.4) g/dL ABG Carboxyhemoglobin (0.5-1.5) % POC ABG HHb (Measured) (0.0-5.0) % ABG Methemoglobin (0.0-3.0) % Alberto Test A-a O2 Difference mm/Hg Respiratory Index Hgb O2 Saturation (95.0-98.0) % FiO2 % POC Glucose (mg/dL) (65-110) mg/dL Hemoglobin A1c 5.7 (4.2-6.5) % % Saturation (20-55) Laboratory Results - last 24 hr 08/17/16 08/17/16 08/17/16 06:03 12:46 16:45 WBC RBC Hgb Hct MCV MCH MCHC RDW Plt Count MPV Neut % (Auto) Lymph % (Auto) [place] % (Auto) Eos % (Auto) Baso % (Auto) Neut # Lymph # [place] # Eos # Baso # Puncture Site pCO2 pO2 HCO3 ABG pH ABG Total CO2 ABG O2 Saturation ABG Base Excess ABG Hemoglobin ABG Carboxyhemoglobin POC ABG HHb (Measured) ABG Methemoglobin Alberto Test A-a O2 Difference Respiratory Index Hgb O2 Saturation FiO2 POC Glucose (mg/dL) 74 75 Hemoglobin A1c 5.7 % Saturation 08/17/16 08/18/16 08/18/16 21:42 05:53 06:31 WBC 6.5 RBC 4.23 L Hgb 10.1 L Hct 33.1 L MCV 78.3 L MCH 24.0 L MCHC 30.6 L RDW 20.4 H Plt Count 185 MPV 9.9 Neut % (Auto) 66.4 Lymph % (Auto) 21.2 [place] % (Auto) 6.4 Eos % (Auto) 4.8 H Baso % (Auto) 1.2 Neut # 4.3 Lymph # 1.4 [place] # 0.4 Eos # 0.3 Baso # 0.1 Puncture Site Rr pCO2 35 pO2 68 L HCO3 26.4 ABG pH 7.47 H ABG Total CO2 26.6 ABG O2 Saturation 96.4 ABG Base Excess 1.9 ABG Hemoglobin 9.3 L ABG Carboxyhemoglobin 2.4 H POC ABG HHb (Measured) 3.5 ABG Methemoglobin 0.7 Alberto Test Pos A-a O2 Difference 38.0 Respiratory Index 0.6 Hgb O2 Saturation 93.3 L FiO2 21.0 POC Glucose (mg/dL) 115 H Hemoglobin A1c % Saturation 08/18/16 06:31 WBC RBC Hgb Hct MCV MCH MCHC RDW Plt Count MPV Neut % (Auto) Lymph % (Auto) [place] % (Auto) Eos % (Auto) Baso % (Auto) Neut # Lymph # [place] # Eos # Baso # Puncture Site pCO2 pO2 HCO3 ABG pH ABG Total CO2 ABG O2 Saturation ABG Base Excess ABG Hemoglobin ABG Carboxyhemoglobin POC ABG HHb (Measured) ABG Methemoglobin Alberto Test A-a O2 Difference Respiratory Index Hgb O2 Saturation FiO2 POC Glucose (mg/dL) Hemoglobin A1c % Saturation 22 Fingerstick Blood Sugar Results: 115 Review of Systems - Constitutional Constitutional: absent: Fever, Chills - EENT Eyes: As Per HPI. absent: Dry Eye Ears: As Per HPI. absent: Tinnitus, Dizziness Nose/Mouth/Throat: As Per HPI. absent: Sore Throat - Cardiovascular Cardiovascular: As Per HPI. absent: Chest Pain, Dyspnea, Palpitations - Respiratory Respiratory: As Per HPI. absent: Cough, Wheezing, Chest Congestion - Gastrointestinal Gastrointestinal: As Per HPI. absent: Abdominal Pain, Constipation, Diarrhea, Nausea, Vomiting - Genitourinary Genitourinary: Other (had HD today as per [facility] schedule) - Musculoskeletal Musculoskeletal: As Par HPI. absent: Back Pain, Numbness, Tingling - Integumentary Integumentary: As Per HPI. absent: Rash - Neurological Neurological: As Per HPI, Weakness, Other (lethargic but easily arousable). absent: Dizziness, Headaches - Endocrine Endocrine: As Per HPI. absent: Polydipsia, Polyphagia, Polyuria - Hematologic/Lymphatic Hematologic: As Per HPI. absent: Easy Bleeding, Easy Bruising, Lymphadenopathy Critical Care Progress Note - Nutrition Nutrition: Nutrition Category Date Time Status Liquid Diet [DIET] Diets 08/17/16 Dinner Active Assessment/Plan - Assessment and Plan (Free Text) Assessment: 41 year old male PMHx ESRD on HD TTS, HTN, secondary hyperparathyroidism presented s/p cardiac arrest at HD center Plan: Neuro -patient had 2 seizures in ER and was given Ativan 2mg x 2 in ER -likely hypoxic seizure -f/u EEG -CT head: unremarkable -lethargic but easily arousable this AM -Thiamine 100mg iv q8 -neuro following Dr. Negrete Cardiovascular -Patient s/p cardiac arrest and 1 defibrillation in HD center -Patient scheduled for cardiac cath tomorrow 08/19 depending on mental status -lipid panel TG 700 Chol 108 LDL 46 HDL 25 -troponin 0.2410 -f/u repeat PATRICK with EKG -proBNP 14811 -Echo 08/17: LV severely dilated; normal LV thickness; EF 30-35% extensive akinesia of septal, inferior, inferoapical, apex; CAD; no mural clots seen; Transmitral flow pattern is Grade II pseudonormal filling dynamics; LA pressure mod elevated; LA volume index is severely increased; RV systolic fxn mildly reduced; LA severely dilated; Sclerotic mitral leaflets; calcified posterior mitral leaflet; MR mod to severe; Pulm systolic pressures is underestimated -As per Dr Maza patient to receive ICD after cardiac cath -D dimer +936 -V/Q scan low probability -venous dopplers negative b/l -ASA 81mg po daily -Plavix 75mg po daily -Crestor 10mg po hs -Metoprolol tartate 12.5mg po bid -Dr Haynes consulted -Dr Maza consulted Respiratory -extubated this AM -on NC 3L -CXR: mild venous congestion; patchy L basilar airspace opacity; lucency along R heart border which may represent artifact; R hilar prominence; persistent R paratracheal airspace opacity may represent prominent vascularture; circumferential pleural thickening in R hemithorax GI -Colace 100mg po bid -Senna 8.6mg po hs Renal -ESRD on HD TTS -Phoslo 1334mg po TIDCC -Dr Bunch consulted Heme -Anemia of chronic disease -Procrit 10,000U IV TTS -H&H stable Endo -HgbA1c 5.7 -no acute issues ID -blood culture prelim negative -sputum culture: no growth DVT ppx: Heparin 5000u sc q12; SCDs GI ppx: Pepcid 20mg ivp daily Code status: full code Case discussed with Dr. Ann Garcia PGY2 <Jw Juarez - Last Filed: 08/18/16 18:45> CCU Objective - Vital Signs / Intake & Output Vital Signs (Last 4 hours): Vital Signs Temp Pulse Pulse Resp BP BP Pulse Ox 08/18/16 17:40 100 H 16 158/95 H 100 08/18/16 17:24 101 H 17 158/95 H 100 08/18/16 17:20 99 H 15 156/104 H 100 08/18/16 17:09 98 H 16 156/104 H 97 08/18/16 17:00 99 H 102 H 15 164/111 H 99 08/18/16 16:54 101 H 15 164/111 H 90 L 08/18/16 16:40 103 H 107 H 14 163/102 H 163/102 H 92 L 08/18/16 16:24 101 H 16 156/109 H 93 L 08/18/16 16:20 98 H 15 156/106 H 100 08/18/16 16:09 99 H 16 147/105 H 97 08/18/16 16:00 99.2 F 103 H 98 H 15 147/105 H 100 08/18/16 15:55 102 H 17 155/102 H 100 08/18/16 15:39 101 H 16 159/107 H 100 08/18/16 15:30 77 15 156/105 H 100 08/18/16 15:24 100 H 16 156/105 H 100 08/18/16 15:09 99 H 16 149/96 H 100 08/18/16 15:00 105 H 104 H 12 144/95 H 100 08/18/16 14:54 101 H 18 144/95 H Intake and Output (Last 8hrs): Intake & Output 08/18/16 08/18/16 08/18/16 06:59 14:59 22:59 Intake Total 50 220 Output Total 0 0 Balance 50 220 0 Weight 204 lb 98 lb 1.6 oz Intake: Oral 50 220 Output: Emesis 0 0 Other: # Bowel Movements 0 0 0 - Medications Active Medications: Active Medications Generic Name Dose Route Start Last Admin Trade Name Freq PRN Reason Stop Dose Admin Aspirin 81 mg 08/16/16 15:15 08/18/16 10:34 Aspirin Chewable PO 81 mg DAILY [facility] Administration Calcium Acetate 1,334 mg 08/17/16 14:00 08/18/16 17:11 Phoslo PO 1,334 mg TIDCC [facility] Administration Clopidogrel Bisulfate 75 mg 08/16/16 15:15 08/18/16 10:34 Plavix PO 75 mg DAILY [facility] Administration Docusate Sodium 100 mg 08/18/16 18:00 08/18/16 17:35 Colace PO 100 mg BID RAYNE Administration Epoetin Imtiaz 10,000 unit 08/18/16 10:00 08/18/16 17:33 Procrit IV 10,000 unit TTS RAYNE Administration Famotidine 20 mg 08/16/16 14:45 08/18/16 10:35 Pepcid IVP 20 mg DAILY RAYNE Administration Heparin Sodium (Porcine) 5,000 units 08/16/16 22:00 08/18/16 10:35 Heparin SC 5,000 units Q12 RAYNE Administration Metoprolol Tartrate 12.5 mg 08/17/16 10:00 08/18/16 11:00 Lopressor PO Not Given Q12 RAYNE Rosuvastatin Calcium 10 mg 08/16/16 22:00 08/17/16 21:43 Crestor PO 10 mg HS RAYNE Administration Sennosides 8.6 mg 08/18/16 22:00 Senokot Tab PO HS RAYNE Thiamine HCl 100 mg 08/17/16 12:00 08/18/16 12:58 Vitamin B1 Inj IV 100 mg Q8H RAYNE Administration - Patient Studies Lab Studies: Microbiology Studies 08/16/16 15:20 Blood Culture - Preliminary Blood-Venous NO GROWTH AFTER 48 HOURS 08/16/16 14:50 Blood Culture - Preliminary Blood-Venous NO GROWTH AFTER 48 HOURS 08/16/16 14:38 Gram Stain - Final Trachasp Sputum Culture - Final NORMAL ORAL CUBA 08/16/16 14:11 MRSA Culture (Admit) - Final Nose MRSA NOT DETECTED Lab Studies 08/18/16 08/18/16 08/18/16 Range/Units 16:38 11:41 07:10 WBC (4.8-10.8) K/uL RBC (4.40-5.90) Mil/uL Hgb (12.0-18.0) g/dL Hct (35.0-51.0) % MCV (80.0-94.0) fL MCH (27.0-31.0) pg MCHC (33.0-37.0) g/dL RDW (11.5-14.5) % Plt Count (130-400) K/uL MPV (7.2-11.7) fL Neut % (Auto) (50.0-75.0) % Lymph % (Auto) (20.0-40.0) % [place] % (Auto) (0.0-10.0) % Eos % (Auto) (0.0-4.0) % Baso % (Auto) (0.0-2.0) % Neut # (1.8-7.0) K/uL Lymph # (1.0-4.3) K/uL [place] # (0.0-0.8) K/uL Eos # (0.0-0.7) K/uL Baso # (0.0-0.2) K/uL Puncture Site pCO2 (35-45) mm/Hg pO2 (80-100) mm/Hg HCO3 (21-28) mmol/L ABG pH (7.35-7.45) ABG Total CO2 (22-28) mmol/L ABG O2 Saturation (95-98) % ABG Base Excess (-2.0-3.0) mmol/L ABG Hemoglobin (11.7-17.4) g/dL ABG Carboxyhemoglobin (0.5-1.5) % POC ABG HHb (Measured) (0.0-5.0) % ABG Methemoglobin (0.0-3.0) % Alberto Test A-a O2 Difference mm/Hg Respiratory Index Hgb O2 Saturation (95.0-98.0) % FiO2 % Sodium (132-148) mmol/L Potassium (3.6-5.2) mmol/L Chloride (98-107) mmol/L Carbon Dioxide (22-30) mmol/L Anion Gap (10-20) BUN (9-20) mg/dL Creatinine (0.8-1.5) MG/DL Est GFR ( Amer) Est GFR (Non-Af Amer) POC Glucose (mg/dL) 92 113 H 96 (65-110) mg/dL Random Glucose (75-110) mg/dL Calcium (8.6-10.4) mg/dl Phosphorus (2.5-4.5) mg/dL Magnesium (1.6-2.3) mg/dL % Saturation (20-55) Ferritin ng/mL Total Bilirubin (0.2-1.3) mg/dL AST (17-59) U/L ALT (21-72) U/L Alkaline Phosphatase (38-126) U/L Total Protein (6.3-8.3) g/dL Albumin (3.5-5.0) g/dL Globulin (2.2-3.9) gm/dL Albumin/Globulin Ratio (1.0-2.1) 08/18/16 08/18/16 08/18/16 Range/Units 06:31 06:31 06:31 WBC 6.5 (4.8-10.8) K/uL RBC 4.23 L (4.40-5.90) Mil/uL Hgb 10.1 L (12.0-18.0) g/dL Hct 33.1 L (35.0-51.0) % MCV 78.3 L (80.0-94.0) fL MCH 24.0 L (27.0-31.0) pg MCHC 30.6 L (33.0-37.0) g/dL RDW 20.4 H (11.5-14.5) % Plt Count 185 (130-400) K/uL MPV 9.9 (7.2-11.7) fL Neut % (Auto) 66.4 (50.0-75.0) % Lymph % (Auto) 21.2 (20.0-40.0) % [place] % (Auto) 6.4 (0.0-10.0) % Eos % (Auto) 4.8 H (0.0-4.0) % Baso % (Auto) 1.2 (0.0-2.0) % Neut # 4.3 (1.8-7.0) K/uL Lymph # 1.4 (1.0-4.3) K/uL [place] # 0.4 (0.0-0.8) K/uL Eos # 0.3 (0.0-0.7) K/uL Baso # 0.1 (0.0-0.2) K/uL Puncture Site pCO2 (35-45) mm/Hg pO2 (80-100) mm/Hg HCO3 (21-28) mmol/L ABG pH (7.35-7.45) ABG Total CO2 (22-28) mmol/L ABG O2 Saturation (95-98) % ABG Base Excess (-2.0-3.0) mmol/L ABG Hemoglobin (11.7-17.4) g/dL ABG Carboxyhemoglobin (0.5-1.5) % POC ABG HHb (Measured) (0.0-5.0) % ABG Methemoglobin (0.0-3.0) % Alberto Test A-a O2 Difference mm/Hg Respiratory Index Hgb O2 Saturation (95.0-98.0) % FiO2 % Sodium 137 (132-148) mmol/L Potassium 4.6 (3.6-5.2) mmol/L Chloride 93 L (98-107) mmol/L Carbon Dioxide 26 (22-30) mmol/L Anion Gap 23 H (10-20) BUN 60 H (9-20) mg/dL Creatinine 12.3 H* D (0.8-1.5) MG/DL Est GFR ( Amer) 5 Est GFR (Non-Af Amer) 5 POC Glucose (mg/dL) (65-110) mg/dL Random Glucose 79 (75-110) mg/dL Calcium 10.4 (8.6-10.4) mg/dl Phosphorus 6.5 H (2.5-4.5) mg/dL Magnesium 2.5 H (1.6-2.3) mg/dL % Saturation 22 (20-55) Ferritin 922.0 ng/mL Total Bilirubin 0.8 (0.2-1.3) mg/dL AST 35 (17-59) U/L ALT 23 (21-72) U/L Alkaline Phosphatase 316 H (38-126) U/L Total Protein 6.5 (6.3-8.3) g/dL Albumin 3.5 (3.5-5.0) g/dL Globulin 3.0 (2.2-3.9) gm/dL Albumin/Globulin Ratio 1.2 (1.0-2.1) 08/18/16 08/17/16 Range/Units 05:53 21:42 WBC (4.8-10.8) K/uL RBC (4.40-5.90) Mil/uL Hgb (12.0-18.0) g/dL Hct (35.0-51.0) % MCV (80.0-94.0) fL MCH (27.0-31.0) pg MCHC (33.0-37.0) g/dL RDW (11.5-14.5) % Plt Count (130-400) K/uL MPV (7.2-11.7) fL Neut % (Auto) (50.0-75.0) % Lymph % (Auto) (20.0-40.0) % [place] % (Auto) (0.0-10.0) % Eos % (Auto) (0.0-4.0) % Baso % (Auto) (0.0-2.0) % Neut # (1.8-7.0) K/uL Lymph # (1.0-4.3) K/uL [place] # (0.0-0.8) K/uL Eos # (0.0-0.7) K/uL Baso # (0.0-0.2) K/uL Puncture Site Rr pCO2 35 (35-45) mm/Hg pO2 68 L (80-100) mm/Hg HCO3 26.4 (21-28) mmol/L ABG pH 7.47 H (7.35-7.45) ABG Total CO2 26.6 (22-28) mmol/L ABG O2 Saturation 96.4 (95-98) % ABG Base Excess 1.9 (-2.0-3.0) mmol/L ABG Hemoglobin 9.3 L (11.7-17.4) g/dL ABG Carboxyhemoglobin 2.4 H (0.5-1.5) % POC ABG HHb (Measured) 3.5 (0.0-5.0) % ABG Methemoglobin 0.7 (0.0-3.0) % Alberto Test Pos A-a O2 Difference 38.0 mm/Hg Respiratory Index 0.6 Hgb O2 Saturation 93.3 L (95.0-98.0) % FiO2 21.0 % Sodium (132-148) mmol/L Potassium (3.6-5.2) mmol/L Chloride (98-107) mmol/L Carbon Dioxide (22-30) mmol/L Anion Gap (10-20) BUN (9-20) mg/dL Creatinine (0.8-1.5) MG/DL Est GFR ( Amer) Est GFR (Non-Af Amer) POC Glucose (mg/dL) 115 H (65-110) mg/dL Random Glucose (75-110) mg/dL Calcium (8.6-10.4) mg/dl Phosphorus (2.5-4.5) mg/dL Magnesium (1.6-2.3) mg/dL % Saturation (20-55) Ferritin ng/mL Total Bilirubin (0.2-1.3) mg/dL AST (17-59) U/L ALT (21-72) U/L Alkaline Phosphatase (38-126) U/L Total Protein (6.3-8.3) g/dL Albumin (3.5-5.0) g/dL Globulin (2.2-3.9) gm/dL Albumin/Globulin Ratio (1.0-2.1) Laboratory Results - last 24 hr 08/17/16 08/18/16 08/18/16 21:42 05:53 06:31 WBC 6.5 RBC 4.23 L Hgb 10.1 L Hct 33.1 L MCV 78.3 L MCH 24.0 L MCHC 30.6 L RDW 20.4 H Plt Count 185 MPV 9.9 Neut % (Auto) 66.4 Lymph % (Auto) 21.2 [place] % (Auto) 6.4 Eos % (Auto) 4.8 H Baso % (Auto) 1.2 Neut # 4.3 Lymph # 1.4 [place] # 0.4 Eos # 0.3 Baso # 0.1 Puncture Site Rr pCO2 35 pO2 68 L HCO3 26.4 ABG pH 7.47 H ABG Total CO2 26.6 ABG O2 Saturation 96.4 ABG Base Excess 1.9 ABG Hemoglobin 9.3 L ABG Carboxyhemoglobin 2.4 H POC ABG HHb (Measured) 3.5 ABG Methemoglobin 0.7 Alberto Test Pos A-a O2 Difference 38.0 Respiratory Index 0.6 Hgb O2 Saturation 93.3 L FiO2 21.0 Sodium Potassium Chloride Carbon Dioxide Anion Gap BUN Creatinine Est GFR ( Amer) Est GFR (Non-Af Amer) POC Glucose (mg/dL) 115 H Random Glucose Calcium Phosphorus Magnesium % Saturation Ferritin Total Bilirubin AST ALT Alkaline Phosphatase Total Protein Albumin Globulin Albumin/Globulin Ratio 08/18/16 08/18/16 08/18/16 06:31 06:31 07:10 WBC RBC Hgb Hct MCV MCH MCHC RDW Plt Count MPV Neut % (Auto) Lymph % (Auto) [place] % (Auto) Eos % (Auto) Baso % (Auto) Neut # Lymph # [place] # Eos # Baso # Puncture Site pCO2 pO2 HCO3 ABG pH ABG Total CO2 ABG O2 Saturation ABG Base Excess ABG Hemoglobin ABG Carboxyhemoglobin POC ABG HHb (Measured) ABG Methemoglobin Alberto Test A-a O2 Difference Respiratory Index Hgb O2 Saturation FiO2 Sodium 137 Potassium 4.6 Chloride 93 L Carbon Dioxide 26 Anion Gap 23 H BUN 60 H Creatinine 12.3 H* D Est GFR ( Amer) 5 Est GFR (Non-Af Amer) 5 POC Glucose (mg/dL) 96 Random Glucose 79 Calcium 10.4 Phosphorus 6.5 H Magnesium 2.5 H % Saturation 22 Ferritin 922.0 Total Bilirubin 0.8 AST 35 ALT 23 Alkaline Phosphatase 316 H Total Protein 6.5 Albumin 3.5 Globulin 3.0 Albumin/Globulin Ratio 1.2 08/18/16 08/18/16 11:41 16:38 WBC RBC Hgb Hct MCV MCH MCHC RDW Plt Count MPV Neut % (Auto) Lymph % (Auto) [place] % (Auto) Eos % (Auto) Baso % (Auto) Neut # Lymph # [place] # Eos # Baso # Puncture Site pCO2 pO2 HCO3 ABG pH ABG Total CO2 ABG O2 Saturation ABG Base Excess ABG Hemoglobin ABG Carboxyhemoglobin POC ABG HHb (Measured) ABG Methemoglobin Alberto Test A-a O2 Difference Respiratory Index Hgb O2 Saturation FiO2 Sodium Potassium Chloride Carbon Dioxide Anion Gap BUN Creatinine Est GFR ( Amer) Est GFR (Non-Af Amer) POC Glucose (mg/dL) 113 H 92 Random Glucose Calcium Phosphorus Magnesium % Saturation Ferritin Total Bilirubin AST ALT Alkaline Phosphatase Total Protein Albumin Globulin Albumin/Globulin Ratio Critical Care Progress Note - Nutrition Nutrition: Nutrition Category Date Time Status NPO Diet [DIET] Diets 08/19/16 Breakfast Active Renal Diet [DIET] Diets 08/18/16 Breakfast Active Attending/Attestation - Attestation I have personally seen and examined this patient.: Yes I have fully participated in the care of the patient.: Yes I have reviewed all pertinent clinical information: Yes Notes (Text): 08/18/16 18:45 Today: July The Patient was seen and examined at the bedside, Medical records reviewed, all clinical/lab/hemodynamic/radiographic data were reviewed and management issues were discussed and formulated, Events reviewed Pain issues, skin care, head of the bed elevation, glycemic control were addressed. Agree with above treatment plans as transcribed in Dr. Hester note
--- NOTE | 2016-08-18 10:24 | VASCLAB ---
PROCEDURE: Lower Extremity Venous Duplex Exam. HISTORY: Edema PRIORS: None. TECHNIQUE: Bilateral common femoral, femoral, popliteal and posterior tibial, peroneal and great saphenous veins were evaluated. Flow was assessed with color Doppler, compressibility, assessment of phasic flow and augmentation response. Report prepared by RAJIV Graham FINDINGS: RIGHT: 1. Common Femoral Vein: 1.1. Not tested/ dialysis catheter in area. 2. Femoral Vein: (mid and distal only) 2.1. Compressibility - Fully compressible: Thrombus - None : Flow - Phasic: Augmentation -Normal: Reflux - None. 3. Popliteal Vein: 3.1. Compressibility - Fully compressible: Thrombus - None : Flow - Phasic: Augmentation -Normal: Reflux - None. 4. Posterior Tibial Vein: 4.1. Compressibility - Fully compressible: Thrombus - None: Flow - Phasic: Augmentation -Normal: Reflux - None. 5. Peroneal Vein: 5.1. Compressibility - Fully compressible: Thrombus - None: Flow - Phasic: Augmentation -Normal: Reflux - None. 6. Great Saphenous Vein: 6.1. Compressibility - Fully compressible: Thrombus - None: Flow - Phasic: Augmentation - Normal: Reflux - None. LEFT: 1. Common Femoral Vein: 1.1. Compressibility - Fully compressible: Thrombus - None: Flow - Phasic: Augmentation -Normal: Reflux - None. 2. Femoral Vein: 2.1. Compressibility - Fully compressible: Thrombus - None: Flow - Phasic: Augmentation -Normal: Reflux - None. 3. Popliteal Vein: 3.1. Compressibility - Fully compressible: Thrombus - None : Flow - Phasic: Augmentation -Normal: Reflux - None. 4. Posterior Tibial Vein: 4.1. Compressibility - Fully compressible: Thrombus - None: Flow - Phasic: Augmentation -Normal: Reflux - None. 5. Peroneal Vein: 5.1. Compressibility - Fully compressible: Thrombus - None: Flow - Phasic: Augmentation -Normal: Reflux - None. 6. Great Saphenous Vein: 6.1. Compressibility - Fully compressible: Thrombus - None: Flow - Phasic: Augmentation - Normal: Reflux - None. OTHER FINDINGS: Right: None significant. Left: None significant. IMPRESSION: Right: No evidence of deep or superficial vein thrombosis of the right lower extremity, for the examined veins. Left: No evidence of deep or superficial vein thrombosis of the left lower extremity. Normal valve function noted of the left side.
--- NOTE | 2016-08-18 11:15 | NM ---
COMPARISON: August 17, 2016. LOWER EXTREMITY DUPLEX VENOUS SONOGRAPHY. August 17, 2016. SINGLE-VIEW PORTABLE CHEST TECHNIQUE: 9.1 mCi technetium 99-m Xe-133 Gas. 3.9 mCI technetium 99-m MAA administered intravenously. FINDINGS: VENTILATION COMPONENT: Normal. PERFUSION COMPONENT: Heterogeneous distribution of radionuclide. No geographic, segmental, lobar abnormalities apparent on the present examination. IMPRESSION: Low probability ventilation perfusion scan for pulmonary embolism.
--- NOTE | 2016-08-18 13:05 | CP.PCM.PN ---
<Nicolás Turcios - Last Filed: 08/18/16 13:03> Subjective - Date & Time of Evaluation Date of Evaluation: 08/18/16 Time of Evaluation: 13:03 - Subjective Subjective: Progress note for Dr. Maza Pt seen and examined at bedside. Pt doing well overnight with no acute events. Pt still remains lethargic today with no complaints. Family at bedside. Denies CP, SOB, N/V/D. Objective - Vital Signs/Intake and Output Vital Signs (last 24 hours): Temp Pulse Resp BP Pulse Ox 97.7 F 95 H 21 140/98 H 99 08/18/16 08:00 08/18/16 07:55 08/18/16 07:55 08/18/16 07:55 08/18/16 07:55 Intake and Output: 08/18/16 08/18/16 06:59 18:59 Intake Total 470 Balance 470 - Medications Medications: Current Medications Aspirin (Aspirin Chewable) 81 mg PO DAILY ON [facility] OF [facility] Last Admin: 08/18/16 10:34 Dose: 81 mg Calcium Acetate (Phoslo) 1,334 mg PO TIDCC ON LICENSE OF [facility] Last Admin: 08/18/16 12:58 Dose: 1,334 mg Clopidogrel Bisulfate (Plavix) 75 mg PO DAILY ON [facility] OF [facility] Last Admin: 08/18/16 10:34 Dose: 75 mg Docusate Sodium (Colace) 100 mg PO BID ON LICENSE OF [facility] Epoetin Imtiaz (Procrit) 10,000 unit IV TTS ON LICENSE OF [facility] Famotidine (Pepcid) 20 mg IVP DAILY ON [facility] OF [facility] Last Admin: 08/18/16 10:35 Dose: 20 mg Heparin Sodium (Porcine) (Heparin) 5,000 units SC Q12 ON [facility] OF [facility] Last Admin: 08/18/16 10:35 Dose: 5,000 units Metoprolol Tartrate (Lopressor) 12.5 mg PO Q12 ON [facility] OF [facility] Last Admin: 08/18/16 11:00 Dose: Not Given Rosuvastatin Calcium (Crestor) 10 mg PO HS ON [facility] OF [facility] Last Admin: 08/17/16 21:43 Dose: 10 mg Sennosides (Senokot Tab) 8.6 mg PO HS ON [facility] OF [facility] Thiamine HCl (Vitamin B1 Inj) 100 mg IV Q8H ON LICENSE OF [facility] Last Admin: 08/18/16 12:58 Dose: 100 mg - Labs Labs: 08/18/16 06:31 08/18/16 06:31 PT 12.5 SECONDS (9.7-12.2) H 08/16/16 10:29 INR 1.1 08/16/16 10:29 APTT 29 SECONDS (21-34) D 08/17/16 06:03 - Constitutional Appears: Non-toxic, No Acute Distress - Head Exam Head Exam: ATRAUMATIC, NORMAL INSPECTION, NORMOCEPHALIC - Respiratory Exam Respiratory Exam: Clear to Ausculation Bilateral, NORMAL BREATHING PATTERN - Cardiovascular Exam Cardiovascular Exam: RRR, +S1, +S2 - GI/Abdominal Exam GI & Abdominal Exam: Soft, Normal Bowel Sounds. absent: Tenderness - Extremities Exam Extremities Exam: absent: Calf Tenderness, Pedal Edema - Neurological Exam Neurological Exam: Alert, Awake, Oriented x3 - Skin Skin Exam: Intact, Normal Color, Warm Assessment and Plan (1) Cardiac arrest Assessment & Plan: Pt will receive ICD due to low EF and recent hx of cardiac arrest Pt not currently scheduled Continue current medical management Status: Acute <Ashlyn Maza - Last Filed: 09/23/16 07:57> Objective - Vital Signs/Intake and Output Vital Signs (last 24 hours): Temp Pulse Resp BP Pulse Ox 98.4 F 105 H 18 131/91 H 100 08/22/16 19:00 08/22/16 19:00 08/22/16 19:00 08/22/16 19:00 08/22/16 19:00 - Labs Labs: 08/22/16 08:09 08/22/16 08:09 PT 12.5 SECONDS (9.7-12.2) H 08/16/16 10:29 INR 1.1 08/16/16 10:29 APTT 29 SECONDS (21-34) D 08/17/16 06:03 Attending/Attestation - Attestation I have personally seen and examined this patient.: Yes I have fully participated in the care of the patient.: Yes I have reviewed all pertinent clinical information, including history, physical exam and plan: Yes Notes (Text): 09/23/16 07:57 Pt ICD candidate s/p cardiac arrest and low ef with chf
--- NOTE | 2016-08-18 14:39 | CP.PCM.PN ---
Subjective - Date & Time of Evaluation Date of Evaluation: 08/18/16 Time of Evaluation: 14:38 - Subjective Subjective: seen and examined lethargic but easily arousable cardiac eval noted Objective - Vital Signs/Intake and Output Vital Signs (last 24 hours): Temp Pulse Resp BP Pulse Ox 97.7 F 97 H 12 141/97 H 98 08/18/16 08:00 08/18/16 13:00 08/18/16 13:00 08/18/16 12:54 08/18/16 13:00 Intake and Output: 08/18/16 08/18/16 06:59 18:59 Intake Total 470 220 Output Total 0 Balance 470 220 - Medications Medications: Current Medications Aspirin (Aspirin Chewable) 81 mg PO DAILY [facility] Last Admin: 08/18/16 10:34 Dose: 81 mg Calcium Acetate (Phoslo) 1,334 mg PO TIDCC [facility] Last Admin: 08/18/16 12:58 Dose: 1,334 mg Clopidogrel Bisulfate (Plavix) 75 mg PO DAILY [facility] Last Admin: 08/18/16 10:34 Dose: 75 mg Docusate Sodium (Colace) 100 mg PO BID [facility] Epoetin Imtiaz (Procrit) 10,000 unit IV TTS [facility] Famotidine (Pepcid) 20 mg IVP DAILY [facility] Last Admin: 08/18/16 10:35 Dose: 20 mg Heparin Sodium (Porcine) (Heparin) 5,000 units SC Q12 [facility] Last Admin: 08/18/16 10:35 Dose: 5,000 units Metoprolol Tartrate (Lopressor) 12.5 mg PO Q12 [facility] Last Admin: 08/18/16 11:00 Dose: Not Given Rosuvastatin Calcium (Crestor) 10 mg PO HS [facility] Last Admin: 08/17/16 21:43 Dose: 10 mg Sennosides (Senokot Tab) 8.6 mg PO HS [facility] Thiamine HCl (Vitamin B1 Inj) 100 mg IV Q8H [facility] Last Admin: 08/18/16 12:58 Dose: 100 mg - Labs Labs: 08/18/16 06:31 08/18/16 06:31 PT 12.5 SECONDS (9.7-12.2) H 08/16/16 10:29 INR 1.1 08/16/16 10:29 APTT 29 SECONDS (21-34) D 08/17/16 06:03 - Constitutional Appears: Non-toxic, No Acute Distress, Chronically Ill - Eye Exam Eye Exam: Normal appearance - ENT Exam ENT Exam: Mucous Membranes Moist, Normal Exam - Neck Exam Neck Exam: Normal Inspection - Respiratory Exam Respiratory Exam: Clear to Ausculation Bilateral, NORMAL BREATHING PATTERN - Cardiovascular Exam Cardiovascular Exam: REGULAR RHYTHM, RRR - GI/Abdominal Exam GI & Abdominal Exam: Distended, Soft, Diminished Bowel Sounds - Extremities Exam Extremities Exam: Normal Inspection (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
[2016-08-18] MEDS: Epoetin Alfa 10,000 unit/ml Dialysis IV SCH (17:33)
--- NOTE | 2016-08-18 21:42 | CP.PCM.PN ---
Subjective - Date & Time of Evaluation Date of Evaluation: 08/18/16 Time of Evaluation: 09:40 - Subjective Subjective: Patient seen and evaluated Still some what lethargic Hemodynamically stable Possible cath tomorrow or Monday Objective - Vital Signs/Intake and Output Vital Signs (last 24 hours): Temp Pulse Resp BP Pulse Ox 99.2 F 100 H 16 158/95 H 100 08/18/16 16:00 08/18/16 17:40 08/18/16 17:40 08/18/16 17:40 08/18/16 17:40 Intake and Output: 08/18/16 08/19/16 18:59 06:59 Intake Total 220 Output Total 0 Balance 220 - Medications Medications: Current Medications Aspirin (Aspirin Chewable) 81 mg PO DAILY [facility] Last Admin: 08/18/16 10:34 Dose: 81 mg Calcium Acetate (Phoslo) 1,334 mg PO TIDCC [facility] Last Admin: 08/18/16 17:11 Dose: 1,334 mg Clopidogrel Bisulfate (Plavix) 75 mg PO DAILY [facility] Last Admin: 08/18/16 10:34 Dose: 75 mg Docusate Sodium (Colace) 100 mg PO BID [facility] Last Admin: 08/18/16 17:35 Dose: 100 mg Epoetin Imtiaz (Procrit) 10,000 unit IV TTS [facility] Last Admin: 08/18/16 17:33 Dose: 10,000 unit Famotidine (Pepcid) 20 mg IVP DAILY [facility] Last Admin: 08/18/16 10:35 Dose: 20 mg Heparin Sodium (Porcine) (Heparin) 5,000 units SC Q12 [facility] Last Admin: 08/18/16 10:35 Dose: 5,000 units Metoprolol Tartrate (Lopressor) 12.5 mg PO Q12 [facility] Last Admin: 08/18/16 11:00 Dose: Not Given Rosuvastatin Calcium (Crestor) 10 mg PO HS [facility] Last Admin: 08/17/16 21:43 Dose: 10 mg Sennosides (Senokot Tab) 8.6 mg PO HS [facility] Thiamine HCl (Vitamin B1 Inj) 100 mg IV Q8H [facility] Last Admin: 08/18/16 12:58 Dose: 100 mg - Labs Labs: 08/18/16 06:31 08/18/16 06:31 PT 12.5 SECONDS (9.7-12.2) H 08/16/16 10:29 INR 1.1 08/16/16 10:29 APTT 29 SECONDS (21-34) D 08/17/16 06:03
--- NOTE | 2016-08-19 03:48 | CP.PCM.PN ---
<Renetta Montes - Last Filed: 08/19/16 03:44> Subjective - Date & Time of Evaluation Date of Evaluation: 08/19/16 Time of Evaluation: 03:40 - Subjective Subjective: [facility] called 3:40 AM. Patient states he was sitting in the chair playing a game on his tablet. He tried to get up and slipped on the floor. He stated "I hit my butt". He did not pass out and did not hit his head. RN entered the room and saw the patient sitting on the floor. HR 95, BP 144/96, Saturating 98% on room air. RR 16. Patient stated only mild pain on butt. Denied chest pain palpitations SOB, dizziness, N/V, back pain or tenderness.Patient is moving all extremities, no contusions. No tenderness over hip joints. He is awake and oriented. Patient helped into bed. is at bedside. Will monitor. Objective - Vital Signs/Intake and Output Vital Signs (last 24 hours): Temp Pulse Resp BP Pulse Ox 99.4 F 96 H 13 135/95 H 96 08/19/16 00:00 08/19/16 02:24 08/19/16 02:24 08/19/16 02:24 08/19/16 02:24 Intake and Output: 08/18/16 08/19/16 18:59 06:59 Intake Total 220 100 Output Total 0 Balance 220 100 - Medications Medications: Current Medications Aspirin (Aspirin Chewable) 81 mg PO DAILY [facility] Last Admin: 08/18/16 10:34 Dose: 81 mg Calcium Acetate (Phoslo) 1,334 mg PO TIDCC [facility] Last Admin: 08/18/16 17:11 Dose: 1,334 mg Clopidogrel Bisulfate (Plavix) 75 mg PO DAILY [facility] Last Admin: 08/18/16 10:34 Dose: 75 mg Docusate Sodium (Colace) 100 mg PO BID [facility] Last Admin: 08/18/16 17:35 Dose: 100 mg Epoetin Imtiaz (Procrit) 10,000 unit IV TTS [facility] Last Admin: 08/18/16 17:33 Dose: 10,000 unit Famotidine (Pepcid) 20 mg IVP DAILY [facility] Last Admin: 08/18/16 10:35 Dose: 20 mg Heparin Sodium (Porcine) (Heparin) 5,000 units SC Q12 [facility] Last Admin: 08/18/16 22:18 Dose: 5,000 units Metoprolol Tartrate (Lopressor) 12.5 mg PO Q12 [facility] Last Admin: 08/18/16 22:17 Dose: 12.5 mg Rosuvastatin Calcium (Crestor) 10 mg PO HS [facility] Last Admin: 08/18/16 22:19 Dose: 10 mg Sennosides (Senokot Tab) 8.6 mg PO HS [facility] Last Admin: 08/18/16 22:21 Dose: 8.6 mg Thiamine HCl (Vitamin B1 Inj) 100 mg IV Q8H [facility] Last Admin: 08/18/16 20:18 Dose: 100 mg - Labs Labs: 08/18/16 06:31 08/18/16 06:31 PT 12.5 SECONDS (9.7-12.2) H 08/16/16 10:29 INR 1.1 08/16/16 10:29 APTT 29 SECONDS (21-34) D 08/17/16 06:03 <Ariel Gee P - Last Filed: 08/20/16 23:06> Objective - Vital Signs/Intake and Output Vital Signs (last 24 hours): Temp Pulse Resp BP Pulse Ox 97.9 F 88 18 146/88 98 08/20/16 09:10 08/20/16 21:00 08/20/16 09:10 08/20/16 10:40 08/20/16 09:10 - Medications Medications: Current Medications Aspirin (Aspirin Chewable) 81 mg PO DAILY [facility] Last Admin: 08/20/16 14:07 Dose: 81 mg Calcium Acetate (Phoslo) 1,334 mg PO TIDCC [facility] Last Admin: 08/20/16 21:12 Dose: 1,334 mg Clopidogrel Bisulfate (Plavix) 75 mg PO DAILY [facility] Last Admin: 08/20/16 14:08 Dose: 75 mg Docusate Sodium (Colace) 100 mg PO BID [facility] Last Admin: 08/20/16 21:12 Dose: Not Given Epoetin Imtiaz (Procrit) 10,000 unit IV TTS [facility] Last Admin: 08/20/16 10:03 Dose: 10,000 unit Famotidine (Pepcid) 20 mg IVP DAILY [facility] Last Admin: 08/20/16 14:07 Dose: 20 mg Heparin Sodium (Porcine) (Heparin) 5,000 units SC Q12 [facility] Last Admin: 08/20/16 21:11 Dose: 5,000 units Heparin Sodium (Porcine) (Heparin) 2,000 units IVP TTS [facility] Last Admin: 08/20/16 10:40 Dose: 2,000 units Heparin Sodium (Porcine) (Heparin) 4,600 units IVP TTS [facility] Last Admin: 08/20/16 10:41 Dose: 4,600 units Losartan Potassium (Cozaar) 25 mg PO DAILY [facility] Last Admin: 08/20/16 14:07 Dose: 25 mg Metoprolol Tartrate (Lopressor) 12.5 mg PO Q12 [facility] Last Admin: 08/20/16 21:10 Dose: 12.5 mg Rosuvastatin Calcium (Crestor) 10 mg PO HS [facility] Last Admin: 08/20/16 21:10 Dose: 10 mg Sennosides (Senokot Tab) 8.6 mg PO HS [facility] Last Admin: 08/20/16 21:13 Dose: Not Given Thiamine HCl (Vitamin B1 Inj) 100 mg IV Q8H [facility] Last Admin: 08/20/16 21:11 Dose: 100 mg - Labs Labs: 08/20/16 09:38 08/20/16 09:38 PT 12.5 SECONDS (9.7-12.2) H 08/16/16 10:29 INR 1.1 08/16/16 10:29 APTT 29 SECONDS (21-34) D 08/17/16 06:03 Attending/Attestation - Attestation I have personally seen and examined this patient.: Yes I have fully participated in the care of the patient.: Yes I have reviewed all pertinent clinical information, including history, physical exam and plan: Yes
[2016-08-19] MEDS: Thiamine 100 mg/ml Inj IV SCH ×3 (04:00→20:49)
[2016-08-19 06:43] LABS: BASO % 0.6 % (0.0-2.0); EOS # 0.4 K/uL (0.0-0.7); EOS % 6.1 % (0.0-4.0); HEMATOCRIT 31.9 % (35.0-51.0); LYMPH % 15.8 % (20.0-40.0); MEAN CELL VOLUME 78.3 fL (80.0-94.0); MEAN CORPUSCULAR HEMOGLOBIN 23.8 pg (27.0-31.0); MEAN CORPUSCULAR HGB CONC 30.4 g/dL (33.0-37.0); MEAN PLATELET VOLUME 9.6 fL (7.2-11.7); MONO # 0.5 K/uL (0.0-0.8); MONO % 7.7 % (0.0-10.0); RED CELL DISTRIBUTION WIDTH 20.6 % (11.5-14.5); WHITE BLOOD COUNT 6.6 K/uL (4.8-10.8)
[2016-08-19 06:44] LABS: POTASSIUM 3.8 mmol/L (3.6-5.2)
[2016-08-19 06:46] LABS: ALB/GLOB RATIO 1.1 (1.0-2.1); BILIRUBIN,TOTAL 0.7 mg/dL (0.2-1.3); TOTAL PROTEIN 6.1 g/dL (6.3-8.3)
[2016-08-19 06:47] LABS: CALCIUM 10.1 mg/dl (8.6-10.4); MAGNESIUM 2.3 mg/dL (1.6-2.3); PHOSPHOROUS 5.5 mg/dL (2.5-4.5)
--- NOTE | 2016-08-19 07:20 | CP.PCM.PN ---
Subjective - Date & Time of Evaluation Date of Evaluation: 08/18/16 Time of Evaluation: 18:00 - Subjective Subjective: Medical Attending Note; Follow-up: cardiac arrest, seizure, esrd on dialysis Patient seen, examined at bedside. Patient receiving dialysis at bedside. Patient denies acute complaints. Objective - Vital Signs/Intake and Output Vital Signs (last 24 hours): Temp Pulse Resp BP Pulse Ox 98.7 F 98 H 13 144/104 H 100 08/19/16 04:00 08/19/16 06:54 08/19/16 06:54 08/19/16 06:54 08/19/16 06:54 Intake and Output: 08/19/16 08/19/16 06:59 18:59 Intake Total 100 Balance 100 - Medications Medications: Current Medications Aspirin (Aspirin Chewable) 81 mg PO DAILY [facility] Last Admin: 08/18/16 10:34 Dose: 81 mg Calcium Acetate (Phoslo) 1,334 mg PO TIDCC [facility] Last Admin: 08/18/16 17:11 Dose: 1,334 mg Clopidogrel Bisulfate (Plavix) 75 mg PO DAILY [facility] Last Admin: 08/18/16 10:34 Dose: 75 mg Docusate Sodium (Colace) 100 mg PO BID [facility] Last Admin: 08/18/16 17:35 Dose: 100 mg Epoetin Imtiaz (Procrit) 10,000 unit IV TTS [facility] Last Admin: 08/18/16 17:33 Dose: 10,000 unit Famotidine (Pepcid) 20 mg IVP DAILY [facility] Last Admin: 08/18/16 10:35 Dose: 20 mg Heparin Sodium (Porcine) (Heparin) 5,000 units SC Q12 [facility] Last Admin: 08/18/16 22:18 Dose: 5,000 units Metoprolol Tartrate (Lopressor) 12.5 mg PO Q12 [facility] Last Admin: 08/18/16 22:17 Dose: 12.5 mg Rosuvastatin Calcium (Crestor) 10 mg PO HS [facility] Last Admin: 08/18/16 22:19 Dose: 10 mg Sennosides (Senokot Tab) 8.6 mg PO HS [facility] Last Admin: 08/18/16 22:21 Dose: 8.6 mg Thiamine HCl (Vitamin B1 Inj) 100 mg IV Q8H [facility] Last Admin: 08/19/16 04:00 Dose: 100 mg - Labs Labs: 08/19/16 06:22 08/19/16 06:22 PT 12.5 SECONDS (9.7-12.2) H 08/16/16 10:29 INR 1.1 08/16/16 10:29 APTT 29 SECONDS (21-34) D 08/17/16 06:03 - Constitutional Appears: Non-toxic, Younger Than Stated Age, Chronically Ill - Head Exam Head Exam: NORMAL INSPECTION - Eye Exam Eye Exam: EOMI, PERRL - ENT Exam ENT Exam: Mucous Membranes Moist - Respiratory Exam Respiratory Exam: Clear to Ausculation Bilateral, NORMAL BREATHING PATTERN - Cardiovascular Exam Cardiovascular Exam: +S1, +S2 - GI/Abdominal Exam GI & Abdominal Exam: Soft Additional comments: nontender, nondistended, no rebound, no guarding - Extremities Exam Additional comments: no edema, no cyanosis, no clubbing b/l lle - Neurological Exam Neurological Exam: Alert, Awake, Oriented x3 Additional comments: Patient visibly appears tired Negative babinskis' - Psychiatric Exam Psychiatric exam: Flat Affect - Skin Skin Exam: Dry, Intact, Normal Color, Warm Assessment and Plan (1) Cardiac arrest Status: Acute (2) New onset seizure Status: Acute (3) ESRD (end stage renal disease) Status: Chronic (4) HTN (hypertension) Status: Chronic (5) Prophylactic measure Status: Acute - Assessment and Plan (Free Text) Assessment: This is late computer entry for 08/18/16. Patient seen during dialysis session in the afternoon. Discussed with nurse, Annalee, patient is going for cardiac cath with Dr. haynes tomorrow. I have seen the patient is prior admissions. Patient is visibly tired and exhausted. Otherwise, he is normally upright, vibrant, and very local. Assessment and Plan (1) Cardiac arrest; NonStemi Assessment & Plan: Consult: Dr Haynes (Cardiology) on board-->help appreciated-->pending cath Consult: Dr. Maza (cardiology-[facility]) on board-->help appreciated-->will need ICD Patient is going for cardiac cath tomorrow V/Q scan negative for PE Patient s/p cardiac arrest and 1 defibrillation in HD center T, Cholestrol: 108, LDL: 46, HDL: 25 Hgba1c: 5.4--->patient is not diabetic; d/c insulin regimen On Aspirin 81mg PO daily On plavix 75mg PO daily Troponin: 0.2410-->0.3480 proBNP 44976 Echocardiogram (08/17/16): left ventricle severely dilated, normal ventricular wall thickness, EF: 30-35%, extensive akinesia of septal, inferior inferoapical , left atrial pressure moderately elevated, mitral regurgitation moderate to severe Venous doppler: negative dvt Crestor 10mg po hs Metoprolol tartate 12.5mg po bid head CT (08/16/16): no intracranial mass, hemorrhage, or evidence of acute infarct. 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 Status: Acute (2) New onset seizure Assessment & Plan: Neurology (Dr. Negrete) help appreciated Per neurology, likely secondary to cerebral hypoperfusion secondary to cardiac arrest and hypoxia Patient was in dialysis about 2 hours into session during suspected cardiac arrest EEG: mild b/l cerebral dysfunction, no noted seizure activity, per neurology head CT (08/16/16): no intracranial mass, hemorrhage, or evidence of acute infarct. 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 Negrete) help appreciated Status: Acute (3) ESRD (end stage renal disease) Assessment & Plan: Consult: Dr Mata (Nephrology) on board-->help appreciated Status: Chronic (4) HTN (hypertension) Assessment & Plan: Nephrology (Dr. Mata) on board-->help appreciated Lopressor 12.5mg PO Q 12hours ESRD Status: Chronic (5) Prophylactic measure Assessment & Plan: DVT ppx: Heparin 5000 units subq 12hours GI px: pepcid 20mg IV q daily Status: Acute
--- NOTE | 2016-08-19 07:25 | CP.CCUPN ---
<Kacie Garcia - Last Filed: 08/19/16 11:48> CCU Subjective - Physician Review Subjective (Free Text): 08/19/16 11:48 Patient seen and examined at bedside. Events overnight noted. Had HD yesterday as per hS schedule. Patient is AO x 3 but cannot remember events ie having received HD yesterday as per . Patient denies acute headache, dizziness, chest pain, palpitations, SOB, cough, abd pain, nausea, vomiting, bowel complaints, pain/swelling in his legs b/l. He has been NPO since midnight for cardiac cath with Dr. Haynes this AM. Patient complained of being hungry. CCU Objective - Vital Signs / Intake & Output Vital Signs (Last 4 hours): Vital Signs Temp Pulse Resp BP Pulse Ox 08/19/16 06:54 98 H 13 144/104 H 100 08/19/16 06:39 97 H 14 143/96 H 08/19/16 06:24 98 H 14 150/99 H 98 08/19/16 06:09 100 H 18 140/91 H 72 L 08/19/16 06:00 91 H 14 84 L 08/19/16 05:54 94 H 16 128/93 H 95 08/19/16 05:39 92 H 13 135/91 H 93 L 08/19/16 05:24 97 H 13 142/97 H 90 L 08/19/16 05:09 97 H 21 119/66 91 L 08/19/16 05:00 95 H 13 94 L 08/19/16 04:54 93 H 13 128/88 91 L 08/19/16 04:39 94 H 13 127/90 96 08/19/16 04:24 95 H 12 133/96 H 94 L 08/19/16 04:10 92 H 11 L 139/90 100 08/19/16 04:00 98.7 F 98 H 13 98 08/19/16 03:54 95 H 10 L 121/71 100 08/19/16 03:39 102 H 14 144/96 H 90 L Intake and Output (Last 8hrs): Intake & Output 08/18/16 08/19/16 08/19/16 22:59 06:59 14:59 Intake Total 100 0 Output Total 0 Balance 100 0 Intake: Oral 100 0 Output: Emesis 0 Other: # Bowel Movements 0 0 - Physical Exam Head: Positive for: Atraumatic, Normocephalic Pupils: Positive for: PERRL Extroacular Muscles: Positive for: EOMI Conjunctiva: Positive for: Normal. Negative for: Injected, Icteric Mouth: Positive for: Moist Mucous Membranes Nose (External): Positive for: Atraumatic, Other (NC in place 3L) Neck: Positive for: Normal Range of Motion. Negative for: JVD Respiratory/Chest: Negative for: Respiratory Distress, Accessory Muscle Use, Wheezes, Rales, Rhonchi, Tachypneic Cardiovascular: Positive for: Normal S1, S2, Tachycardic. Negative for: Irregular Rhythm Abdomen: Positive for: Normal Bowel Sounds. Negative for: Tenderness, Distention, Peritoneal Signs Upper Extremity: Positive for: Normal Inspection. Negative for: Cyanosis, Edema Lower Extremity: Positive for: Normal Inspection. Negative for: Edema Neurological: Positive for: Speech Normal Skin: Positive for: Warm, Dry, Normal Color Psychiatric: Positive for: Alert, Oriented x 3 - Medications Active Medications: Active Medications Generic Name Dose Route Start Last Admin Trade Name Freq PRN Reason Stop Dose Admin Aspirin 81 mg 08/16/16 15:15 08/18/16 10:34 Aspirin Chewable PO 81 mg DAILY RAYNE Administration Calcium Acetate 1,334 mg 08/17/16 14:00 08/18/16 17:11 Phoslo PO 1,334 mg TIDCC RAYNE Administration Clopidogrel Bisulfate 75 mg 08/16/16 15:15 08/18/16 10:34 Plavix PO 75 mg DAILY RAYNE Administration Docusate Sodium 100 mg 08/18/16 18:00 08/18/16 17:35 Colace PO 100 mg BID RAYNE Administration Epoetin Imtiaz 10,000 unit 08/18/16 10:00 08/18/16 17:33 Procrit IV 10,000 unit TTS RAYNE Administration Famotidine 20 mg 08/16/16 14:45 08/18/16 10:35 Pepcid IVP 20 mg DAILY RAYNE Administration Heparin Sodium (Porcine) 5,000 units 08/16/16 22:00 08/18/16 22:18 Heparin SC 5,000 units Q12 RAYNE Administration Metoprolol Tartrate 12.5 mg 08/17/16 10:00 08/18/16 22:17 Lopressor PO 12.5 mg Q12 RAYNE Administration Rosuvastatin Calcium 10 mg 08/16/16 22:00 08/18/16 22:19 Crestor PO 10 mg HS RAYNE Administration Sennosides 8.6 mg 08/18/16 22:00 08/18/16 22:21 Senokot Tab PO 8.6 mg HS RAYNE Administration Thiamine HCl 100 mg 08/17/16 12:00 08/19/16 04:00 Vitamin B1 Inj IV 100 mg Q8H RAYNE Administration - Patient Studies Lab Studies: Microbiology Studies 08/16/16 15:20 Blood Culture - Preliminary Blood-Venous NO GROWTH AFTER 48 HOURS 08/16/16 14:50 Blood Culture - Preliminary Blood-Venous NO GROWTH AFTER 48 HOURS 08/16/16 14:38 Gram Stain - Final Trachasp Sputum Culture - Final NORMAL ORAL CUBA Lab Studies 08/19/16 08/19/16 08/18/16 Range/Units 06:22 06:22 21:42 WBC 6.6 (4.8-10.8) K/uL RBC 4.07 L (4.40-5.90) Mil/uL Hgb 9.7 L (12.0-18.0) g/dL Hct 31.9 L (35.0-51.0) % MCV 78.3 L (80.0-94.0) fL MCH 23.8 L (27.0-31.0) pg MCHC 30.4 L (33.0-37.0) g/dL RDW 20.6 H (11.5-14.5) % Plt Count 154 (130-400) K/uL MPV 9.6 (7.2-11.7) fL Neut % (Auto) 69.8 (50.0-75.0) % Lymph % (Auto) 15.8 L (20.0-40.0) % Leon % (Auto) 7.7 (0.0-10.0) % Eos % (Auto) 6.1 H (0.0-4.0) % Baso % (Auto) 0.6 (0.0-2.0) % Neut # 4.6 (1.8-7.0) K/uL Lymph # 1.0 (1.0-4.3) K/uL Leon # 0.5 (0.0-0.8) K/uL Eos # 0.4 (0.0-0.7) K/uL Baso # 0.0 (0.0-0.2) K/uL Sodium 136 (132-148) mmol/L Potassium 3.8 (3.6-5.2) mmol/L Chloride 94 L (98-107) mmol/L Carbon Dioxide 26 (22-30) mmol/L Anion Gap 20 (10-20) BUN 39 H (9-20) mg/dL Creatinine 9.1 H* D (0.8-1.5) MG/DL Est GFR ( Amer) 8 Est GFR (Non-Af Amer) 6 POC Glucose (mg/dL) 104 (65-110) mg/dL Random Glucose 87 (75-110) mg/dL Calcium 10.1 (8.6-10.4) mg/dl Phosphorus 5.5 H (2.5-4.5) mg/dL Magnesium 2.3 (1.6-2.3) mg/dL Ferritin ng/mL Total Bilirubin 0.7 (0.2-1.3) mg/dL AST 29 (17-59) U/L ALT 25 (21-72) U/L Alkaline Phosphatase 302 H (38-126) U/L Total Protein 6.1 L (6.3-8.3) g/dL Albumin 3.3 L (3.5-5.0) g/dL Globulin 2.9 (2.2-3.9) gm/dL Albumin/Globulin Ratio 1.1 (1.0-2.1) 08/18/16 08/18/16 08/18/16 Range/Units 16:38 11:41 07:10 WBC (4.8-10.8) K/uL RBC (4.40-5.90) Mil/uL Hgb (12.0-18.0) g/dL Hct (35.0-51.0) % MCV (80.0-94.0) fL MCH (27.0-31.0) pg MCHC (33.0-37.0) g/dL RDW (11.5-14.5) % Plt Count (130-400) K/uL MPV (7.2-11.7) fL Neut % (Auto) (50.0-75.0) % Lymph % (Auto) (20.0-40.0) % Leon % (Auto) (0.0-10.0) % Eos % (Auto) (0.0-4.0) % Baso % (Auto) (0.0-2.0) % Neut # (1.8-7.0) K/uL Lymph # (1.0-4.3) K/uL Leon # (0.0-0.8) K/uL Eos # (0.0-0.7) K/uL Baso # (0.0-0.2) K/uL Sodium (132-148) mmol/L Potassium (3.6-5.2) mmol/L Chloride (98-107) mmol/L Carbon Dioxide (22-30) mmol/L Anion Gap (10-20) BUN (9-20) mg/dL Creatinine (0.8-1.5) MG/DL Est GFR ( Amer) Est GFR (Non-Af Amer) POC Glucose (mg/dL) 92 113 H 96 (65-110) mg/dL Random Glucose (75-110) mg/dL Calcium (8.6-10.4) mg/dl Phosphorus (2.5-4.5) mg/dL Magnesium (1.6-2.3) mg/dL Ferritin ng/mL Total Bilirubin (0.2-1.3) mg/dL AST (17-59) U/L ALT (21-72) U/L Alkaline Phosphatase (38-126) U/L Total Protein (6.3-8.3) g/dL Albumin (3.5-5.0) g/dL Globulin (2.2-3.9) gm/dL Albumin/Globulin Ratio (1.0-2.1) 08/18/16 Range/Units 06:31 WBC (4.8-10.8) K/uL RBC (4.40-5.90) Mil/uL Hgb (12.0-18.0) g/dL Hct (35.0-51.0) % MCV (80.0-94.0) fL MCH (27.0-31.0) pg MCHC (33.0-37.0) g/dL RDW (11.5-14.5) % Plt Count (130-400) K/uL MPV (7.2-11.7) fL Neut % (Auto) (50.0-75.0) % Lymph % (Auto) (20.0-40.0) % Leon % (Auto) (0.0-10.0) % Eos % (Auto) (0.0-4.0) % Baso % (Auto) (0.0-2.0) % Neut # (1.8-7.0) K/uL Lymph # (1.0-4.3) K/uL Leon # (0.0-0.8) K/uL Eos # (0.0-0.7) K/uL Baso # (0.0-0.2) K/uL Sodium 137 (132-148) mmol/L Potassium 4.6 (3.6-5.2) mmol/L Chloride 93 L (98-107) mmol/L Carbon Dioxide 26 (22-30) mmol/L Anion Gap 23 H (10-20) BUN 60 H (9-20) mg/dL Creatinine 12.3 H* D (0.8-1.5) MG/DL Est GFR ( Amer) 5 Est GFR (Non-Af Amer) 5 POC Glucose (mg/dL) (65-110) mg/dL Random Glucose 79 (75-110) mg/dL Calcium 10.4 (8.6-10.4) mg/dl Phosphorus 6.5 H (2.5-4.5) mg/dL Magnesium 2.5 H (1.6-2.3) mg/dL Ferritin 922.0 ng/mL Total Bilirubin 0.8 (0.2-1.3) mg/dL AST 35 (17-59) U/L ALT 23 (21-72) U/L Alkaline Phosphatase 316 H (38-126) U/L Total Protein 6.5 (6.3-8.3) g/dL Albumin 3.5 (3.5-5.0) g/dL Globulin 3.0 (2.2-3.9) gm/dL Albumin/Globulin Ratio 1.2 (1.0-2.1) Laboratory Results - last 24 hr 08/18/16 08/18/16 08/18/16 06:31 07:10 11:41 WBC RBC Hgb Hct MCV MCH MCHC RDW Plt Count MPV Neut % (Auto) Lymph % (Auto) Leon % (Auto) Eos % (Auto) Baso % (Auto) Neut # Lymph # Leon # Eos # Baso # Sodium 137 Potassium 4.6 Chloride 93 L Carbon Dioxide 26 Anion Gap 23 H BUN 60 H Creatinine 12.3 H* D Est GFR ( Amer) 5 Est GFR (Non-Af Amer) 5 POC Glucose (mg/dL) 96 113 H Random Glucose 79 Calcium 10.4 Phosphorus 6.5 H Magnesium 2.5 H Ferritin 922.0 Total Bilirubin 0.8 AST 35 ALT 23 Alkaline Phosphatase 316 H Total Protein 6.5 Albumin 3.5 Globulin 3.0 Albumin/Globulin Ratio 1.2 08/18/16 08/18/16 08/19/16 16:38 21:42 06:22 WBC 6.6 RBC 4.07 L Hgb 9.7 L Hct 31.9 L MCV 78.3 L MCH 23.8 L MCHC 30.4 L RDW 20.6 H Plt Count 154 MPV 9.6 Neut % (Auto) 69.8 Lymph % (Auto) 15.8 L Leon % (Auto) 7.7 Eos % (Auto) 6.1 H Baso % (Auto) 0.6 Neut # 4.6 Lymph # 1.0 Leon # 0.5 Eos # 0.4 Baso # 0.0 Sodium Potassium Chloride Carbon Dioxide Anion Gap BUN Creatinine Est GFR ( Amer) Est GFR (Non-Af Amer) POC Glucose (mg/dL) 92 104 Random Glucose Calcium Phosphorus Magnesium Ferritin Total Bilirubin AST ALT Alkaline Phosphatase Total Protein Albumin Globulin Albumin/Globulin Ratio 08/19/16 06:22 WBC RBC Hgb Hct MCV MCH MCHC RDW Plt Count MPV Neut % (Auto) Lymph % (Auto) Leon % (Auto) Eos % (Auto) Baso % (Auto) Neut # Lymph # Leon # Eos # Baso # Sodium 136 Potassium 3.8 Chloride 94 L Carbon Dioxide 26 Anion Gap 20 BUN 39 H Creatinine 9.1 H* D Est GFR ( Amer) 8 Est GFR (Non-Af Amer) 6 POC Glucose (mg/dL) Random Glucose 87 Calcium 10.1 Phosphorus 5.5 H Magnesium 2.3 Ferritin Total Bilirubin 0.7 AST 29 ALT 25 Alkaline Phosphatase 302 H Total Protein 6.1 L Albumin 3.3 L Globulin 2.9 Albumin/Globulin Ratio 1.1 Fingerstick Blood Sugar Results: 115 Review of Systems - Constitutional Constitutional: absent: Fever, Chills - EENT Eyes: As Per HPI. absent: Blurred Vision Ears: As Per HPI. absent: Tinnitus, Dizziness Nose/Mouth/Throat: As Per HPI. absent: Sore Throat - Cardiovascular Cardiovascular: As Per HPI. absent: Chest Pain, Dyspnea, Edema - Respiratory Respiratory: As Per HPI. absent: Cough, Dyspnea, Chest Congestion - Gastrointestinal Gastrointestinal: As Per HPI. absent: Abdominal Pain, Constipation, Diarrhea, Nausea, Vomiting - Genitourinary Genitourinary: Other (Patient had HD yesterday 08/18) - Musculoskeletal Musculoskeletal: As Par HPI. absent: Back Pain, Numbness, Tingling - Integumentary Integumentary: As Per HPI. absent: Rash - Neurological Neurological: As Per HPI. absent: Dizziness, Numbness, Headaches, Weakness - Psychiatric Psychiatric: As Per HPI. absent: Anxiety, Depression - Endocrine Endocrine: As Per HPI. absent: Polydipsia, Polyphagia - Hematologic/Lymphatic Hematologic: As Per HPI. absent: Easy Bleeding, Easy Bruising, Lymphadenopathy Critical Care Progress Note - Nutrition Nutrition: Nutrition Category Date Time Status NPO Diet [DIET] Diets 08/19/16 Breakfast Active Assessment/Plan - Assessment and Plan (Free Text) Assessment: 41 year old male PMHx ESRD on HD TTS, HTN, secondary hyperparathyroidism presented s/p cardiac arrest at HD center Plan: Neuro -patient had 2 seizures in ER and was given Ativan 2mg x 2 in ER -likely hypoxic seizure -f/u EEG -CT head: unremarkable -Thiamine 100mg iv q8 -neuro following Dr. Negrete Cardiovascular -Patient s/p cardiac arrest and 1 defibrillation in HD center -Patient was scheduled for cardiac cath today but wanted to eat after being NPO after midnight; cardiac cath will be rescheduled -lipid panel TG 700 Chol 108 LDL 46 HDL 25 -troponin 0.2410--> 0.3480 -proBNP 68148 -Echo 08/17: LV severely dilated; normal LV thickness; EF 30-35% extensive akinesia of septal, inferior, inferoapical, apex; CAD; no mural clots seen; Transmitral flow pattern is Grade II pseudonormal filling dynamics; LA pressure mod elevated; LA volume index is severely increased; RV systolic fxn mildly reduced; LA severely dilated; Sclerotic mitral leaflets; calcified posterior mitral leaflet; MR mod to severe; Pulm systolic pressures is underestimated -As per Dr Maza patient to receive ICD after cardiac cath -D dimer +936 -V/Q scan low probability -venous dopplers negative b/l -ASA 81mg po daily -Plavix 75mg po daily -Crestor 10mg po hs -Metoprolol tartate 12.5mg po bid -Dr Haynes consulted -Dr Maza consulted Respiratory -breathing spontaneously on NC 3L -CXR: mild venous congestion; patchy L basilar airspace opacity; lucency along R heart border which may represent artifact; R hilar prominence; persistent R paratracheal airspace opacity may represent prominent vascularture; circumferential pleural thickening in R hemithorax GI -Colace 100mg po bid -Senna 8.6mg po hs -Miralax one time Renal -ESRD on HD TTS -Phoslo 1334mg po TIDCC -Dr Bunch consulted Heme -Anemia of chronic disease -Procrit 10,000U IV TTS -H&H stable Endo -HgbA1c 5.7 -no acute issues ID -blood culture prelim negative -sputum culture: no growth DVT ppx: Heparin 5000u sc q12; SCDs GI ppx: Pepcid 20mg ivp daily Code status: full code Case discussed with Dr. Hilaroi Garcia PGY2 <Neo Rich S - Last Filed: 08/19/16 17:41> CCU Objective - Vital Signs / Intake & Output Intake and Output (Last 8hrs): Intake & Output 08/19/16 08/19/16 08/19/16 06:59 14:59 22:59 Intake Total 0 580 Output Total 0 Balance 0 580 Intake: Oral 0 580 Output: Emesis 0 Other: # Bowel Movements 0 0 - Medications Active Medications: Active Medications Generic Name Dose Route Start Last Admin Trade Name Freq PRN Reason Stop Dose Admin Aspirin 81 mg 08/16/16 15:15 08/19/16 10:36 Aspirin Chewable PO 81 mg DAILY RAYNE Administration Calcium Acetate 1,334 mg 08/17/16 14:00 08/19/16 17:06 Phoslo PO 1,334 mg TIDCC RAYNE Administration Clopidogrel Bisulfate 75 mg 08/16/16 15:15 08/19/16 10:36 Plavix PO 75 mg DAILY RAYNE Administration Docusate Sodium 100 mg 08/18/16 18:00 08/19/16 17:02 Colace PO Not Given BID RAYNE Epoetin Imtiaz 10,000 unit 08/18/16 10:00 08/18/16 17:33 Procrit IV 10,000 unit TTS RAYNE Administration Famotidine 20 mg 08/16/16 14:45 08/19/16 10:36 Pepcid IVP 20 mg DAILY RAYNE Administration Heparin Sodium (Porcine) 5,000 units 08/16/16 22:00 08/18/16 22:18 Heparin SC 5,000 units Q12 RAYNE Administration Losartan Potassium 25 mg 08/19/16 13:30 08/19/16 17:09 Cozaar PO 25 mg DAILY RAYNE Administration Metoprolol Tartrate 12.5 mg 08/17/16 10:00 08/19/16 10:35 Lopressor PO 12.5 mg Q12 RAYNE Administration Rosuvastatin Calcium 10 mg 08/16/16 22:00 08/18/16 22:19 Crestor PO 10 mg HS RAYNE Administration Sennosides 8.6 mg 08/18/16 22:00 08/18/16 22:21 Senokot Tab PO 8.6 mg HS RAYNE Administration Thiamine HCl 100 mg 08/17/16 12:00 08/19/16 12:58 Vitamin B1 Inj IV 100 mg Q8H RAYNE Administration - Patient Studies Lab Studies: Microbiology Studies 08/16/16 15:20 Blood Culture - Preliminary Blood-Venous NO GROWTH AFTER 3 DAYS 08/16/16 14:50 Blood Culture - Preliminary Blood-Venous NO GROWTH AFTER 3 DAYS Lab Studies 08/19/16 08/19/16 08/19/16 Range/Units 16:38 11:58 07:24 WBC (4.8-10.8) K/uL RBC (4.40-5.90) Mil/uL Hgb (12.0-18.0) g/dL Hct (35.0-51.0) % MCV (80.0-94.0) fL MCH (27.0-31.0) pg MCHC (33.0-37.0) g/dL RDW (11.5-14.5) % Plt Count (130-400) K/uL MPV (7.2-11.7) fL Neut % (Auto) (50.0-75.0) % Lymph % (Auto) (20.0-40.0) % Leon % (Auto) (0.0-10.0) % Eos % (Auto) (0.0-4.0) % Baso % (Auto) (0.0-2.0) % Neut # (1.8-7.0) K/uL Lymph # (1.0-4.3) K/uL Leon # (0.0-0.8) K/uL Eos # (0.0-0.7) K/uL Baso # (0.0-0.2) K/uL Sodium (132-148) mmol/L Potassium (3.6-5.2) mmol/L Chloride (98-107) mmol/L Carbon Dioxide (22-30) mmol/L Anion Gap (10-20) BUN (9-20) mg/dL Creatinine (0.8-1.5) MG/DL Est GFR ( Amer) Est GFR (Non-Af Amer) POC Glucose (mg/dL) 78 86 86 (65-110) mg/dL Random Glucose (75-110) mg/dL Calcium (8.6-10.4) mg/dl Phosphorus (2.5-4.5) mg/dL Magnesium (1.6-2.3) mg/dL Total Bilirubin (0.2-1.3) mg/dL AST (17-59) U/L ALT (21-72) U/L Alkaline Phosphatase (38-126) U/L Total Protein (6.3-8.3) g/dL Albumin (3.5-5.0) g/dL Globulin (2.2-3.9) gm/dL Albumin/Globulin Ratio (1.0-2.1) PTH Intact Whole Molec (14-64) pg/mL 08/19/16 08/19/16 08/18/16 Range/Units 06:22 06:22 21:42 WBC 6.6 (4.8-10.8) K/uL RBC 4.07 L (4.40-5.90) Mil/uL Hgb 9.7 L (12.0-18.0) g/dL Hct 31.9 L (35.0-51.0) % MCV 78.3 L (80.0-94.0) fL MCH 23.8 L (27.0-31.0) pg MCHC 30.4 L (33.0-37.0) g/dL RDW 20.6 H (11.5-14.5) % Plt Count 154 (130-400) K/uL MPV 9.6 (7.2-11.7) fL Neut % (Auto) 69.8 (50.0-75.0) % Lymph % (Auto) 15.8 L (20.0-40.0) % Leon % (Auto) 7.7 (0.0-10.0) % Eos % (Auto) 6.1 H (0.0-4.0) % Baso % (Auto) 0.6 (0.0-2.0) % Neut # 4.6 (1.8-7.0) K/uL Lymph # 1.0 (1.0-4.3) K/uL Leon # 0.5 (0.0-0.8) K/uL Eos # 0.4 (0.0-0.7) K/uL Baso # 0.0 (0.0-0.2) K/uL Sodium 136 (132-148) mmol/L Potassium 3.8 (3.6-5.2) mmol/L Chloride 94 L (98-107) mmol/L Carbon Dioxide 26 (22-30) mmol/L Anion Gap 20 (10-20) BUN 39 H (9-20) mg/dL Creatinine 9.1 H* D (0.8-1.5) MG/DL Est GFR ( Amer) 8 Est GFR (Non-Af Amer) 6 POC Glucose (mg/dL) 104 (65-110) mg/dL Random Glucose 87 (75-110) mg/dL Calcium 10.1 (8.6-10.4) mg/dl Phosphorus 5.5 H (2.5-4.5) mg/dL Magnesium 2.3 (1.6-2.3) mg/dL Total Bilirubin 0.7 (0.2-1.3) mg/dL AST 29 (17-59) U/L ALT 25 (21-72) U/L Alkaline Phosphatase 302 H (38-126) U/L Total Protein 6.1 L (6.3-8.3) g/dL Albumin 3.3 L (3.5-5.0) g/dL Globulin 2.9 (2.2-3.9) gm/dL Albumin/Globulin Ratio 1.1 (1.0-2.1) PTH Intact Whole Molec (14-64) pg/mL 08/18/16 Range/Units 06:31 WBC (4.8-10.8) K/uL RBC (4.40-5.90) Mil/uL Hgb (12.0-18.0) g/dL Hct (35.0-51.0) % MCV (80.0-94.0) fL MCH (27.0-31.0) pg MCHC (33.0-37.0) g/dL RDW (11.5-14.5) % Plt Count (130-400) K/uL MPV (7.2-11.7) fL Neut % (Auto) (50.0-75.0) % Lymph % (Auto) (20.0-40.0) % Leon % (Auto) (0.0-10.0) % Eos % (Auto) (0.0-4.0) % Baso % (Auto) (0.0-2.0) % Neut # (1.8-7.0) K/uL Lymph # (1.0-4.3) K/uL Leon # (0.0-0.8) K/uL Eos # (0.0-0.7) K/uL Baso # (0.0-0.2) K/uL Sodium (132-148) mmol/L Potassium (3.6-5.2) mmol/L Chloride (98-107) mmol/L Carbon Dioxide (22-30) mmol/L Anion Gap (10-20) BUN (9-20) mg/dL Creatinine (0.8-1.5) MG/DL Est GFR ( Amer) Est GFR (Non-Af Amer) POC Glucose (mg/dL) (65-110) mg/dL Random Glucose (75-110) mg/dL Calcium (8.6-10.4) mg/dl Phosphorus (2.5-4.5) mg/dL Magnesium (1.6-2.3) mg/dL Total Bilirubin (0.2-1.3) mg/dL AST (17-59) U/L ALT (21-72) U/L Alkaline Phosphatase (38-126) U/L Total Protein (6.3-8.3) g/dL Albumin (3.5-5.0) g/dL Globulin (2.2-3.9) gm/dL Albumin/Globulin Ratio (1.0-2.1) PTH Intact Whole Molec 1415 H (14-64) pg/mL Laboratory Results - last 24 hr 08/18/16 08/18/16 08/19/16 06:31 21:42 06:22 WBC 6.6 RBC 4.07 L Hgb 9.7 L Hct 31.9 L MCV 78.3 L MCH 23.8 L MCHC 30.4 L RDW 20.6 H Plt Count 154 MPV 9.6 Neut % (Auto) 69.8 Lymph % (Auto) 15.8 L Leon % (Auto) 7.7 Eos % (Auto) 6.1 H Baso % (Auto) 0.6 Neut # 4.6 Lymph # 1.0 Leon # 0.5 Eos # 0.4 Baso # 0.0 Sodium Potassium Chloride Carbon Dioxide Anion Gap BUN Creatinine Est GFR ( Amer) Est GFR (Non-Af Amer) POC Glucose (mg/dL) 104 Random Glucose Calcium Phosphorus Magnesium Total Bilirubin AST ALT Alkaline Phosphatase Total Protein Albumin Globulin Albumin/Globulin Ratio PTH Intact Whole Molec 1415 H 08/19/16 08/19/16 08/19/16 06:22 07:24 11:58 WBC RBC Hgb Hct MCV MCH MCHC RDW Plt Count MPV Neut % (Auto) Lymph % (Auto) Leon % (Auto) Eos % (Auto) Baso % (Auto) Neut # Lymph # Leon # Eos # Baso # Sodium 136 Potassium 3.8 Chloride 94 L Carbon Dioxide 26 Anion Gap 20 BUN 39 H Creatinine 9.1 H* D Est GFR ( Amer) 8 Est GFR (Non-Af Amer) 6 POC Glucose (mg/dL) 86 86 Random Glucose 87 Calcium 10.1 Phosphorus 5.5 H Magnesium 2.3 Total Bilirubin 0.7 AST 29 ALT 25 Alkaline Phosphatase 302 H Total Protein 6.1 L Albumin 3.3 L Globulin 2.9 Albumin/Globulin Ratio 1.1 PTH Intact Whole Molec 08/19/16 16:38 WBC RBC Hgb Hct MCV MCH MCHC RDW Plt Count MPV Neut % (Auto) Lymph % (Auto) Leon % (Auto) Eos % (Auto) Baso % (Auto) Neut # Lymph # Leon # Eos # Baso # Sodium Potassium Chloride Carbon Dioxide Anion Gap BUN Creatinine Est GFR ( Amer) Est GFR (Non-Af Amer) POC Glucose (mg/dL) 78 Random Glucose Calcium Phosphorus Magnesium Total Bilirubin AST ALT Alkaline Phosphatase Total Protein Albumin Globulin Albumin/Globulin Ratio PTH Intact Whole Molec Critical Care Progress Note - Nutrition Nutrition: Nutrition Category Date Time Status NPO Diet [DIET] Diets 08/19/16 Breakfast Active Attending/Attestation - Attestation I have personally seen and examined this patient.: Yes I have fully participated in the care of the patient.: Yes I have reviewed all pertinent clinical information: Yes Notes (Text): 08/19/16 17:40 patient seen and examined in the intensive care unit. Case discussed with house staff in the morning rounds. Patient alert oriented x3 with amnesia of recent events Cardiac catheter canceled rescheduled for Monday Continue present treatment Continue hemodialysis Neurology followup
--- NOTE | 2016-08-19 09:44 | CP.PCM.PN ---
Subjective - Date & Time of Evaluation Date of Evaluation: 08/19/16 Time of Evaluation: 09:30 - Subjective Subjective: Patient was seen and examined by me. I saw him when he came in intubated after having a cardiac arrest during HD. My colleagues were also seeing and I am seeing him today. Since the time I previously saw patient, he is now extubated and has been determined to have had a very low EF. He is pending a cardiac cath sometime today and later possible will need an AICD. He also had a code star last night due to a fall. When I saw patient he was awake and alert. Family present at bedside. He was not in any acute distress. Denied pain, denied shortness of breath. He was NPO so he reported being very hungry. Objective - Vital Signs/Intake and Output Vital Signs (last 24 hours): Temp Pulse Resp BP Pulse Ox 86 F L 100 H 15 148/101 H 99 08/19/16 08:00 08/19/16 09:24 08/19/16 09:24 08/19/16 09:24 08/19/16 09:00 Intake and Output: 08/19/16 08/19/16 06:59 18:59 Intake Total 100 Output Total 0 Balance 100 0 - Medications Medications: Current Medications Aspirin (Aspirin Chewable) 81 mg PO DAILY [facility] Last Admin: 08/18/16 10:34 Dose: 81 mg Calcium Acetate (Phoslo) 1,334 mg PO TIDCC [facility] Last Admin: 08/19/16 09:39 Dose: Not Given Clopidogrel Bisulfate (Plavix) 75 mg PO DAILY [facility] Last Admin: 08/18/16 10:34 Dose: 75 mg Docusate Sodium (Colace) 100 mg PO BID [facility] Last Admin: 08/18/16 17:35 Dose: 100 mg Epoetin Imtiaz (Procrit) 10,000 unit IV TTS [facility] Last Admin: 08/18/16 17:33 Dose: 10,000 unit Famotidine (Pepcid) 20 mg IVP DAILY [facility] Last Admin: 08/18/16 10:35 Dose: 20 mg Heparin Sodium (Porcine) (Heparin) 5,000 units SC Q12 [facility] Last Admin: 08/18/16 22:18 Dose: 5,000 units Metoprolol Tartrate (Lopressor) 12.5 mg PO Q12 [facility] Last Admin: 08/18/16 22:17 Dose: 12.5 mg Rosuvastatin Calcium (Crestor) 10 mg PO [facility] Last Admin: 08/18/16 22:19 Dose: 10 mg Sennosides (Senokot Tab) 8.6 mg PO [facility] Last Admin: 08/18/16 22:21 Dose: 8.6 mg Thiamine HCl (Vitamin B1 Inj) 100 mg IV Q8H [facility] Last Admin: 08/19/16 04:00 Dose: 100 mg - Labs Labs: 08/19/16 06:22 08/19/16 06:22 PT 12.5 SECONDS (9.7-12.2) H 08/16/16 10:29 INR 1.1 08/16/16 10:29 APTT 29 SECONDS (21-34) D 08/17/16 06:03 - Constitutional Appears: Well, Non-toxic, No Acute Distress - Head Exam Head Exam: NORMAL INSPECTION - Eye Exam Eye Exam: EOMI, Normal appearance - ENT Exam ENT Exam: Mucous Membranes Moist - Respiratory Exam Respiratory Exam: Clear to Ausculation Bilateral, NORMAL BREATHING PATTERN - Cardiovascular Exam Cardiovascular Exam: REGULAR RHYTHM - GI/Abdominal Exam GI & Abdominal Exam: Soft, Normal Bowel Sounds - Neurological Exam Neurological Exam: Alert, Awake, Oriented x3 - Psychiatric Exam Psychiatric exam: Depressed, Flat Affect - Skin Skin Exam: Normal Color, Warm Assessment and Plan - Assessment and Plan (Free Text) Assessment: Assessment and Plan (1) Cardiac arrest; NonStemi Assessment & Plan: 08/19: Pending cardiac cath later today. On Plavix, ASA, statin Consult: Dr Haynes (Cardiology) on board-->help appreciated-->pending cath Consult: Dr. Maza (cardiology-[facility]) on board-->help appreciated-->will need ICD V/Q scan negative for PE Patient s/p cardiac arrest and 1 defibrillation in HD center T, Cholestrol: 108, LDL: 46, HDL: 25 On Aspirin 81mg PO daily On plavix 75mg PO daily Troponin: 0.2410-->0.3480 proBNP 34749 Echocardiogram (08/17/16): left ventricle severely dilated, normal ventricular wall thickness, EF: 30-35%, extensive akinesia of septal, inferior inferoapical , left atrial pressure moderately elevated, mitral regurgitation moderate to severe Venous doppler: negative dvt Crestor 10mg po hs Metoprolol tartate 12.5mg po bid head CT (08/16/16): no intracranial mass, hemorrhage, or evidence of acute infarct. 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 Negrete) help appreciated Per neurology, likely secondary to cerebral hypoperfusion secondary to cardiac arrest and hypoxia Patient was in dialysis about 2 hours into session during suspected cardiac arrest EEG: mild b/l cerebral dysfunction, no noted seizure activity, per neurology head CT (08/16/16): no intracranial mass, hemorrhage, or evidence of acute infarct. 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 Negrete) help appreciated (3) ESRD (end stage renal disease) Assessment & Plan: Consult: Dr Mata (Nephrology) on board-->help appreciated (4) HTN (hypertension) Assessment & Plan: 08/19: Systolic BPs in the 140s recently Nephrology (Dr. Mata) on board-->help appreciated Lopressor 12.5mg PO Q 12hours ESRD (5) Prophylactic measure Assessment & Plan: DVT ppx: Heparin 5000 units subq 12hours GI px: pepcid 20mg IV q daily
[2016-08-19] MEDS ORDERED: POLYETHYLENE GLYCOL 3350 17 GM/Dose PACKET PO ONE (12:22)
--- NOTE | 2016-08-19 12:54 | CP.PCM.PN ---
<Nicolás Turcios - Last Filed: 08/19/16 13:46> Subjective - Date & Time of Evaluation Date of Evaluation: 08/19/16 Time of Evaluation: 12:52 - Subjective Subjective: Progress Note for Dr. Maza Pt seen and examined at bedside. Overnight, CODE STAR was called for patient as he slipped out of bed while playing with his ipad. No injuries were documented at this time. Otherwise, pt denies CP, SOB, N/V/D. Objective - Vital Signs/Intake and Output Vital Signs (last 24 hours): Temp Pulse Resp BP Pulse Ox 86 F L 99 H 9 L 157/107 H 100 08/19/16 08:00 08/19/16 12:09 08/19/16 12:09 08/19/16 12:09 08/19/16 12:00 Intake and Output: 08/19/16 08/19/16 06:59 18:59 Intake Total 100 580 Output Total 0 Balance 100 580 - Medications Medications: Current Medications Aspirin (Aspirin Chewable) 81 mg PO DAILY [facility] Last Admin: 08/19/16 10:36 Dose: 81 mg Calcium Acetate (Phoslo) 1,334 mg PO TIDCC [facility] Last Admin: 08/19/16 09:39 Dose: Not Given Clopidogrel Bisulfate (Plavix) 75 mg PO DAILY [facility] Last Admin: 08/19/16 10:36 Dose: 75 mg Docusate Sodium (Colace) 100 mg PO BID [facility] Last Admin: 08/19/16 10:36 Dose: 100 mg Epoetin Imtiaz (Procrit) 10,000 unit IV TTS [facility] Last Admin: 08/18/16 17:33 Dose: 10,000 unit Famotidine (Pepcid) 20 mg IVP DAILY [facility] Last Admin: 08/19/16 10:36 Dose: 20 mg Heparin Sodium (Porcine) (Heparin) 5,000 units SC Q12 [facility] Last Admin: 08/18/16 22:18 Dose: 5,000 units Metoprolol Tartrate (Lopressor) 12.5 mg PO Q12 [facility] Last Admin: 08/19/16 10:35 Dose: 12.5 mg Rosuvastatin Calcium (Crestor) 10 mg PO HS [facility] Last Admin: 08/18/16 22:19 Dose: 10 mg Sennosides (Senokot Tab) 8.6 mg PO HS [facility] Last Admin: 08/18/16 22:21 Dose: 8.6 mg Thiamine HCl (Vitamin B1 Inj) 100 mg IV Q8H [facility] Last Admin: 08/19/16 04:00 Dose: 100 mg - Labs Labs: 08/19/16 06:22 08/19/16 06:22 PT 12.5 SECONDS (9.7-12.2) H 08/16/16 10:29 INR 1.1 08/16/16 10:29 APTT 29 SECONDS (21-34) D 08/17/16 06:03 - Constitutional Appears: Non-toxic, No Acute Distress - Head Exam Head Exam: ATRAUMATIC, NORMAL INSPECTION, NORMOCEPHALIC - Respiratory Exam Respiratory Exam: Clear to Ausculation Bilateral, NORMAL BREATHING PATTERN - Cardiovascular Exam Cardiovascular Exam: RRR, +S1, +S2 - GI/Abdominal Exam GI & Abdominal Exam: Soft, Normal Bowel Sounds. absent: Tenderness - Extremities Exam Extremities Exam: absent: Calf Tenderness, Pedal Edema - Neurological Exam Neurological Exam: Alert, Awake - Skin Skin Exam: Intact, Normal Color, Warm Assessment and Plan (1) Cardiac arrest Assessment & Plan: Pt scheduled for cardiac catheterization today, but denied because he was hungry Pt will undergo ICD placement after cardiac cath Continue current medical management Status: Acute <Ashlyn Maza - Last Filed: 09/23/16 07:58> Objective - Vital Signs/Intake and Output Vital Signs (last 24 hours): Temp Pulse Resp BP Pulse Ox 98.4 F 105 H 18 131/91 H 100 08/22/16 19:00 08/22/16 19:00 08/22/16 19:00 08/22/16 19:00 08/22/16 19:00 - Labs Labs: 08/22/16 08:09 08/22/16 08:09 PT 12.5 SECONDS (9.7-12.2) H 08/16/16 10:29 INR 1.1 08/16/16 10:29 APTT 29 SECONDS (21-34) D 08/17/16 06:03 Attending/Attestation - Attestation I have personally seen and examined this patient.: Yes I have fully participated in the care of the patient.: Yes I have reviewed all pertinent clinical information, including history, physical exam and plan: Yes Notes (Text): 09/23/16 07:58 pending cardiac catheterization for icd if no critical obstructions
--- NOTE | 2016-08-19 13:20 | CP.PCM.PN ---
Subjective - Date & Time of Evaluation Date of Evaluation: 08/19/16 Time of Evaluation: 13:17 - Subjective Subjective: Alert, feels better HTN worse again- metoprolol started Just refused cardiac cath Low EF- likely needs ICD Stable dialysis 08/18- UF 2000ml Objective - Vital Signs/Intake and Output Vital Signs (last 24 hours): Temp Pulse Resp BP Pulse Ox 86 F L 99 H 9 L 157/107 H 100 08/19/16 08:00 08/19/16 12:09 08/19/16 12:09 08/19/16 12:09 08/19/16 12:00 Intake and Output: 08/19/16 08/19/16 06:59 18:59 Intake Total 100 580 Output Total 0 Balance 100 580 - Medications Medications: Current Medications Aspirin (Aspirin Chewable) 81 mg PO DAILY [facility] Last Admin: 08/19/16 10:36 Dose: 81 mg Calcium Acetate (Phoslo) 1,334 mg PO TIDCC [facility] Last Admin: 08/19/16 12:57 Dose: 1,334 mg Clopidogrel Bisulfate (Plavix) 75 mg PO DAILY [facility] Last Admin: 08/19/16 10:36 Dose: 75 mg Docusate Sodium (Colace) 100 mg PO BID [facility] Last Admin: 08/19/16 10:36 Dose: 100 mg Epoetin Imtiaz (Procrit) 10,000 unit IV TTS [facility] Last Admin: 08/18/16 17:33 Dose: 10,000 unit Famotidine (Pepcid) 20 mg IVP DAILY [facility] Last Admin: 08/19/16 10:36 Dose: 20 mg Heparin Sodium (Porcine) (Heparin) 5,000 units SC Q12 [facility] Last Admin: 08/18/16 22:18 Dose: 5,000 units Metoprolol Tartrate (Lopressor) 12.5 mg PO Q12 [facility] Last Admin: 08/19/16 10:35 Dose: 12.5 mg Rosuvastatin Calcium (Crestor) 10 mg PO HS [facility] Last Admin: 08/18/16 22:19 Dose: 10 mg Sennosides (Senokot Tab) 8.6 mg PO HS [facility] Last Admin: 08/18/16 22:21 Dose: 8.6 mg Thiamine HCl (Vitamin B1 Inj) 100 mg IV Q8H [facility] Last Admin: 08/19/16 12:58 Dose: 100 mg - Labs Labs: 08/19/16 06:22 08/19/16 06:22 PT 12.5 SECONDS (9.7-12.2) H 08/16/16 10:29 INR 1.1 08/16/16 10:29 APTT 29 SECONDS (21-34) D 08/17/16 06:03 - Constitutional Appears: No Acute Distress, Chronically Ill - Head Exam Head Exam: ATRAUMATIC, NORMAL INSPECTION - Eye Exam Eye Exam: EOMI, Normal appearance - Neck Exam Neck Exam: Normal Inspection. absent: Tenderness - Respiratory Exam Respiratory Exam: Clear to Ausculation Bilateral, NORMAL BREATHING PATTERN - Cardiovascular Exam Cardiovascular Exam: REGULAR RHYTHM, +S1 - GI/Abdominal Exam GI & Abdominal Exam: Soft. absent: Tenderness - Extremities Exam Extremities Exam: Normal Inspection. absent: Tenderness - Neurological Exam Neurological Exam: Alert, CN II-XII Intact - Skin Skin Exam: Dry, Warm Assessment and Plan (1) Secondary hyperparathyroidism Status: Acute (2) Cardiac arrest Status: Acute (3) Seizure Status: Acute (4) ESRD (end stage renal disease) Status: Chronic (5) HTN (hypertension) Status: Chronic - Assessment and Plan (Free Text) Plan: dialysis with increased UF - TTS; patient does not want extra HD today Will likely need increased BP meds Will talk to patient again about cardiac cath, need for ICD
--- NOTE | 2016-08-19 23:21 | CP.PCM.PN ---
Subjective - Date & Time of Evaluation Date of Evaluation: 08/19/16 Time of Evaluation: 18:25 - Subjective Subjective: Patient seen and evaluated comfortable Possible cath Monday Objective - Vital Signs/Intake and Output Vital Signs (last 24 hours): Temp Pulse Resp BP Pulse Ox 98.6 F 104 H 20 150/99 H 77 L 08/19/16 16:00 08/19/16 19:09 08/19/16 19:09 08/19/16 19:09 08/19/16 17:24 Intake and Output: 08/19/16 08/20/16 18:59 06:59 Intake Total 780 150 Output Total 0 0 Balance 780 150 - Medications Medications: Current Medications Aspirin (Aspirin Chewable) 81 mg PO DAILY [facility] Last Admin: 08/19/16 10:36 Dose: 81 mg Calcium Acetate (Phoslo) 1,334 mg PO TIDCC [facility] Last Admin: 08/19/16 17:06 Dose: 1,334 mg Clopidogrel Bisulfate (Plavix) 75 mg PO DAILY [facility] Last Admin: 08/19/16 10:36 Dose: 75 mg Docusate Sodium (Colace) 100 mg PO BID [facility] Last Admin: 08/19/16 17:02 Dose: Not Given Epoetin Imtiaz (Procrit) 10,000 unit IV TTS [facility] Last Admin: 08/18/16 17:33 Dose: 10,000 unit Famotidine (Pepcid) 20 mg IVP DAILY [facility] Last Admin: 08/19/16 10:36 Dose: 20 mg Heparin Sodium (Porcine) (Heparin) 5,000 units SC Q12 [facility] Last Admin: 08/19/16 22:10 Dose: 5,000 units Losartan Potassium (Cozaar) 25 mg PO DAILY [facility] Last Admin: 08/19/16 17:09 Dose: 25 mg Metoprolol Tartrate (Lopressor) 12.5 mg PO Q12 [facility] Last Admin: 08/19/16 22:10 Dose: 12.5 mg Rosuvastatin Calcium (Crestor) 10 mg PO HS [facility] Last Admin: 08/19/16 22:10 Dose: 10 mg Sennosides (Senokot Tab) 8.6 mg PO HS [facility] Last Admin: 08/19/16 22:18 Dose: Not Given Thiamine HCl (Vitamin B1 Inj) 100 mg IV Q8H [facility] Last Admin: 06/30/17 20:49 Dose: 100 mg - Labs Labs: 08/19/16 06:22 08/19/16 06:22 PT 12.5 SECONDS (9.7-12.2) H 08/16/16 10:29 INR 1.1 08/16/16 10:29 APTT 29 SECONDS (21-34) D 08/17/16 06:03
[2016-08-20] MEDS: Thiamine 100 mg/ml Inj IV SCH ×3 (04:10→21:11)
--- NOTE | 2016-08-20 07:12 | CP.PCM.PN ---
Subjective - Date & Time of Evaluation Date of Evaluation: 08/20/16 Time of Evaluation: 07:12 - Subjective Subjective: no vt tolerating po no complaints Objective - Vital Signs/Intake and Output Vital Signs (last 24 hours): Temp Pulse Resp BP Pulse Ox 98.5 F 88 11 L 124/78 77 L 08/20/16 04:00 08/20/16 04:09 08/20/16 04:09 08/20/16 04:09 08/19/16 17:24 Intake and Output: 08/20/16 08/20/16 06:59 18:59 Intake Total 150 Output Total 0 Balance 150 - Medications Medications: Current Medications Aspirin (Aspirin Chewable) 81 mg PO DAILY [facility] Last Admin: 08/19/16 10:36 Dose: 81 mg Calcium Acetate (Phoslo) 1,334 mg PO TIDCC [facility] Last Admin: 08/19/16 17:06 Dose: 1,334 mg Clopidogrel Bisulfate (Plavix) 75 mg PO DAILY [facility] Last Admin: 08/19/16 10:36 Dose: 75 mg Docusate Sodium (Colace) 100 mg PO BID [facility] Last Admin: 08/19/16 17:02 Dose: Not Given Epoetin Imtiaz (Procrit) 10,000 unit IV TTS [facility] Last Admin: 08/18/16 17:33 Dose: 10,000 unit Famotidine (Pepcid) 20 mg IVP DAILY [facility] Last Admin: 08/19/16 10:36 Dose: 20 mg Heparin Sodium (Porcine) (Heparin) 5,000 units SC Q12 [facility] Last Admin: 08/19/16 22:10 Dose: 5,000 units Losartan Potassium (Cozaar) 25 mg PO DAILY [facility] Last Admin: 08/19/16 17:09 Dose: 25 mg Metoprolol Tartrate (Lopressor) 12.5 mg PO Q12 [facility] Last Admin: 08/19/16 22:10 Dose: 12.5 mg Rosuvastatin Calcium (Crestor) 10 mg PO HS [facility] Last Admin: 08/19/16 22:10 Dose: 10 mg Sennosides (Senokot Tab) 8.6 mg PO HS [facility] Last Admin: 08/19/16 22:18 Dose: Not Given Thiamine HCl (Vitamin B1 Inj) 100 mg IV Q8H [facility] Last Admin: 08/20/16 04:10 Dose: 100 mg - Labs Labs: 08/19/16 06:22 08/19/16 06:22 PT 12.5 SECONDS (9.7-12.2) H 08/16/16 10:29 INR 1.1 08/16/16 10:29 APTT 29 SECONDS (21-34) D 08/17/16 06:03 - Constitutional Appears: Well - Head Exam Head Exam: ATRAUMATIC - Eye Exam Eye Exam: Normal appearance - ENT Exam ENT Exam: Mucous Membranes Moist - Neck Exam Neck Exam: Normal Inspection - Respiratory Exam Respiratory Exam: NORMAL BREATHING PATTERN - Cardiovascular Exam Cardiovascular Exam: REGULAR RHYTHM - GI/Abdominal Exam GI & Abdominal Exam: Soft, Normal Bowel Sounds - Extremities Exam Extremities Exam: absent: Pedal Edema - Neurological Exam Neurological Exam: Alert, Awake - Psychiatric Exam Psychiatric exam: Normal Affect - Skin Skin Exam: Normal Color Assessment and Plan (1) Cardiac arrest Assessment & Plan: no vt continue dialyis for cardiac catheterization Status: Acute (2) Ischemic cardiomyopathy Status: Acute
[2016-08-20 09:42] LABS: BASO # 0.1 K/uL (0.0-0.2); EOS # 0.6 K/uL (0.0-0.7); EOS % 9.8 % (0.0-4.0); LYMPH # 1.2 K/uL (1.0-4.3); MEAN CELL VOLUME 78.6 fL (80.0-94.0); MEAN CORPUSCULAR HEMOGLOBIN 23.6 pg (27.0-31.0); MEAN PLATELET VOLUME 9.5 fL (7.2-11.7); MONO # 0.4 K/uL (0.0-0.8); RED CELL DISTRIBUTION WIDTH 20.9 % (11.5-14.5); WHITE BLOOD COUNT 6.1 K/uL (4.8-10.8)
[2016-08-20 09:53] LABS: POTASSIUM 3.9 mmol/L (3.6-5.2)
[2016-08-20 09:55] LABS: ALB/GLOB RATIO 1.1 (1.0-2.1); BILIRUBIN,TOTAL 0.6 mg/dL (0.2-1.3); TOTAL PROTEIN 5.9 g/dL (6.3-8.3)
[2016-08-20 09:56] LABS: MAGNESIUM 2.5 mg/dL (1.6-2.3); PHOSPHOROUS 5.6 mg/dL (2.5-4.5)
[2016-08-20] MEDS: Epoetin Alfa 10,000 unit/ml Dialysis IV SCH (10:03)
--- NOTE | 2016-08-20 10:46 | CP.PCM.PN ---
Subjective - Date & Time of Evaluation Date of Evaluation: 08/20/16 Time of Evaluation: 10:44 - Subjective Subjective: Seen on dialysis - to UF 3000ml HTN better controlled Pt agrees to cardiac cath - possibly 08/22 Confused but no new complaints Objective - Vital Signs/Intake and Output Vital Signs (last 24 hours): Temp Pulse Resp BP Pulse Ox 97.9 F 97 H 18 139/92 H 98 08/20/16 09:10 08/20/16 09:10 08/20/16 09:10 08/20/16 09:55 08/20/16 09:10 Intake and Output: 08/20/16 08/20/16 06:59 18:59 Intake Total 150 Output Total 0 Balance 150 - Medications Medications: Current Medications Aspirin (Aspirin Chewable) 81 mg PO DAILY [facility] Last Admin: 08/19/16 10:36 Dose: 81 mg Calcium Acetate (Phoslo) 1,334 mg PO TIDCC [facility] Last Admin: 08/19/16 17:06 Dose: 1,334 mg Clopidogrel Bisulfate (Plavix) 75 mg PO DAILY [facility] Last Admin: 08/19/16 10:36 Dose: 75 mg Docusate Sodium (Colace) 100 mg PO BID [facility] Last Admin: 08/19/16 17:02 Dose: Not Given Epoetin Imtiaz (Procrit) 10,000 unit IV TTS [facility] Last Admin: 08/20/16 10:03 Dose: 10,000 unit Famotidine (Pepcid) 20 mg IVP DAILY [facility] Last Admin: 08/19/16 10:36 Dose: 20 mg Heparin Sodium (Porcine) (Heparin) 5,000 units SC Q12 [facility] Last Admin: 08/20/16 10:00 Dose: Not Given Heparin Sodium (Porcine) (Heparin) 2,000 units IVP TTS [facility] Last Admin: 08/20/16 10:40 Dose: 2,000 units Heparin Sodium (Porcine) (Heparin) 4,600 units IVP TTS [facility] Last Admin: 08/20/16 10:41 Dose: 4,600 units Losartan Potassium (Cozaar) 25 mg PO DAILY [facility] Last Admin: 08/19/16 17:09 Dose: 25 mg Metoprolol Tartrate (Lopressor) 12.5 mg PO Q12 [facility] Last Admin: 08/19/16 22:10 Dose: 12.5 mg Rosuvastatin Calcium (Crestor) 10 mg PO HS [facility] Last Admin: 08/19/16 22:10 Dose: 10 mg Sennosides (Senokot Tab) 8.6 mg PO [facility] Last Admin: 08/19/16 22:18 Dose: Not Given Thiamine HCl (Vitamin B1 Inj) 100 mg IV Q8H [facility] Last Admin: 08/20/16 04:10 Dose: 100 mg - Labs Labs: 08/20/16 09:38 08/20/16 09:38 PT 12.5 SECONDS (9.7-12.2) H 08/16/16 10:29 INR 1.1 08/16/16 10:29 APTT 29 SECONDS (21-34) D 08/17/16 06:03 - Constitutional Appears: No Acute Distress, Chronically Ill - Head Exam Head Exam: ATRAUMATIC, NORMAL INSPECTION - Eye Exam Eye Exam: EOMI, Normal appearance - Neck Exam Neck Exam: Normal Inspection. absent: Tenderness - Respiratory Exam Respiratory Exam: Clear to Ausculation Bilateral, NORMAL BREATHING PATTERN - Cardiovascular Exam Cardiovascular Exam: REGULAR RHYTHM, +S1 - GI/Abdominal Exam GI & Abdominal Exam: Soft. absent: Tenderness - Extremities Exam Extremities Exam: Normal Inspection. absent: Tenderness - Neurological Exam Neurological Exam: Awake, CN II-XII Intact - Skin Skin Exam: Dry, Warm Assessment and Plan (1) Secondary hyperparathyroidism Status: Acute (2) Cardiac arrest Status: Acute (3) Seizure Status: Acute (4) ESRD (end stage renal disease) Status: Chronic (5) HTN (hypertension) Status: Chronic - Assessment and Plan (Free Text) Plan: Dialysis TTS UF 3-3.5 L q dialysis Hopefully cardiac cath 08/22 Monitor BP
[2016-08-21] MEDS: Thiamine 100 mg/ml Inj IV SCH (05:20)
--- NOTE | 2016-08-21 06:28 | CP.PCM.PN ---
Subjective - Date & Time of Evaluation Date of Evaluation: 08/21/16 Time of Evaluation: 06:28 - Subjective Subjective: pt no cp no complaints tolerating PO Objective - Vital Signs/Intake and Output Vital Signs (last 24 hours): Temp Pulse Resp BP Pulse Ox 97.6 F 90 20 147/91 H 98 08/20/16 23:00 08/20/16 23:00 08/20/16 23:00 08/20/16 23:00 08/20/16 23:00 - Medications Medications: Current Medications Aspirin (Aspirin Chewable) 81 mg PO DAILY [facility] Last Admin: 08/20/16 14:07 Dose: 81 mg Calcium Acetate (Phoslo) 1,334 mg PO TIDCC [facility] Last Admin: 08/20/16 21:12 Dose: 1,334 mg Clopidogrel Bisulfate (Plavix) 75 mg PO DAILY [facility] Last Admin: 08/20/16 14:08 Dose: 75 mg Docusate Sodium (Colace) 100 mg PO BID [facility] Last Admin: 08/20/16 21:12 Dose: Not Given Epoetin Imtiaz (Procrit) 10,000 unit IV TTS [facility] Last Admin: 08/20/16 10:03 Dose: 10,000 unit Famotidine (Pepcid) 20 mg IVP DAILY [facility] Last Admin: 08/20/16 14:07 Dose: 20 mg Heparin Sodium (Porcine) (Heparin) 5,000 units SC Q12 [facility] Last Admin: 08/20/16 21:11 Dose: 5,000 units Heparin Sodium (Porcine) (Heparin) 2,000 units IVP TTS [facility] Last Admin: 08/20/16 10:40 Dose: 2,000 units Heparin Sodium (Porcine) (Heparin) 4,600 units IVP TTS [facility] Last Admin: 08/20/16 10:41 Dose: 4,600 units Losartan Potassium (Cozaar) 25 mg PO DAILY [facility] Last Admin: 08/20/16 14:07 Dose: 25 mg Metoprolol Tartrate (Lopressor) 12.5 mg PO Q12 [facility] Last Admin: 08/20/16 21:10 Dose: 12.5 mg Rosuvastatin Calcium (Crestor) 10 mg PO HS [facility] Last Admin: 08/20/16 21:10 Dose: 10 mg Sennosides (Senokot Tab) 8.6 mg PO HS [facility] Last Admin: 08/20/16 21:13 Dose: Not Given Thiamine HCl (Vitamin B1 Inj) 100 mg IV Q8H [facility] Last Admin: 08/21/16 05:20 Dose: 100 mg - Labs Labs: 08/20/16 09:38 08/20/16 09:38 PT 12.5 SECONDS (9.7-12.2) H 08/16/16 10:29 INR 1.1 08/16/16 10:29 APTT 29 SECONDS (21-34) D 08/17/16 06:03 - Constitutional Appears: Well - Head Exam Head Exam: ATRAUMATIC - Eye Exam Eye Exam: Normal appearance - ENT Exam ENT Exam: Mucous Membranes Moist - Respiratory Exam Respiratory Exam: NORMAL BREATHING PATTERN - Cardiovascular Exam Cardiovascular Exam: REGULAR RHYTHM - GI/Abdominal Exam GI & Abdominal Exam: Normal Bowel Sounds - Extremities Exam Extremities Exam: absent: Pedal Edema - Neurological Exam Neurological Exam: Alert - Psychiatric Exam Psychiatric exam: absent: Anxious - Skin Skin Exam: Intact Assessment and Plan (1) Cardiac arrest Assessment & Plan: pt with myopathe cardiac arrest for cath tomorrow Status: Acute (2) Dialysis catheter clot or failure Status: Acute (3) Ischemic cardiomyopathy Status: Acute
[2016-08-21 09:54] LABS: BASO # 0.1 K/uL (0.0-0.2); BASO % 1.3 % (0.0-2.0); EOS # 0.6 K/uL (0.0-0.7); HEMATOCRIT 31.8 % (35.0-51.0); LYMPH # 1.5 K/uL (1.0-4.3); LYMPH % 27.7 % (20.0-40.0); MEAN CELL VOLUME 78.7 fL (80.0-94.0); MEAN CORPUSCULAR HEMOGLOBIN 23.6 pg (27.0-31.0); MEAN CORPUSCULAR HGB CONC 29.9 g/dL (33.0-37.0); MEAN PLATELET VOLUME 9.4 fL (7.2-11.7); MONO # 0.4 K/uL (0.0-0.8); MONO % 7.7 % (0.0-10.0); NRBC % 0.1 % (0.0-2.0); RED CELL DISTRIBUTION WIDTH 20.1 % (11.5-14.5); WHITE BLOOD COUNT 5.5 K/uL (4.8-10.8)
[2016-08-21 10:14] LABS: BILIRUBIN,TOTAL 0.5 mg/dL (0.2-1.3)
[2016-08-21 10:15] LABS: ALB/GLOB RATIO 1.1 (1.0-2.1); PHOSPHOROUS 5.5 mg/dL (2.5-4.5); TOTAL PROTEIN 5.8 g/dL (6.3-8.3)
[2016-08-21 10:16] LABS: CALCIUM 9.9 mg/dl (8.6-10.4); MAGNESIUM 2.3 mg/dL (1.6-2.3)
--- NOTE | 2016-08-21 11:30 | CP.PCM.PN ---
Subjective - Date & Time of Evaluation Date of Evaluation: 08/21/16 Time of Evaluation: 11:00 - Subjective Subjective: Patient is doing well. He is with his , and two other friends. Not in any acute distress. He is out of the bed in chair. Calm/pleasant affect today His memory seems very good today. He remember who I am and our conversation we had yesterday with reguards to getting cardiac cath. He denied pain, denied shortness of breath, denied abdominal pain, denied pain with the femoral HD cathter. On telemetry his HR varies between 70s to 80s, there are a lot of PVCs but I don 't see any recorded VT runs, however for the record this machine is not reliable and there is nobody watching the monitor. Objective - Vital Signs/Intake and Output Vital Signs (last 24 hours): Temp Pulse Resp BP Pulse Ox 98.2 F 92 H 18 133/91 H 100 08/21/16 08:33 08/21/16 08:33 08/21/16 08:33 08/21/16 08:33 08/21/16 08:33 - Medications Medications: Current Medications Aspirin (Aspirin Chewable) 81 mg PO DAILY [facility] Last Admin: 08/21/16 09:21 Dose: 81 mg Calcium Acetate (Phoslo) 1,334 mg PO TIDCC [facility] Last Admin: 08/21/16 09:21 Dose: 1,334 mg Clopidogrel Bisulfate (Plavix) 75 mg PO DAILY [facility] Last Admin: 08/21/16 09:21 Dose: 75 mg Docusate Sodium (Colace) 100 mg PO BID [facility] Last Admin: 08/21/16 09:21 Dose: 100 mg Epoetin Imtiaz (Procrit) 10,000 unit IV TTS [facility] Last Admin: 08/20/16 10:03 Dose: 10,000 unit Famotidine (Pepcid) 20 mg IVP DAILY [facility] Last Admin: 08/21/16 09:25 Dose: 20 mg Heparin Sodium (Porcine) (Heparin) 5,000 units SC Q12 [facility] Last Admin: 08/21/16 09:24 Dose: 5,000 units Heparin Sodium (Porcine) (Heparin) 2,000 units IVP TTS [facility] Last Admin: 08/20/16 10:40 Dose: 2,000 units Heparin Sodium (Porcine) (Heparin) 4,600 units IVP TTS [facility] Last Admin: 08/20/16 10:41 Dose: 4,600 units Losartan Potassium (Cozaar) 25 mg PO DAILY [facility] Last Admin: 08/21/16 09:21 Dose: 25 mg Metoprolol Tartrate (Lopressor) 12.5 mg PO Q12 [facility] Last Admin: 08/21/16 09:25 Dose: 12.5 mg Rosuvastatin Calcium (Crestor) 10 mg PO [facility] Last Admin: 08/20/16 21:10 Dose: 10 mg Sennosides (Senokot Tab) 8.6 mg PO [facility] Last Admin: 08/20/16 21:13 Dose: Not Given Thiamine HCl (Vitamin B1 Inj) 100 mg IV Q8H [facility] Last Admin: 08/21/16 05:20 Dose: 100 mg - Labs Labs: 08/21/16 09:48 08/21/16 09:48 PT 12.5 SECONDS (9.7-12.2) H 08/16/16 10:29 INR 1.1 08/16/16 10:29 APTT 29 SECONDS (21-34) D 08/17/16 06:03 - Constitutional Appears: Well, Non-toxic, No Acute Distress - Head Exam Head Exam: NORMAL INSPECTION, NORMOCEPHALIC - Eye Exam Eye Exam: EOMI, Normal appearance - ENT Exam ENT Exam: Mucous Membranes Moist - Respiratory Exam Respiratory Exam: Clear to Ausculation Bilateral, NORMAL BREATHING PATTERN - Cardiovascular Exam Cardiovascular Exam: REGULAR RHYTHM - GI/Abdominal Exam GI & Abdominal Exam: Soft, Normal Bowel Sounds - Neurological Exam Neurological Exam: Alert, Awake, CN II-XII Intact, Normal Gait, Oriented x3 Neuro motor strength exam: Left Upper Extremity: 5, Right Upper Extremity: 5, Left Lower Extremity: 5, Right Lower Extremity: 5 - Psychiatric Exam Psychiatric exam: Normal Affect, Normal Mood - Skin Skin Exam: Normal Color, Warm Assessment and Plan - Assessment and Plan (Free Text) Assessment: (1) Cardiac arrest; NonStemi Assessment & Plan: 08/21: He did not have cath on Monday. Hopefully will have it tommorow. He may need AICD. The EF was low on the echo. Currently doing ok. On telemetry has a lot of PVCs, no records of VT runs that I can find. NPO after midnight. 08/19: Pending cardiac cath later today. On Plavix, ASA, statin Consult: Dr Haynes (Cardiology) on board-->help appreciated-->pending cath Consult: Dr. Maza (cardiology-[facility]) on board-->help appreciated-->will need ICD V/Q scan negative for PE Patient s/p cardiac arrest and 1 defibrillation in HD center T, Cholestrol: 108, LDL: 46, HDL: 25 On Aspirin 81mg PO daily On plavix 75mg PO daily Troponin: 0.2410-->0.3480 proBNP 16308 Echocardiogram (08/17/16): left ventricle severely dilated, normal ventricular wall thickness, EF: 30-35%, extensive akinesia of septal, inferior inferoapical , left atrial pressure moderately elevated, mitral regurgitation moderate to severe Venous doppler: negative dvt Crestor 10mg po hs Metoprolol tartate 12.5mg po bid head CT (08/16/16): no intracranial mass, hemorrhage, or evidence of acute infarct. 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 Negrete) help appreciated Per neurology, likely secondary to cerebral hypoperfusion secondary to cardiac arrest and hypoxia Patient was in dialysis about 2 hours into session during suspected cardiac arrest EEG: mild b/l cerebral dysfunction, no noted seizure activity, per neurology head CT (08/16/16): no intracranial mass, hemorrhage, or evidence of acute infarct. 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 Negrete) help appreciated (3) ESRD (end stage renal disease) Assessment & Plan: Consult: Dr Mata (Nephrology) on board-->help appreciated (4) HTN (hypertension) Assessment & Plan: 08/21: Again stable in the 130s and 140s 08/20: Unchanged from before 08/19: Systolic BPs in the 140s recently Nephrology (Dr. Mata) on board-->help appreciated Lopressor 12.5mg PO Q 12hours ESRD (5) Prophylactic measure Assessment & Plan: DVT ppx: Heparin 5000 units subq 12hours GI px: pepcid 20mg IV q daily
[2016-08-22] MEDS ORDERED: DiphenhydrAMINE 50 mg/ml Inj ONE (07:44)
[2016-08-22 08:20] LABS: BASO # 0.1 K/uL (0.0-0.2); BASO % 1.5 % (0.0-2.0); EOS # 0.5 K/uL (0.0-0.7); EOS % 8.2 % (0.0-4.0); HEMATOCRIT 31.5 % (35.0-51.0); LYMPH # 1.4 K/uL (1.0-4.3); LYMPH % 22.8 % (20.0-40.0); MEAN CELL VOLUME 78.4 fL (80.0-94.0); MEAN CORPUSCULAR HEMOGLOBIN 23.8 pg (27.0-31.0); MEAN CORPUSCULAR HGB CONC 30.4 g/dL (33.0-37.0); MEAN PLATELET VOLUME 9.2 fL (7.2-11.7); MONO # 0.5 K/uL (0.0-0.8); MONO % 7.4 % (0.0-10.0); NRBC % 0.1 % (0.0-2.0); RED CELL DISTRIBUTION WIDTH 20.2 % (11.5-14.5); WHITE BLOOD COUNT 6.2 K/uL (4.8-10.8)
[2016-08-22 08:35] LABS: POTASSIUM 4.4 mmol/L (3.6-5.2)
[2016-08-22 08:37] LABS: ALB/GLOB RATIO 1.2 (1.0-2.1); BILIRUBIN,TOTAL 0.6 mg/dL (0.2-1.3); TOTAL PROTEIN 6.5 g/dL (6.3-8.3)
[2016-08-22] MEDS ORDERED: Midazolam 2 MG/2 ML VIAL ONE (08:37)
[2016-08-22 08:38] LABS: CALCIUM 9.9 mg/dl (8.6-10.4); MAGNESIUM 2.5 mg/dL (1.6-2.3); PHOSPHOROUS 5.9 mg/dL (2.5-4.5)
--- NOTE | 2016-08-22 09:01 | CP.PCM.PN ---
<Kacie Garcia - Last Filed: 08/22/16 11:11> Subjective - Date & Time of Evaluation Date of Evaluation: 08/22/16 Time of Evaluation: 11:11 - Subjective Subjective: Cardiology Progress Note for Dr. Maza Patient seen and examined at bedside s/p cardiac cath with Dr. Haynes. Cath results showed: 1. L Main: Patent 2. LAD: Mid 100%, D1 99%. Left to Left collaterals 3. L cx: patent, OM 99% 4. RCA: Proximal 100%, Left to Right and Right to Right collaterals 5. LV: EF 20%, EDP 30, No AV gradient Patient tolerated procedure well. Denied any acute chest pain, SOB, nausea, vomiting, diarrhea, pain at site. Patient for HD today s/p cath. [place] [facility] [place]. Patient understands he must continue to lie flat until 1pm today but is able to eat. Objective - Vital Signs/Intake and Output Vital Signs (last 24 hours): Temp Pulse Resp BP Pulse Ox 98.3 F 104 H 18 153/111 H 100 08/22/16 07:55 08/22/16 07:55 08/22/16 07:55 08/22/16 07:55 08/22/16 07:55 - Medications Medications: Current Medications Aspirin (Aspirin Chewable) 81 mg PO DAILY [facility] Last Admin: 08/22/16 07:52 Dose: 81 mg Calcium Acetate (Phoslo) 1,334 mg PO TIDCC [facility] Last Admin: 08/22/16 07:47 Dose: Not Given Clopidogrel Bisulfate (Plavix) 75 mg PO DAILY [facility] Last Admin: 08/22/16 07:52 Dose: 75 mg Docusate Sodium (Colace) 100 mg PO BID [facility] Last Admin: 08/21/16 17:37 Dose: Not Given Epoetin Imtiaz (Procrit) 10,000 unit IV TTS [facility] Last Admin: 08/20/16 10:03 Dose: 10,000 unit Famotidine (Pepcid) 20 mg IVP DAILY [facility] Last Admin: 08/21/16 09:25 Dose: 20 mg Heparin Sodium (Porcine) (Heparin) 5,000 units SC Q12 [facility] Last Admin: 08/21/16 21:37 Dose: Not Given Heparin Sodium (Porcine) (Heparin) 2,000 units IVP TTS [facility] Last Admin: 08/20/16 10:40 Dose: 2,000 units Heparin Sodium (Porcine) (Heparin) 4,600 units IVP TTS [facility] Last Admin: 08/20/16 10:41 Dose: 4,600 units Losartan Potassium (Cozaar) 25 mg PO DAILY [facility] Last Admin: 08/22/16 07:54 Dose: 25 mg Metoprolol Tartrate (Lopressor) 12.5 mg PO Q12 [facility] Last Admin: 08/22/16 07:52 Dose: 12.5 mg Rosuvastatin Calcium (Crestor) 10 mg PO HS [facility] Last Admin: 08/21/16 21:35 Dose: 10 mg Sennosides (Senokot Tab) 8.6 mg PO HS [facility] Last Admin: 08/21/16 21:38 Dose: Not Given Thiamine HCl (Vitamin B1 Tab) 100 mg PO TID [facility] Last Admin: 08/21/16 21:04 Dose: Not Given - Labs Labs: 08/22/16 08:09 08/22/16 08:09 PT 12.5 SECONDS (9.7-12.2) H 08/16/16 10:29 INR 1.1 08/16/16 10:29 APTT 29 SECONDS (21-34) D 08/17/16 06:03 - Constitutional Appears: Non-toxic, No Acute Distress - Head Exam Head Exam: ATRAUMATIC, NORMAL INSPECTION, NORMOCEPHALIC - Eye Exam Eye Exam: EOMI, Normal appearance, PERRL. absent: Conjunctival injection, Scleral icterus - Respiratory Exam Respiratory Exam: Clear to Ausculation Bilateral, NORMAL BREATHING PATTERN. absent: Accessory Muscle Use, Rales, Rhonchi, Wheezes, Respiratory Distress - Cardiovascular Exam Cardiovascular Exam: REGULAR RHYTHM, RRR, +S1, +S2 - GI/Abdominal Exam GI & Abdominal Exam: Soft, Normal Bowel Sounds. absent: Tenderness - Extremities Exam Extremities Exam: absent: Pedal Edema - Neurological Exam Neurological Exam: Alert, Awake - Skin Skin Exam: Dry, Intact, Normal Color, Warm Assessment and Plan - Assessment and Plan (Free Text) Assessment: 41 year old male PMHx ESRD on HD TTS, HTN, secondary hyperparathyroidism presented s/p cardiac arrest at HD center. Patient is s/p cardiac cath this AM. Plan: Severe ischemic cardiomyopathy and severe calcific triple vessel disease -Cardiac cath showed: 1. L Main: Patent 2. LAD: Mid 100%, D1 99%. Left to Left collaterals 3. L cx: patent, OM 99% 4. RCA: Proximal 100%, Left to Right and Right to Right collaterals 5. LV: EF 20%, EDP 30, No AV gradient -Recommend CABG -Patient likely to be [place] [facility] [place] to chair after 1pm this afternoon and patient can eat Will discuss with Dr. Link Garcia PGY2 <Ashlyn Maza - Last Filed: 09/26/16 07:44> Objective - Vital Signs/Intake and Output Vital Signs (last 24 hours): Temp Pulse Resp BP Pulse Ox 98.4 F 105 H 18 131/91 H 100 08/22/16 19:00 08/22/16 19:00 08/22/16 19:00 08/22/16 19:00 08/22/16 19:00 - Labs Labs: 08/22/16 08:09 08/22/16 08:09 PT 12.5 SECONDS (9.7-12.2) H 08/16/16 10:29 INR 1.1 08/16/16 10:29 APTT 29 SECONDS (21-34) D 08/17/16 06:03 Attending/Attestation - Attestation I have personally seen and examined this patient.: Yes I have fully participated in the care of the patient.: Yes I have reviewed all pertinent clinical information, including history, physical exam and plan: Yes Notes (Text): 09/26/16 07:44 s/p cardiac arrest will need CABG
[2016-08-22] MEDS ORDERED: Iodixanol 320 MG/ML 100 ML BOTTLE IV ONE (09:04)
--- NOTE | 2016-08-22 09:34 | CP.PCM.PN ---
Subjective - Date & Time of Evaluation Date of Evaluation: 08/22/16 Time of Evaluation: 09:29 - Subjective Subjective: Patient s/p cath 1. L Main: Patent 2. LAD: Mid 100%, D1 99%. Left to Left collaterals 3. L cx: patent, OM 99% 4. RCA: Proximal 100%, Left to Right and Right to Right collaterals 5. LV: EF 20%, EDP 30, No AV gradient Impression: 1. Severe Ischemic CMP 2. S/P cardiac arrest 3. DM II 4. Severe calcific Triple vessel disease Recommend CABG [place] [facility] discussing with the family D/C Plavix OOB to chair after 1pm today Resume hearty healthy/Renal diet Objective - Vital Signs/Intake and Output Vital Signs (last 24 hours): Temp Pulse Resp BP Pulse Ox 98.3 F 104 H 18 153/111 H 100 08/22/16 07:55 08/22/16 07:55 08/22/16 07:55 08/22/16 07:55 08/22/16 07:55 - Medications Medications: Current Medications Aspirin (Aspirin Chewable) 81 mg PO DAILY [facility] Last Admin: 08/22/16 07:52 Dose: 81 mg Calcium Acetate (Phoslo) 1,334 mg PO TIDCC [facility] Last Admin: 08/22/16 07:47 Dose: Not Given Docusate Sodium (Colace) 100 mg PO BID [facility] Last Admin: 08/21/16 17:37 Dose: Not Given Epoetin Imtiaz (Procrit) 10,000 unit IV TTS [facility] Last Admin: 08/20/16 10:03 Dose: 10,000 unit Famotidine (Pepcid) 20 mg IVP DAILY [facility] Last Admin: 08/21/16 09:25 Dose: 20 mg Heparin Sodium (Porcine) (Heparin) 5,000 units SC Q12 [facility] Last Admin: 08/21/16 21:37 Dose: Not Given Heparin Sodium (Porcine) (Heparin) 2,000 units IVP TTS [facility] Last Admin: 08/20/16 10:40 Dose: 2,000 units Heparin Sodium (Porcine) (Heparin) 4,600 units IVP TTS [facility] Last Admin: 08/20/16 10:41 Dose: 4,600 units Losartan Potassium (Cozaar) 25 mg PO DAILY [facility] Last Admin: 08/22/16 07:54 Dose: 25 mg Metoprolol Tartrate (Lopressor) 12.5 mg PO Q12 [facility] Last Admin: 08/22/16 07:52 Dose: 12.5 mg Rosuvastatin Calcium (Crestor) 10 mg PO HS [facility] Last Admin: 08/21/16 21:35 Dose: 10 mg Sennosides (Senokot Tab) 8.6 mg PO HS [facility] Last Admin: 08/21/16 21:38 Dose: Not Given Thiamine HCl (Vitamin B1 Tab) 100 mg PO TID [facility] Last Admin: 08/21/16 21:04 Dose: Not Given - Labs Labs: 08/22/16 08:09 08/22/16 08:09 PT 12.5 SECONDS (9.7-12.2) H 08/16/16 10:29 INR 1.1 08/16/16 10:29 APTT 29 SECONDS (21-34) D 08/17/16 06:03
--- NOTE | 2016-08-22 11:18 | CP.PCM.PN ---
Subjective - Date & Time of Evaluation Date of Evaluation: 08/22/16 Time of Evaluation: 11:15 - Subjective Subjective: s/p cardiac cath- severe CAD noted; has severe ischemic cardiomyopathy Will need dialysis post cath Will need transfer to [facility] for CABG Discussed situation with family and pt- all agree with plans Objective - Vital Signs/Intake and Output Vital Signs (last 24 hours): Temp Pulse Resp BP Pulse Ox 98.3 F 104 H 18 153/111 H 100 08/22/16 07:55 08/22/16 07:55 08/22/16 07:55 08/22/16 07:55 08/22/16 07:55 - Medications Medications: Current Medications Aspirin (Aspirin Chewable) 81 mg PO DAILY [facility] Last Admin: 08/22/16 07:52 Dose: 81 mg Calcium Acetate (Phoslo) 1,334 mg PO TIDCC [facility] Last Admin: 08/22/16 07:47 Dose: Not Given Docusate Sodium (Colace) 100 mg PO BID [facility] Last Admin: 08/21/16 17:37 Dose: Not Given Epoetin Imtiaz (Procrit) 10,000 unit IV TTS [facility] Last Admin: 08/20/16 10:03 Dose: 10,000 unit Famotidine (Pepcid) 20 mg IVP DAILY [facility] Last Admin: 08/21/16 09:25 Dose: 20 mg Heparin Sodium (Porcine) (Heparin) 5,000 units SC Q12 [facility] Last Admin: 08/21/16 21:37 Dose: Not Given Heparin Sodium (Porcine) (Heparin) 2,000 units IVP TTS [facility] Last Admin: 08/20/16 10:40 Dose: 2,000 units Heparin Sodium (Porcine) (Heparin) 4,600 units IVP TTS [facility] Last Admin: 08/20/16 10:41 Dose: 4,600 units Losartan Potassium (Cozaar) 25 mg PO DAILY [facility] Last Admin: 08/22/16 07:54 Dose: 25 mg Metoprolol Tartrate (Lopressor) 12.5 mg PO Q12 [facility] Last Admin: 08/22/16 07:52 Dose: 12.5 mg Rosuvastatin Calcium (Crestor) 10 mg PO HS [facility] Last Admin: 08/21/16 21:35 Dose: 10 mg Sennosides (Senokot Tab) 8.6 mg PO HS [facility] Last Admin: 08/21/16 21:38 Dose: Not Given Thiamine HCl (Vitamin B1 Tab) 100 mg PO TID [facility] Last Admin: 08/21/16 21:04 Dose: Not Given - Labs Labs: 08/22/16 08:09 08/22/16 08:09 PT 12.5 SECONDS (9.7-12.2) H 08/16/16 10:29 INR 1.1 08/16/16 10:29 APTT 29 SECONDS (21-34) D 08/17/16 06:03 - Constitutional Appears: No Acute Distress, Chronically Ill - Head Exam Head Exam: ATRAUMATIC, NORMAL INSPECTION - Eye Exam Eye Exam: EOMI, Normal appearance - Neck Exam Neck Exam: Normal Inspection. absent: Tenderness - Respiratory Exam Respiratory Exam: Clear to Ausculation Bilateral, NORMAL BREATHING PATTERN - Cardiovascular Exam Cardiovascular Exam: REGULAR RHYTHM, +S1 - GI/Abdominal Exam GI & Abdominal Exam: Soft. absent: Tenderness - Extremities Exam Extremities Exam: Normal Inspection. absent: Tenderness - Neurological Exam Neurological Exam: Awake, CN II-XII Intact - Skin Skin Exam: Dry, Warm Assessment and Plan (1) Secondary hyperparathyroidism Status: Acute (2) Cardiac arrest Status: Acute (3) Seizure Status: Acute (4) ESRD (end stage renal disease) Status: Chronic (5) HTN (hypertension) Status: Chronic (6) CAD (coronary artery disease), [place] coronary artery Status: Acute (7) Ischemic cardiomyopathy Status: Acute - Assessment and Plan (Free Text) Plan: Dialysis now Transfer to [facility] for CABG soon
[2016-08-22] MEDS: Thiamine 100 mg/ml Inj IV SCH (11:47)
[2016-08-22 19:20] VITALS: BP 131/91; PULSE 105; RESP 18; TEMP 98.4; O2SAT 100
--- NOTE | 2016-08-23 21:26 | CP.PCM.DIS ---
Provider - Provider Date of Admission: 08/16/16 13:34 Attending physician: Arjun Beasley DO Primary care physician: Dr regan Consults: Dr Dallas Negrete Time Spent in preparation of Discharge (in minutes): 45 Hospital Course - Lab Results Lab Results: Micro Results 08/16/16 15:20 Blood-Venous Blood Culture - Final NO GROWTH AFTER 5 DAYS 08/16/16 15:20 Blood-Venous Gram Stain - Final TEST NOT PERFORMED 08/16/16 14:50 Blood-Venous Blood Culture - Final NO GROWTH AFTER 5 DAYS 08/16/16 14:50 Blood-Venous Gram Stain - Final TEST NOT PERFORMED 08/20/16 04:42 Nose MRSA Culture - Final MRSA NOT DETECTED 08/16/16 14:38 Trachasp Gram Stain - Final 08/16/16 14:38 Trachasp Sputum Culture - Final NORMAL ORAL CUBA 08/16/16 14:11 Nose MRSA Culture (Admit) - Final MRSA NOT DETECTED Most Recent Lab Values WBC 6.2 K/uL (4.8-10.8) 08/22/16 08:09 RBC 4.02 Mil/uL (4.40-5.90) L 08/22/16 08:09 Hgb 9.6 g/dL (12.0-18.0) L 08/22/16 08:09 Hct 31.5 % (35.0-51.0) L 08/22/16 08:09 MCV 78.4 fL (80.0-94.0) L 08/22/16 08:09 MCH 23.8 pg (27.0-31.0) L 08/22/16 08:09 MCHC 30.4 g/dL (33.0-37.0) L 08/22/16 08:09 RDW 20.2 % (11.5-14.5) H 08/22/16 08:09 Plt Count 173 K/uL (130-400) 08/22/16 08:09 MPV 9.2 fL (7.2-11.7) 08/22/16 08:09 Neut % (Auto) 60.1 % (50.0-75.0) 08/22/16 08:09 Lymph % (Auto) 22.8 % (20.0-40.0) 08/22/16 08:09 [place] % (Auto) 7.4 % (0.0-10.0) 08/22/16 08:09 Eos % (Auto) 8.2 % (0.0-4.0) H 08/22/16 08:09 Baso % (Auto) 1.5 % (0.0-2.0) 08/22/16 08:09 Neut # 3.7 K/uL (1.8-7.0) 08/22/16 08:09 Lymph # 1.4 K/uL (1.0-4.3) 08/22/16 08:09 [place] # 0.5 K/uL (0.0-0.8) 08/22/16 08:09 Eos # 0.5 K/uL (0.0-0.7) 08/22/16 08:09 Baso # 0.1 K/uL (0.0-0.2) 08/22/16 08:09 PT 12.5 SECONDS (9.7-12.2) H 08/16/16 10:29 INR 1.1 08/16/16 10:29 APTT 29 SECONDS (21-34) D 08/17/16 06:03 D-Dimer, Quantitative 936 ng/mlDDU (0-243) H 08/16/16 15:30 Puncture Site Rr 08/18/16 05:53 pCO2 35 mm/Hg (35-45) 08/18/16 05:53 pO2 68 mm/Hg (80-100) L 08/18/16 05:53 HCO3 26.4 mmol/L (21-28) 08/18/16 05:53 ABG pH 7.47 (7.35-7.45) H 08/18/16 05:53 ABG Total CO2 26.6 mmol/L (22-28) 08/18/16 05:53 ABG O2 Saturation 96.4 % (95-98) 08/18/16 05:53 ABG Base Excess 1.9 mmol/L (-2.0-3.0) 08/18/16 05:53 ABG Hemoglobin 9.3 g/dL (11.7-17.4) L 08/18/16 05:53 ABG Carboxyhemoglobin 2.4 % (0.5-1.5) H 08/18/16 05:53 POC ABG HHb (Measured) 3.5 % (0.0-5.0) 08/18/16 05:53 ABG Methemoglobin 0.7 % (0.0-3.0) 08/18/16 05:53 Alberto Test Pos 08/18/16 05:53 ABG Potassium 3.1 mmol/L (3.6-5.2) L 08/16/16 14:59 A-a O2 Difference 38.0 mm/Hg 08/18/16 05:53 Respiratory Index 0.6 08/18/16 05:53 Hgb O2 Saturation 93.3 % (95.0-98.0) L 08/18/16 05:53 Sodium 140.0 mmol/l (132-148) 08/16/16 14:59 Chloride 106.0 mmol/L (98-107) 08/16/16 14:59 Glucose 77 mg/dl (75-110) 08/16/16 14:59 Lactate 1.4 mmol/L (0.7-2.1) 08/16/16 14:59 Mechanical Rate 12 08/17/16 04:35 FiO2 21.0 % 08/18/16 05:53 Tidal Volume 500 08/17/16 04:35 PEEP 5 08/17/16 04:35 Sodium 140 mmol/L (132-148) 08/22/16 08:09 Potassium 4.4 mmol/L (3.6-5.2) 08/22/16 08:09 Chloride 97 mmol/L (98-107) L 08/22/16 08:09 Carbon Dioxide 25 mmol/L (22-30) 08/22/16 08:09 Anion Gap 22 (10-20) H 08/22/16 08:09 BUN 49 mg/dL (9-20) H 08/22/16 08:09 Creatinine 11.1 MG/DL (0.8-1.5) H* 08/22/16 08:09 Est GFR ( Amer) 6 08/22/16 08:09 Est GFR (Non-Af Amer) 5 08/22/16 08:09 POC Glucose (mg/dL) 95 mg/dL (65-110) 08/22/16 06:30 Random Glucose 73 mg/dL (75-110) L 08/22/16 08:09 Hemoglobin A1c 5.7 % (4.2-6.5) 08/17/16 06:03 Calcium 9.9 mg/dl (8.6-10.4) 08/22/16 08:09 Phosphorus 5.9 mg/dL (2.5-4.5) H 08/22/16 08:09 Magnesium 2.5 mg/dL (1.6-2.3) H 08/22/16 08:09 % Saturation 22 (20-55) 08/18/16 06:31 Ferritin 922.0 ng/mL 08/18/16 06:31 Total Bilirubin 0.6 mg/dL (0.2-1.3) 08/22/16 08:09 AST 23 U/L (17-59) 08/22/16 08:09 ALT 24 U/L (21-72) 08/22/16 08:09 Alkaline Phosphatase 284 U/L (38-126) H 08/22/16 08:09 Total Creatine Kinase 439 U/L (55-170) H 08/16/16 15:30 CK-MB (Mass) 5.80 ng/mL (0.0-3.38) H 08/16/16 15:30 Troponin I 0.2410 ng/mL (0.00-0.120) H* 08/16/16 10:29 Troponin I, Quant 0.3480 ng/mL (0.00-0.120) H* 08/16/16 15:30 NT-Pro-B Natriuret Pep 01837 pg/mL (0-450) H 08/16/16 10:29 Total Protein 6.5 g/dL (6.3-8.3) 08/22/16 08:09 Albumin 3.5 g/dL (3.5-5.0) 08/22/16 08:09 Globulin 3.0 gm/dL (2.2-3.9) 08/22/16 08:09 Albumin/Globulin Ratio 1.2 (1.0-2.1) 08/22/16 08:09 Triglycerides 700 mg/dL (0-149) H 08/17/16 06:03 Cholesterol 108 mg/dL (0-199) 08/17/16 06:03 LDL Cholesterol Direct 46 mg/dL (0-129) 08/17/16 06:03 HDL Cholesterol 25 mg/dL (30-70) L 08/17/16 06:03 Lipase 52 U/L (23-300) 08/16/16 10:29 PTH Intact Whole Molec 1415 pg/mL (14-64) H 08/18/16 06:31 Arterial Blood Potassium 3.1 mmol/L (3.6-5.2) L 08/16/16 14:59 - Hospital Course Hospital Course: HPI: 41 year old male PMHx ESRD on HD TTS, HTN, secondary hyperparathyroidism presented s/p cardiac arrest at HD center. Patient was having dialysis for 2.5 hours and was complaining of dizziness and soon became unresponsive. Patient was coded and was defibrillated one time before EMS arrived. Patient was found unconscious with sinus tachycardia and palpable pulse and had bilateral nasal trumpets placed and was brought to ER. Patient was given bicarb and calcium en route to ED and fingerstick BG was 180. In the ED patient had profuse oral secretions and had two witnessed tonic clonic seizures and was given 2 doses of ativan. Patient intubated for airway protection and placed on vent. reports that since last year patient has been complaining of some SOB and dyspnea on exertion [especially when walking up stairs at home and walking 1/2 to 1 a block] and b/l leg swelling and pain. Patient also had an episode of dizziness 1 month ago during HD after which he had en episode of nonbloody nonbiliuos emesis. denied patient having missed HD, no prior hx of seizures , no travel hx, sick contacts, recent illnesses. denied patient complaining of any recent fever, chills, pain in his chest, cough, abd pain, bowel complaints. PMD: Dr Regan Side Door Man: Dr. Mata/Alivia PMHx: ESRD on HD TTS, HTN, secondary hyperparathyroidism Meds: please see chart ALL: NKDA PSurg: femoral permacath 12/16/16 PHospitalization: Nov 2015 for hyperkalemia FamHx: no hx of CVA, CA; lung cancer in aunt who is a smoker SocHx: denies tobacco, EtOH, drug use. Currently unemployed and lives at home with . Denied any recent travel. ROS: unobtainable Hospital Course: (1) Cardiac arrest; NonStemi 08/22: Cath done today, awaiting bed at [facility] for transfer 08/21: He did not have cath on Monday. Hopefully will have it tommorow. He may need AICD. The EF was low on the echo. Currently doing ok. On telemetry has a lot of PVCs, no records of VT runs that I can find. NPO after midnight. 08/19: Pending cardiac cath later today. On Plavix, ASA, statin Consult: Dr Haynes (Cardiology) on board-->help appreciated-->pending cath Consult: Dr. Maza (cardiology-EPS) on board-->help appreciated-->will need ICD V/Q scan negative for PE Patient s/p cardiac arrest and 1 defibrillation in HD center T, Cholestrol: 108, LDL: 46, HDL: 25 On Aspirin 81mg PO daily On plavix 75mg PO daily Troponin: 0.2410-->0.3480 proBNP 27376 Echocardiogram (08/17/16): left ventricle severely dilated, normal ventricular wall thickness, EF: 30-35%, extensive akinesia of septal, inferior inferoapical , left atrial pressure moderately elevated, mitral regurgitation moderate to severe Venous doppler: negative dvt Crestor 10mg po hs Metoprolol tartate 12.5mg po bid head CT (08/16/16): no intracranial mass, hemorrhage, or evidence of acute infarct. 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 Negrete) help appreciated Per neurology, likely secondary to cerebral hypoperfusion secondary to cardiac arrest and hypoxia Patient was in dialysis about 2 hours into session during suspected cardiac arrest EEG: mild b/l cerebral dysfunction, no noted seizure activity, per neurology head CT (08/16/16): no intracranial mass, hemorrhage, or evidence of acute infarct. 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 Negrete) help appreciated (3) ESRD (end stage renal disease) Consult: Dr Mata (Nephrology) on board-->help appreciated (4) HTN (hypertension) 08/21: Again stable in the 130s and 140s 08/20: Unchanged from before 08/19: Systolic BPs in the 140s recently Nephrology (Dr. Mata) on board-->help appreciated Lopressor 12.5mg PO Q 12hours ESRD Discharge Exam - Head Exam Head Exam: ATRAUMATIC, NORMAL INSPECTION - Eye Exam Eye Exam: EOMI, Normal appearance, PERRL Pupil Exam: NORMAL ACCOMODATION - ENT Exam ENT Exam: Mucous Membranes Moist - Neck Exam Neck exam: Full Rom - Respiratory Exam Respiratory Exam: Clear to PA & Lateral, NORMAL BREATHING PATTERN - Cardiovascular Exam Cardiovascular Exam: REGULAR RHYTHM, +S1, +S2 - GI/Abdominal Exam GI & Abdominal Exam: Normal Bowel Sounds - Rectal Exam Rectal Exam: Deferred - Neurological Exam Neurological exam: Alert, Oriented x3, Reflexes Normal - Psychiatric Exam Psychiatric exam: Normal Affect, Normal Mood - Skin Skin Exam: Dry, Intact, Normal Color, Warm Discharge Plan - Follow Up Plan Condition: FAIR Disposition: Trans to Other Acute Care [facility] Additional Instructions: Patient is medically stable s/p cath procedure for transfer to [facility] as per Dr Velásquez and Dr Haynes when bed available. Please resume medications as per medication reconciliation. Management of medications as per accepting doctor. Cath site care daily. Patient is to follow up with senior sharepoint architect and PMD Dr Regan within 1 week of discharge from [facility]. Referrals: Freddy Haynes MD [Staff Provider] - Davonte Regan DO [Doctor Osteopathy] -
--- NOTE | 2016-09-15 14:36 | CARDCATH ---
Hospital: [facility] Procedures: 1) Left heart catheterization 2) coronary angiogram Clinical indications: 1) Cardiac arrest 2) Coronary artery disease 3) Ischemic cardiomyopathy 4) Hypertension 5) Chronic renal failure on hemodialysis Performing physician: Dr. Freddy Haynes Referring physician: Dr. Arjun Berry Procedure: After informed consent was obtained, patient was prepped and draped in a usual sterile fashion. 2% lidocaine was given in the right groin for anesthesia using micropuncture technique ____ right common femoral artery. Using the usual diagnostic catheters, left heart catheterization and coronary angiogram was performed. Patient tolerated the procedure well. Findings: 1) Left main coronary artery is patent 2) ____. ____. Diagonal branch has a ____ proximal stenosis. 3) Left circumflex is patent. However, large marginal obtuse branch has a 99% stenosis 4) Right coronary artery is 100% occluded in the proximal region. There are right-right and left-right collaterals. 5) ____ fraction is approximately 20%. Global ____. EDP is 30. ____. Reflection: 1) Severe calcific papillary cell disease 2) Ischemic cardiomyopathy with deconstruction of ____. 3) Diabetes 4) Chronic renal faliure on hemodialysis Given the presentation of cardiac arrest, ischemic cardiomyopathy, and triple vessel disease, recommend coronary artery bypass graft. [facility]
--- NOTE | 2016-09-23 14:13 | EEG ---
Subjective - Date & Time of Evaluation Date of Evaluation: 08/17/16 Time of Evaluation: 10:00 - Subjective Subjective: EEG REPORT: CONDITION OF THIS RECORDING: DROWSY DIAGNOSIS: AMS MEDICATIONS:l REVIEWED BY NURSE'S RECONCILIATION INTERPRETATION: THIS IS A 16 CHANNEL INTERNATIONAL RECORDING. THE BACKEND OF THIS TRACING WAS COMPOSED OF 6-7 CYCLES PER SECOND. THERE WAS SMALL AMOUNT OF BETA ACTIVITY OF 16-20 CPS IN THE RECORDING AND INCREASE AMOUNT OF THETA ACTIVITY OF 5-7 CPS SEEN IN THIS TRACING. DROWSINESS WAS CHARACTERIZED BY MIXED BETA AND THETA ACTIVITIES. SLEEP WAS CHARACTERIZED BY VERTEX TRANSIENT WAVE, SLEEP SPINDLES, AND B/L SLOWING. PHOTIC STIMULATION SHOWED NO CHANGE IN THE TRACING. NO PAROXYSMAL ACTIVITY NOTED IN THIS RECORDING. EMG ARTIFICAT WAS SEEN. CONCLUSION: THIS IS AN ABNORMAL EEG SHOWING MILD B/L SLOWING THROUGHOUT THE RECORDING CONSISTENT WITH MILD B/L CEREBRAL DYSFUNCTION. NO SEIZURE ACTIVITY. Aretha NEGRETE MD Objective - Vital Signs/Intake and Output Vital Signs (last 24 hours): Temp Pulse Resp BP Pulse Ox 99.8 F H 98 H 17 106/67 99 08/17/16 16:00 08/17/16 16:45 08/17/16 16:45 08/17/16 16:18 08/17/16 16:45 Intake and Output: 08/17/16 08/17/16 06:59 18:59 Intake Total 1512.9 254.3 Balance 1512.9 254.3 - Medications Medications: Current Medications Aspirin (Aspirin Chewable) 81 mg PO DAILY [facility] Last Admin: 08/17/16 09:49 Dose: 81 mg Calcium Acetate (Phoslo) 1,334 mg PO TIDCC [facility] Last Admin: 08/17/16 14:00 Dose: Not Given Clopidogrel Bisulfate (Plavix) 75 mg PO DAILY [facility] Last Admin: 08/17/16 09:49 Dose: 75 mg Epoetin Imtiaz (Procrit) 10,000 unit IV TTS [facility] Famotidine (Pepcid) 20 mg IVP DAILY [facility] Last Admin: 08/17/16 09:49 Dose: 20 mg Heparin Sodium (Porcine) (Heparin) 5,000 units SC Q12 [facility] Last Admin: 08/17/16 09:48 Dose: 5,000 units Metoprolol Tartrate (Lopressor) 12.5 mg PO Q12 [facility] Last Admin: 08/17/16 10:09 Dose: Not Given Rosuvastatin Calcium (Crestor) 10 mg PO HS [facility] Last Admin: 08/16/16 22:09 Dose: 10 mg Thiamine HCl (Vitamin B1 Inj) 100 mg IV Q8H [facility] Last Admin: 08/17/16 12:41 Dose: 100 mg - Labs Labs: 08/17/16 06:03 08/17/16 06:03 PT 12.5 SECONDS (9.7-12.2) H 08/16/16 10:29 INR 1.1 08/16/16 10:29 APTT 29 SECONDS (21-34) D 08/17/16 06:03 Dictated By: Charly Negrete MD Dictated Date/Time: 08/17/161716 Signed By: Charyl Negrete MD<<Signature on File>> Signed Date/Time: 08/17/161716 Co-Signed By: Co-Signed Date/Time: Attestation: ROBERTD
== END 2016-08-22 20:58 | disposition short-term general hospital (02) | DRG 280 ==
LOC: C.ER 09:58 → C.9I 13:34 → C.6T 08-20 06:20
PROVIDERS: ADMIT Hospitalist; ATTEND Hospitalist
PROC: 5A1945Z Respiratory Ventilation, 24-96 Consecutive Hours (ICD-10-PCS; principal; 2016-08-16)
PROC: 0BH17EZ Insertion of Endotracheal Airway into Trachea, Via Natural or Artificial Opening (ICD-10-PCS; 2016-08-16)
PROC: 4A023N7 Measurement of Cardiac Sampling and Pressure, Left Heart, Percutaneous Approach (ICD-10-PCS; 2016-08-22)
PROC: B2151ZZ Fluoroscopy of Left Heart using Low Osmolar Contrast (ICD-10-PCS; 2016-08-22)
PROC: B2111ZZ Fluoroscopy of Multiple Coronary Arteries using Low Osmolar Contrast (ICD-10-PCS; 2016-08-22)
DX: I21.4 Non-ST elevation (NSTEMI) myocardial infarction (principal); J96.91 Respiratory failure, unspecified with hypoxia; I46.9 Cardiac arrest, cause unspecified; N18.6 End stage renal disease; I47.2 Ventricular tachycardia; I12.0 Hypertensive chronic kidney disease with stage 5 chronic kidney disease or end stage renal disease; I47.1 Supraventricular tachycardia; N25.81 Secondary hyperparathyroidism of renal origin; E11.22 Type 2 diabetes mellitus with diabetic chronic kidney disease; R56.9 Unspecified convulsions; D63.1 Anemia in chronic kidney disease; I25.5 Ischemic cardiomyopathy; I25.10 Atherosclerotic heart disease of native coronary artery without angina pectoris; E78.5 Hyperlipidemia, unspecified; I34.0 Nonrheumatic mitral (valve) insufficiency; Z99.2 Dependence on renal dialysis